=== PATIENT | female | born 1985 | race American Indian/Alaskan Native ===

== ENCOUNTER 2020-05-30 01:51 | Inpatient (IN) | payer OTHER, SELFPAY ==
[2020-05-30] MEDS ORDERED: SODIUM CHLORIDE 0.9% 1000 ML 1,000 ML IV ONE ×2 (02:12→02:14)
[2020-05-30] MEDS ORDERED: FAMOTIDINE 20 MG/2 ML INJ IV ONE ×2 (02:12→05:30)
[2020-05-30] MEDS ORDERED: PROCHLORPERAZINE EDISYLATE 10 MG/2 ML VIAL IV ONE ×2 (02:12→05:45)
[2020-05-30 03:46] LABS: Basophils # (Auto) 0.1 K/mm3 (0.0-0.1); Basophils % (Auto) 0.7 % (0.0-1.8); Lymphocytes % (Auto) 8.5 % (13.4-35.0); Mean Corpuscular HGB Conc 31 % (30-34); Mean Corpuscular Volume 83 fl (79-97); Monocytes # (Auto) 0.9 K/mm3 (0.0-0.8); Monocytes % (Auto) 7.6 % (0.0-7.3); Platelet Count 311 K/mm3 (140-440); Red Blood Count 4.85 M/mm3 (3.65-5.03)
[2020-05-30 04:05] LABS: Hematocrit 40.4 % (30.3-42.9); Hemoglobin 12.4 gm/dl (10.1-14.3)
[2020-05-30 04:09] LABS: Alanine Aminotransferase 19 units/L (7-56); Albumin 4.3 g/dL (3.9-5); BUN/Creatinine Ratio 18; Blood Urea Nitrogen 18 mg/dL (7-17); Calcium 9.6 mg/dL (8.4-10.2); Hemolysis Index 8
--- NOTE | 2020-05-30 04:30 | Event Note ---
Date: 05/30/20 The patient was evaluated in the emergency department for symptoms described in the history of present illness. He/she was evaluated in the context of the global COVID-19 pandemic, which necessitated consideration that the patient might be at risk for infection with the virus that causes COVID-19. Institutional protocols and algorithms that pertain to the evaluation of patients at risk for COVID-19 are in a state of rapid change based on information released by regulatory bodies including the CDC and federal and state organizations. These policies and algorithms were followed during the patient's care in the emergency department. Please note that these policies, procedures and recommendations changed on a rapid basis. Laboratory studies reviewed and appreciated, patient's laboratory studies were brought to my attention by the charge nurse, Mahi Conn This is consistent with diabetic ketoacidosis. I have informed the [facility] charge nurse to bring the patient back to the main emergency room as soon as possible so we may initiate treatment in therapy for presumed diabetic ketoacidosis Vital Signs 05/30/20 02:06 Temperature 97.7 F Pulse Rate 116 H Respiratory 20 Rate Blood Pressure 128/78 [Right] O2 Sat by Pulse 100 Oximetry Lab Results 05/30/20 05/30/20 05/30/20 Range/Units 03:06 03:06 03:06 WBC 11.9 H (4.5-11.0) K/mm3 RBC 4.85 (3.65-5.03) M/mm3 Hgb 12.4 (10.1-14.3) gm/dl Hct 40.4 (30.3-42.9) % MCV 83 (79-97) fl MCH 26 L (28-32) pg MCHC 31 (30-34) % RDW 16.0 H (13.2-15.2) % Plt Count 311 (140-440) K/mm3 Lymph % (Auto) 8.5 L (13.4-35.0) % [place] % (Auto) 7.6 H (0.0-7.3) % Eos % (Auto) 0.0 (0.0-4.3) % Baso % (Auto) 0.7 (0.0-1.8) % Lymph # (Auto) 1.0 L (1.2-5.4) K/mm3 [place] # (Auto) 0.9 H (0.0-0.8) K/mm3 Eos # (Auto) 0.0 (0.0-0.4) K/mm3 Baso # (Auto) 0.1 (0.0-0.1) K/mm3 Seg Neutrophils % 83.2 H (40.0-70.0) % Seg Neutrophils # 9.9 H (1.8-7.7) K/mm3 Sodium 134 L (137-145) mmol/L Potassium 5.1 H (3.6-5.0) mmol/L Chloride 94.1 L (98-107) mmol/L Carbon Dioxide 4 L* (22-30) mmol/L Anion Gap 41 mmol/L BUN 18 H (7-17) mg/dL Creatinine 1.0 (0.6-1.2) mg/dL Estimated GFR > 60 ml/min BUN/Creatinine Ratio 18 % Glucose 616 H* (65-100) mg/dL Calcium 9.6 (8.4-10.2) mg/dL Total Bilirubin 0.20 (0.1-1.2) mg/dL AST 28 (5-40) units/L ALT 19 (7-56) units/L Alkaline Phosphatase 186 H (35-129) units/L Troponin T < 0.010 (0.00-0.029) ng/mL Total Protein 8.0 (6.3-8.2) g/dL Albumin 4.3 (3.9-5) g/dL Albumin/Globulin Ratio 1.2 % Lipase 10 L (13-60) units/L HCG, Qual Negative (Negative)
--- NOTE | 2020-05-30 04:49 | Emergency Department Report ---
ED General Adult HPI - General Chief complaint: Weakness Stated complaint: DIABETIC/WEAKNESS/BODY ACHES PUI?: Yes Time Seen by Provider: 05/30/20 04:49 Source: patient, RN notes reviewed Mode of arrival: Ambulatory Limitations: Physical Limitation - History of Present Illness Initial comments: The patient was evaluated in the emergency department for symptoms described in the history of present illness. He/she was evaluated in the context of the global COVID-19 pandemic, which necessitated consideration that the patient micaela ht be at risk for infection with the virus that causes COVID-19. Institutional protocols and algorithms that pertain to the evaluation of patients at risk for COVID-19 are in a state of rapid change based on information released by regulatory bodies including the CDC and federal and state organizations. These policies and algorithms were followed during the patient's care in the emergency department. Please note that these policies, procedures and recommendations changed on a rapid basis. During the entire history and physical examination, I had on complete personal protective equipment. Primary CARE doctor: Carlos Enrique The patient is a 34-year-old female. She is not known to myself previously. She reports she has a history of type 1 diabetes. She has a history of DKA. She presents to the ER today with a complaint of body aches, malaise, fatigue, weakness, shortness of breath, dry mouth, no loss of taste, no loss of smell, questionable Covid exposure, patient thinks that she has diabetic ketoacidosis and possibly Covid. Symptoms constant for the past 12 hours. Positive nausea. No fever. No loss of taste or smell. No chest pain. Positive shortness of breath. Positive abd ominal cramping. Positive nausea. No dysuria. No focal extremity weakness/numbness -: Gradual, hour(s) Consistency: constant Improves with: rest Worsens with: movement - Related Data Home Medications Medication Instructions Recorded Confirmed Last Taken Insulin Detemir [Levemir Flextouch] unit SQ BID 05/30/20 Unknown Insulin Lispro [Humalog] See Protocol SQ ACHS 05/30/20 05/30/20 Unknown Allergies Allergy/AdvReac Type Severity Reaction Status Date / Time No Known Allergies Allergy Verified 05/31/20 11:12 ED Review of Systems ROS: Stated complaint: DIABETIC/WEAKNESS/BODY ACHES Other details as noted in HPI Constitutional: malaise, weakness, other (Denies loss of taste and smell) Eyes: denies: eye discharge ENT: other (Dry mouth). denies: epistaxis Respiratory: cough, shortness of breath Cardiovascular: denies: chest pain Gastrointestinal: nausea. denies: abdominal pain Genitourinary: denies: dysuria Musculoskeletal: arthralgia, myalgia Neurological: weakness Hematological/Lymphatic: denies: easy bleeding ED Past Medical Hx - Past Medical History Previous Medical History?: Yes Hx Diabetes: Yes (TYPE 1) - Surgical History Past Surgical History?: Yes Additional Surgical History: mouth - Medications Home Medications: Home Medications Medication Instructions Recorded Confirmed Last Taken Type Insulin Detemir [Levemir Flextouch] unit SQ BID 05/30/20 Unknown History Insulin Lispro [Humalog] See Protocol SQ ACHS 05/30/20 05/30/20 Unknown History ED Physical Exam - General Limitations: Physical Limitation General appearance: alert, anxious, in distress - Head Head exam: Present: atraumatic, normocephalic - Eye Eye exam: Present: normal appearance, EOMI. Absent: nystagmus - ENT ENT exam: Present: normal orophraynx, mucous membranes dry, normal external ear exam - Neck Neck exam: Present: normal inspection, full ROM. Absent: tenderness, meningi smus - Respiratory Respiratory exam: Present: respiratory distress, accessory muscle use, other (Pulmonary auscultation not performed secondary to lack of disposable stethoscope). Absent: stridor - Cardiovascular Cardiovascular Exam: Present: other (Cardiac auscultation not performed secondary to lack of disposable stethoscope). Absent: JVD - GI/Abdominal GI/Abdominal exam: Present: soft. Absent: distended, tenderness, guarding, rebound, rigid, pulsatile mass - Extremities Exam Extremities exam: Present: normal inspection, full ROM, other (2+ pulses noted in the bilateral upper and lower extremities. There is no palpable cord. neg ative Homans sign. Muscular compartments are soft. The pelvis is stable.). Absent: pedal edema, calf tenderness - Back Exam Back exam: Present: normal inspection. Absent: tenderness, CVA tenderness (R), CVA tenderness (L), paraspinal tenderness, vertebral tenderness - Neurological Exam Neurological exam: Present: alert, other (No facial droop. Tongue midline. Extraocular movements intact bilaterally. Facial sensation intact to light touch in V1, V2, V3 distribution bilaterally. 5 and a 5 strength in 4 extremi ties. Sensation intact to light touch in 4 extremities.) - Psychiatric Psychiatric exam: Present: anxious - Skin Skin exam: Present: warm, dry, intact, normal color. Absent: rash ED Course Vital Signs 05/30/20 05/30/20 05/30/20 02:06 05:22 05:23 Temperature 97.7 F Pulse Rate 116 H 109 H Respiratory 20 15 16 Rate Blood Pressure Blood Pressure 128/78 [Right] O2 Sat by Pulse 100 100 Oximetry 05/30/20 05/30/20 05/30/20 05:24 05:26 05:28 Temperature Pulse Rate 111 H 110 H 108 H Respiratory 15 14 14 Rate Blood Pressure 119/68 119/68 119/68 Blood Pressure [Right] O2 Sat by Pulse 99 99 99 Oximetry 05/30/20 05/30/20 05/30/20 05:30 05:32 05:34 Temperature Pulse Rate 108 H 109 H 111 H Respiratory 15 15 15 Rate Blood Pressure 125/64 125/64 125/64 Blood Pressure [Right] O2 Sat by Pulse 99 99 100 Oximetry 05/30/20 05/30/20 05/30/20 05:36 05:38 05:40 Temperature Pulse Rate 107 H 111 H 110 H Respiratory 13 15 14 Rate Blood Pressure 125/64 125/64 125/64 Blood Pressure [Right] O2 Sat by Pulse 100 99 100 Oximetry 05/30/20 05/30/20 05/30/20 05:42 05:44 05:45 Temperature Pulse Rate 113 H 111 H 110 H Respiratory 14 14 14 Rate Blood Pressure 125/64 125/64 138/60 Blood Pressure [Right] O2 Sat by Pulse 100 99 99 Oximetry 05/30/20 05/30/20 05/30/20 05:46 05:48 05:50 Temperature Pulse Rate 113 H 111 H 111 H Respiratory 14 15 15 Rate Blood Pressure 138/60 138/60 138/60 Blood Pressure [Right] O2 Sat by Pulse 100 99 99 Oximetry 05/30/20 05/30/20 05/30/20 05:52 05:54 05:56 Temperature Pulse Rate 112 H 109 H 111 H Respiratory 15 14 13 Rate Blood Pressure 138/60 138/60 138/60 Blood Pressure [Right] O2 Sat by Pulse 100 100 100 Oximetry 05/30/20 05/30/20 05/30/20 05:58 06:00 06:02 Temperature Pulse Rate 110 H 108 H 109 H Respiratory 15 15 14 Rate Blood Pressure 138/60 138/60 131/67 Blood Pressure [Right] O2 Sat by Pulse 99 99 99 Oximetry 05/30/20 05/30/20 05/30/20 06:04 06:06 06:08 Temperature Pulse Rate 110 H 107 H 108 H Respiratory 15 14 14 Rate Blood Pressure 131/67 131/67 131/67 Blood Pressure [Right] O2 Sat by Pulse 99 100 100 Oximetry 05/30/20 05/30/20 05/30/20 06:10 06:12 06:14 Temperature Pulse Rate 108 H 108 H 108 H Respiratory 16 13 13 Rate Blood Pressure 131/67 131/67 131/67 Blood Pressure [Right] O2 Sat by Pulse 100 100 100 Oximetry 05/30/20 05/30/20 05/30/20 06:15 06:16 06:18 Temperature Pulse Rate 109 H 110 H 109 H Respiratory 14 16 15 Rate Blood Pressure 138/67 138/67 138/67 Blood Pressure [Right] O2 Sat by Pulse 100 100 99 Oximetry 05/30/20 05/30/20 05/30/20 06:20 06:22 06:24 Temperature Pulse Rate 108 H 109 H 106 H Respiratory 14 14 13 Rate Blood Pressure 138/67 138/67 138/67 Blood Pressure [Right] O2 Sat by Pulse 99 99 99 Oximetry 05/30/20 05/30/20 05/30/20 06:26 06:28 06:30 Temperature Pulse Rate 108 H 107 H 107 H Respiratory 15 15 14 Rate Blood Pressure 138/67 138/67 140/68 Blood Pressure [Right] O2 Sat by Pulse 100 99 100 Oximetry 05/30/20 05/30/20 05/30/20 06:32 06:34 07:39 Temperature 99.1 F Pulse Rate 107 H 109 H Respiratory 14 20 Rate Blood Pressure 138/60 Blood Pressure 131/71 [Right] O2 Sat by Pulse 100 99 Oximetry ED Medical Decision Making - Lab Data Result diagrams: 06/02/20 07:45 06/02/20 07:45 Vital Signs 05/30/20 05/30/20 02:06 05:23 Temperature 97.7 F Pulse Rate 116 H 109 H Respiratory 20 16 Rate Blood Pressure 128/78 [Right] O2 Sat by Pulse 100 100 Oximetry Lab Results 05/30/20 05/30/20 05/30/20 Range/Units 03:06 03:06 03:06 WBC 11.9 H (4.5-11.0) K/mm3 RBC 4.85 (3.65-5.03) M/mm3 Hgb 12.4 (10.1-14.3) gm/dl Hct 40.4 (30.3-42.9) % MCV 83 (79-97) fl MCH 26 L (28-32) pg MCHC 31 (30-34) % RDW 16.0 H (13.2-15.2) % Plt Count 311 (140-440) K/mm3 Lymph % (Auto) 8.5 L (13.4-35.0) % [place] % (Auto) 7.6 H (0.0-7.3) % Eos % (Auto) 0.0 (0.0-4.3) % Baso % (Auto) 0.7 (0.0-1.8) % Lymph # (Auto) 1.0 L (1.2-5.4) K/mm3 [place] # (Auto) 0.9 H (0.0-0.8) K/mm3 Eos # (Auto) 0.0 (0.0-0.4) K/mm3 Baso # (Auto) 0.1 (0.0-0.1) K/mm3 Seg Neutrophils % 83.2 H (40.0-70.0) % Seg Neutrophils # 9.9 H (1.8-7.7) K/mm3 Sodium 134 L (137-145) mmol/L Potassium 5.1 H (3.6-5.0) mmol/L Chloride 94.1 L (98-107) mmol/L Carbon Dioxide 4 L* (22-30) mmol/L Anion Gap 41 mmol/L BUN 18 H (7-17) mg/dL Creatinine 1.0 (0.6-1.2) mg/dL Estimated GFR > 60 ml/min BUN/Creatinine Ratio 18 % Glucose 616 H* (65-100) mg/dL Calcium 9.6 (8.4-10.2) mg/dL Total Bilirubin 0.20 (0.1-1.2) mg/dL AST 28 (5-40) units/L ALT 19 (7-56) units/L Alkaline Phosphatase 186 H (35-129) units/L Troponin T < 0.010 (0.00-0.029) ng/mL Total Protein 8.0 (6.3-8.2) g/dL Albumin 4.3 (3.9-5) g/dL Albumin/Globulin Ratio 1.2 % Lipase 10 L (13-60) units/L HCG, Qual Negative (Negative) - EKG Data -: EKG Interpreted by Me EKG shows normal: sinus rhythm Rate: tachycardia - EKG Data When compared to previous EKG there are: previous EKG unavailable 05/30/20 05:42 EKG interpreted at 2: 20 a.m. Sinus rhythm, tachycardia, 109 bpm. QTC prolonged, 444 ms. High left ve ntricular voltage. Motion artifact. This is an abnormal EKG. This is not a STEMI. - Radiology Data Radiology results: pending, image reviewed interpreted by me: 1 view x-ray of the chest, interpreted by myself, negative for acute findings. - Medical Decision Making Differential diagnosis, including but not limited to: Dehydration, metabolic acidosis, hyperglycemia, diabetic ketoacidosis, viral syndrome, COVID-19 Assessment and plan: 34-year-old female presenting during the COVID-19 pandemic, with nonspecific constitutional symptoms, hypoglycemia, dehydration, anion gap acidosis, pseudohyponatremia, suspicious for diabetic ketoacidosis. X-ray the chest, interpreted by myself, negative for acute findings. Place patient on isolation. Start IV fluids, insulin, DKA protocol. Not hypoxic, do not see indication for steroids at this time. Order appropriate Covid laboratory studies. Patient amenable to admission and hospitalization. Treat the patient supportively. Hospital physician, Dr. Ramos, To admit patient to the intensive care unit. Have contacted critical care physician on-call, Dr. Caldwell, have discussed the patient's history, physical, pertinent laboratory studies and imaging findings, he is in agreement with placement to the intensive care unit for diabetic ketoacidosis. Critical Care Time: Yes Critical care time in (mins) excluding proc time.: 35 Critical care attestation.: If time is entered above; I have spent that time in minutes in the direct care of this critically ill patient, excluding procedure time. ED Disposition Clinical Impression: DKA (diabetic ketoacidoses), Suspected 2019-nCoV infection, Dehydration Disposition: DC-09 OP ADMIT IP TO THIS HOSP Is pt being admited?: Yes Does the pt Need Aspirin: No Condition: Critical
[2020-05-30] MEDS ORDERED: INSULIN REGULAR, HUMAN 100 UNITS/1 ML IV ONE (04:57)
[2020-05-30] MEDS ORDERED: DEXTROSE 50% IN WATER (25GM) 50 ML SYRINGE IV PRN (04:57)
[2020-05-30] MEDS ORDERED: LACTATED RINGERS 2,000 ML IV ONE (04:58)
[2020-05-30] MEDS ORDERED: METOCLOPRAMIDE 10 MG/2 ML INJ IV ONE (04:58)
[2020-05-30] MEDS ORDERED: D5W/0.45% NACL/KCL 20 MEQ 20 MEQ/1,000 ML BAG IV SCH ×2 (05:00→16:00)
--- NOTE | 2020-05-30 05:50 | XRay Report ---
CHEST 1 VIEW INDICATION: dyspnea. COMPARISON: None FINDINGS: SUPPORT DEVICES: None. HEART: Within normal limits. LUNGS/PLEURA: No acute air space or interstitial disease. ADDITIONAL FINDINGS: None. IMPRESSION: 1. No acute findings. Signer Name: Vance Reilly MD Signed: 05/30/2020 5:46 AM Workstation Name: [id number]
[2020-05-30] MEDS ORDERED: hydrALAZINE 20 MG/1 ML INJ IV PRN (05:52)
--- NOTE | 2020-05-30 05:58 | History and Physical Report ---
History of Present Illness Date of examination: 05/30/20 Date of admission: 05/30/20 Chief complaint: Hyperglycemia, weakness, body ache History of present illness: 34-year-old female with past medical history of type 1 diabetes and DKA was brought to the emergency room with a complaint of body aches, malaise, fatigue, weakness, shortness of breath, dry mouth, no loss of taste, no loss of smell, questionable Covid exposure, patient thinks that she has diabetic ketoacidosis and possibly Covid. Symptoms constant for the past 12 hours. Positive nausea. No fever. No loss of taste or smell. No chest pain. Positive shortness of breath. Positive abdominal cramping. Positive nausea. No dysuria. No focal extremity weakness/numbness In the emergency room patient is found to have DKA. Patient blood glucose is 616, bicarb is 4 anion gap 41 Past History Past Medical History: diabetes, other (DKA) Medications and Allergies Allergies Allergy/AdvReac Type Severity Reaction Status Date / Time No Known Allergies Allergy Unverified 05/30/20 02:06 Active Meds: Active Medications Dextrose (Dextrose 50% In Water (25gm) 50 Ml Syringe) 0 ml IV Q30MIN PRN; Protocol PRN Reason: Hypoglycemia Heparin Sodium (Porcine) (Heparin 5,000 Unit/1 Ml Vial) 5,000 unit SUB-Q Q8HR NELLY Hydralazine HCl (Hydralazine 20 Mg/1 Ml Inj) 10 mg IV Q6H PRN PRN Reason: htn Insulin Human Regular 100 (units/ Sodium Chloride) 100 mls @ 1 mls/hr IV TITR NELLY; Protocol Potassium Chloride/Dextrose/Sod Cl (D5w/0.45% Nacl/Kcl 20 Meq) 20 meq in 1,000 mls @ 125 mls/hr IV DIRECT NELLY Lactated Ringer's (Lactated Ringers) 2,000 mls @ 999 mls/hr IV BOLUS ONE Stop: 05/30/20 06:58 Insulin Human Regular 100 (units/ Sodium Chloride) 100 mls @ 1 mls/hr IV TITR NELLY; Protocol Ceftriaxone Sodium (Rocephin/Ns 2 Gm/100 Ml) 2 gm in 100 mls @ 200 mls/hr IV Q24H NELLY; Protocol Sodium Chloride (Sodium Chloride 0.9% 10 Ml Flush Syringe) 10 ml IV PRN NR Stop: 05/31/20 04:59 Review of Systems Constitutional: weakness, malaise Gastrointestinal: nausea Endocrine: excessive thirst, polydipsia, polyuria Exam - Constitutional Vitals: Temp Pulse Resp BP Pulse Ox 97.7 F 109 H 16 128/78 100 05/30/20 02:06 05/30/20 05:23 05/30/20 05:23 05/30/20 02:06 05/30/20 05:23 General appearance: Present: mild distress, well-nourished - EENT Eyes: Present: PERRL ENT: hearing intact, clear oral mucosa - Neck Neck: Present: supple, normal ROM - Respiratory Respiratory effort: normal Respiratory: bilateral: diminished - Cardiovascular Heart Sounds: Present: S1 & S2. Absent: rub, click - Extremities Extremities: pulses symmetrical, No edema Peripheral Pulses: within normal limits - Abdominal General gastrointestinal: Present: soft, non-tender, non-distended, normal bowel sounds Female genitourinary: Present: normal - Integumentary Integumentary: Present: clear, warm, dry - Musculoskeletal Musculoskeletal: gait normal, strength equal bilaterally - Psychiatric Psychiatric: appropriate mood/affect, intact judgment & insight - Neurologic Neurologic: CNII-XII intact, moves all extremities HEART Score - HEART Score Troponin: Troponin T < 0.010 ng/mL (0.00-0.029) 05/30/20 03:06 Results - Labs CBC & Chem 7: 05/30/20 03:06 05/30/20 03:06 Labs: Laboratory Last Values WBC 11.9 K/mm3 (4.5-11.0) H 05/30/20 03:06 RBC 4.85 M/mm3 (3.65-5.03) 05/30/20 03:06 Hgb 12.4 gm/dl (10.1-14.3) 05/30/20 03:06 Hct 40.4 % (30.3-42.9) 05/30/20 03:06 MCV 83 fl (79-97) 05/30/20 03:06 MCH 26 pg (28-32) L 05/30/20 03:06 MCHC 31 % (30-34) 05/30/20 03:06 RDW 16.0 % (13.2-15.2) H 05/30/20 03:06 Plt Count 311 K/mm3 (140-440) 05/30/20 03:06 Lymph % (Auto) 8.5 % (13.4-35.0) L 05/30/20 03:06 [place] % (Auto) 7.6 % (0.0-7.3) H 05/30/20 03:06 Eos % (Auto) 0.0 % (0.0-4.3) 05/30/20 03:06 Baso % (Auto) 0.7 % (0.0-1.8) 05/30/20 03:06 Lymph # (Auto) 1.0 K/mm3 (1.2-5.4) L 05/30/20 03:06 [place] # (Auto) 0.9 K/mm3 (0.0-0.8) H 05/30/20 03:06 Eos # (Auto) 0.0 K/mm3 (0.0-0.4) 05/30/20 03:06 Baso # (Auto) 0.1 K/mm3 (0.0-0.1) 05/30/20 03:06 Seg Neutrophils % 83.2 % (40.0-70.0) H 05/30/20 03:06 Seg Neutrophils # 9.9 K/mm3 (1.8-7.7) H 05/30/20 03:06 D-Dimer 171.45 ng/mlDDU (0-234) 05/30/20 05:18 Sodium 134 mmol/L (137-145) L 05/30/20 03:06 Potassium 5.1 mmol/L (3.6-5.0) H 05/30/20 03:06 Chloride 94.1 mmol/L (98-107) L 05/30/20 03:06 Carbon Dioxide 4 mmol/L (22-30) L* 05/30/20 03:06 Anion Gap 41 mmol/L 05/30/20 03:06 BUN 18 mg/dL (7-17) H 05/30/20 03:06 Creatinine 1.0 mg/dL (0.6-1.2) 05/30/20 03:06 Estimated GFR > 60 ml/min 05/30/20 03:06 BUN/Creatinine Ratio 18 % 05/30/20 03:06 Glucose 616 mg/dL (65-100) H* 04/21/21 03:06 Calcium 9.6 mg/dL (8.4-10.2) 05/30/20 03:06 Phosphorus 5.60 mg/dL (2.5-4.5) H 05/30/20 05:18 Magnesium 2.40 mg/dL (1.7-2.3) H 05/30/20 05:18 Total Bilirubin 0.20 mg/dL (0.1-1.2) 05/30/20 03:06 AST 28 units/L (5-40) 05/30/20 03:06 ALT 19 units/L (7-56) 05/30/20 03:06 Alkaline Phosphatase 186 units/L (35-129) H 05/30/20 03:06 Troponin T < 0.010 ng/mL (0.00-0.029) 05/30/20 03:06 Total Protein 8.0 g/dL (6.3-8.2) 05/30/20 03:06 Albumin 4.3 g/dL (3.9-5) 05/30/20 03:06 Albumin/Globulin Ratio 1.2 % 05/30/20 03:06 Lipase 10 units/L (13-60) L 05/30/20 03:06 HCG, Qual Negative (Negative) 05/30/20 03:06 - Imaging and Cardiology Chest x-ray: image reviewed Assessment and Plan VTE prophylaxis?: Chemical Plan of care discussed with patient/family: Yes - Patient Problems (1) DKA (diabetic ketoacidoses) Current Visit: Yes Status: Acute Plan to address problem: Admit the patient to the ICU. We will put the patient on DKA pathway. IV fluid as per DKA protocol. Insulin drip as per DKA protocol. We will do the serial BMP. We also consult critical care for evaluation. Recheck CBC BMP in the morning (2) Suspected 2019-nCoV infection Current Visit: Yes Status: Acute Plan to address problem: Put the patient on Rocephin 2 g IV daily and Zithromax 500 mg IV daily. DuoNeb nebulizer every 4 hours as needed. Follow the Covid PCR. We already consulted pulmonary for evaluation (3) Dehydration Current Visit: Yes Status: Acute Plan to address problem: Normal saline at the rate of 125 cc/h. Recheck BMP in the morning (4) DVT prophylaxis Current Visit: Yes Status: Acute Plan to address problem: Heparin 5000 units subcu every 8 hours for DVT prophylaxis. Protonix 40 mg p.o. daily for GI prophylaxis. Patient is a full code
[2020-05-30] MEDS ORDERED: INSULIN REGULAR, HUMAN 100 UNITS in SODIUM CHLORIDE 0.9% 99 ML IV SCH (06:00)
[2020-05-30 06:12] LABS: C-Reactive Protein 1.3 mg/dL (0.00-1.30)
[2020-05-30] MEDS: INSULIN REGULAR, HUMAN 100 UNITS in SODIUM CHLORIDE 0.9% 99 ML IV SCH ×2 (06:31→20:15)
[2020-05-30 06:42] LABS: BUN/Creatinine Ratio 22; Blood Urea Nitrogen 22 mg/dL (7-17); Calcium 9.4 mg/dL (8.4-10.2); Hemolysis Index 10
[2020-05-30] MEDS ORDERED: PANTOPRAZOLE 40 MG TAB PO SCH (07:30)
[2020-05-30 08:23] LABS: Mucus,Urine FEW /HPF
[2020-05-30] MEDS: HEPARIN 5,000 UNIT/1 ML VIAL SUB-Q SCH ×3 (08:25→21:15)
[2020-05-30] MEDS ORDERED: ACETAMINOPHEN 325 MG TAB PO PRN (08:27)
[2020-05-30] MEDS ORDERED: SODIUM CHLORIDE 0.9% 1000 ML 1,000 ML IV SCH (08:30)
[2020-05-30] MEDS: cefTRIAXone/NS 2 GM/100 ML 2 GM/100 ML BAG IV SCH (08:34)
[2020-05-30 08:36] LABS: Bilirubin,Urine NEG (Negative); Blood,Urine NEG (Negative); Color,Urine Straw (Yellow); Urobilinogen,Urine < 2.0 mg/dL (<2.0)
[2020-05-30] MEDS: ONDANSETRON 4 MG/2 ML INJ IV PRN (08:45)
[2020-05-30] MEDS: AZITHROMYCIN 250 MG TAB PO SCH (09:11)
[2020-05-30] MEDS ORDERED: FAMOTIDINE 20 MG/2 ML INJ IV SCH (10:00)
[2020-05-30] MEDS ORDERED: PANTOPRAZOLE 40 MG INJ IV SCH (10:00)
[2020-05-30] MEDS ORDERED: SODIUM BICARBONATE 150 MEQ in /WATER, STERILE 1,000 SYR IV SCH (10:00)
[2020-05-30 10:40] LABS: BUN/Creatinine Ratio 23; Blood Urea Nitrogen 23 mg/dL (7-17); Calcium 8.8 mg/dL (8.4-10.2); Hemolysis Index 239
--- NOTE | 2020-05-30 11:24 | Event Note ---
<FIDELINA ANTOINE - Last Filed: 05/30/20 15:34> This is a 34-year-old female with type 1 diabetes with previous hospitalizations for DKA who presents the emergency department on 05/30 with complaints of body aches, malaise, fatigue, weakness, shortness of breath, nausea, abdominal cramping dry mouth, without loss of taste or smell and questionable COVID-19 exposure (per ED documentation). Patient presented with leukocytosis and tachycardia meeting SIRS criteria. Work-up in emergency department revealed pseudohyponatremia, hyperphosphatemia, hypermagnesemia, hyperkalemia, hypochloremia, high anion gap metabolic acidosis, hyperglycemia and ketones in UA. She was admitted to the hospitalist service for DKA and was initiated DKA protocol. CCM was consulted. 05/30: Remains on the insulin gtt, received 2L NS bolus which was ordered in the ED but not administered. VBG ordered. BMP intervals per protocol. COVID 19 pending. Covid 19 infection SIRs DKA Pseudohyponatremia Hyperphosphatemia Hypermagnesemia Hyperkalemia Hypochloremia Hyperglycemia Dehydration Type 1 diabetes -CCM, ID and nutrition consulted, appreciate recommendations -DKA protocol -Insulin gtt, MIVF -COVID 19 PCR positive -Droplet/contact isolation -Zinc, Vitamin C, Vitamin D -No indication of dexamethasone as patient is on room air -Pulmonary hygiene -Trend BMP, Mag, Phos -VBG pending -Hemoglobin A1c 14.5 -Bicarb gtt -s/p 2 LR, 2 NS bolus in the ED, will give 2 additional bolus of LR today DVT/GI prophylaxis: SCDs to bilateral LE while in bed, Heparin sub q, PPI Disposition: ICU for now The high probability of a clinically significant, sudden or life threatening deterioration of the [endo] system(s) required my full and direct attention, intervention and personal management. The aggregate critical care time was [25] minutes. This time is in addition to time spent performing reported procedures but includes the following: [x] Data Review and interpretation [x] Patient assessment and monitoring of vital signs [x] Documentation [x] Medication orders and management <JACKI MCFARLAND - Last Filed: 05/30/20 22:18> Date: 05/30/20 I saw and evaluated the patient. I agree with the findings and the plan of care as documented in the Nurse Practitioner's~note.
[2020-05-30] MEDS ORDERED: D5W/0.45% NACL 1,000 ML IV SCH (13:00)
[2020-05-30] MEDS ORDERED: SODIUM BICARBONATE 150 MEQ in DEXTROSE 5% IN WATER 1,000 ML IV SCH (15:00)
[2020-05-30 15:30] LABS: BUN/Creatinine Ratio 18; Blood Urea Nitrogen 14 mg/dL (7-17); Calcium 8.4 mg/dL (8.4-10.2); Hemolysis Index 0
[2020-05-30] MEDS ORDERED: D5W/0.45% NACL 1,000 ML with POTASSIUM CHLORIDE 20 MEQ IV SCH (15:47)
--- NOTE | 2020-05-30 15:50 | Consultation ---
History of Present Illness - Reason for Consult Consult date: 05/30/20 DKA Requesting physician: EDGAR JONES - History of Present Illness 34 y/o type 1 diabeteic admitted with DKA. Denies any noncompliance with therapy. No sick contacts although she states she may have been exposed to COVID. Remainder is negative. Past History Past Medical History: diabetes, other (DKA) Medications and Allergies Allergies Allergy/AdvReac Type Severity Reaction Status Date / Time No Known Allergies Allergy Verified 05/31/20 11:12 Home Medications Medication Instructions Recorded Confirmed Last Taken Type Insulin Detemir [Levemir Flextouch] unit SQ BID 05/30/20 Unknown History Insulin Lispro [Humalog] See Protocol SQ ACHS 05/30/20 05/30/20 Unknown History Active Meds: Active Medications Acetaminophen (Acetaminophen 325 Mg Tab) 650 mg PO Q6H PRN PRN Reason: Pain MILD(1-3)/Fever >100.5/JUAREZ Ascorbic Acid (Ascorbic Acid 500 Mg Tab) 500 mg PO QDAY NELLY Azithromycin (Azithromycin 250 Mg Tab) 250 mg PO QDAY NELLY; Protocol Last Admin: 05/30/20 09:11 Dose: 250 mg Documented by: Cholecalciferol (Cholecalciferol (Vit D3) 5,000 Unit Tab) 5,000 unit PO DAILY NELLY Dextrose (Dextrose 50% In Water (25gm) 50 Ml Syringe) 0 ml IV Q30MIN PRN; Protocol PRN Reason: Hypoglycemia Famotidine (Famotidine 20 Mg/2 Ml Inj) 20 mg IV DAILY [facility] Last Admin: 05/30/20 09:11 Dose: 20 mg Documented by: Heparin Sodium (Porcine) (Heparin 5,000 Unit/1 Ml Vial) 5,000 unit SUB-Q Q8HR NELLY Last Admin: 05/30/20 13:01 Dose: 5,000 unit Documented by: Hydralazine HCl (Hydralazine 20 Mg/1 Ml Inj) 10 mg IV Q6H PRN PRN Reason: htn Insulin Human Regular 100 (units/ Sodium Chloride) 100 mls @ 1 mls/hr IV TITR [facility]; Protocol Last Titration: 05/30/20 15:32 Dose: 7 units/hr, 7 mls/hr Documented by: Ceftriaxone Sodium (Rocephin/Ns 2 Gm/100 Ml) 2 gm in 100 mls @ 200 mls/hr IV Q24HR NELLY; Protocol Last Admin: 05/30/20 08:34 Dose: 200 mls/hr Documented by: Sodium Chloride (Nacl 0.9% 1000 Ml) 1,000 mls @ 125 mls/hr IV DIRECT NELLY Dextrose/Sodium Chloride (D5/0.45ns) 1,000 mls @ 125 mls/hr IV DIRECT NELLY Sodium Bicarbonate 150 meq/ (Dextrose) 1,150 mls @ 100 mls/hr IV DIRECT NELLY Lactated Ringer's (Lactated Ringers) 1,000 mls @ 999 mls/hr IV BOLUS NELLY Stop: 05/31/20 16:46 Ondansetron HCl (Ondansetron 4 Mg/2 Ml Inj) 4 mg IV Q6HR PRN PRN Reason: Nausea And Vomiting Last Admin: 05/30/20 08:45 Dose: 4 mg Documented by: Sodium Chloride (Sodium Chloride 0.9% 10 Ml Flush Syringe) 10 ml IV PRN NR Stop: 05/31/20 04:59 Zinc Sulfate (Zinc Sulfate 220 Mg Cap) 220 mg PO BID [facility] Exam - Constitutional Vitals: Temp Pulse Resp BP Pulse Ox 98.1 F 108 H 14 131/71 100 05/30/20 12:27 05/30/20 12:00 05/30/20 12:00 05/30/20 07:39 05/30/20 12:00 Results - Labs CBC & Chem 7: 05/30/20 03:06 05/31/20 05:42 Labs: Abnormal lab results 05/30/20 05/30/20 05/30/20 Range/Units 03:06 03:06 05:18 WBC 11.9 H (4.5-11.0) K/mm3 MCH 26 L (28-32) pg RDW 16.0 H (13.2-15.2) % Lymph % (Auto) 8.5 L (13.4-35.0) % [place] % (Auto) 7.6 H (0.0-7.3) % Lymph # (Auto) 1.0 L (1.2-5.4) K/mm3 [place] # (Auto) 0.9 H (0.0-0.8) K/mm3 Seg Neutrophils % 83.2 H (40.0-70.0) % Seg Neutrophils # 9.9 H (1.8-7.7) K/mm3 Sodium 134 L (137-145) mmol/L Potassium 5.1 H (3.6-5.0) mmol/L Chloride 94.1 L (98-107) mmol/L Carbon Dioxide 4 L* (22-30) mmol/L BUN 18 H (7-17) mg/dL Glucose 616 H* (65-100) mg/dL POC Glucose (70-105) mg/dL Hemoglobin A1c (4-6) % Phosphorus 5.60 H (2.5-4.5) mg/dL Magnesium 2.40 H (1.7-2.3) mg/dL Alkaline Phosphatase 186 H (35-129) units/L Lactate Dehydrogenase (91-180) units/L Lipase 10 L (13-60) units/L Coronavirus (PCR) (Negative) 05/30/20 05/30/20 05/30/20 Range/Units 05:18 06:06 07:27 WBC (4.5-11.0) K/mm3 MCH (28-32) pg RDW (13.2-15.2) % Lymph % (Auto) (13.4-35.0) % [place] % (Auto) (0.0-7.3) % Lymph # (Auto) (1.2-5.4) K/mm3 [place] # (Auto) (0.0-0.8) K/mm3 Seg Neutrophils % (40.0-70.0) % Seg Neutrophils # (1.8-7.7) K/mm3 Sodium 135 L (137-145) mmol/L Potassium 5.6 H (3.6-5.0) mmol/L Chloride 95.2 L (98-107) mmol/L Carbon Dioxide 3 L* (22-30) mmol/L BUN 22 H (7-17) mg/dL Glucose 597 H* 684 H* (65-100) mg/dL POC Glucose 507 H (70-105) mg/dL Hemoglobin A1c (4-6) % Phosphorus 6.70 H (2.5-4.5) mg/dL Magnesium 2.40 H 2.60 H (1.7-2.3) mg/dL Alkaline Phosphatase (35-129) units/L Lactate Dehydrogenase 317 H (91-180) units/L Lipase (13-60) units/L Coronavirus (PCR) (Negative) 05/30/20 05/30/20 05/30/20 Range/Units 08:27 08:56 09:20 WBC (4.5-11.0) K/mm3 MCH (28-32) pg RDW (13.2-15.2) % Lymph % (Auto) (13.4-35.0) % [place] % (Auto) (0.0-7.3) % Lymph # (Auto) (1.2-5.4) K/mm3 [place] # (Auto) (0.0-0.8) K/mm3 Seg Neutrophils % (40.0-70.0) % Seg Neutrophils # (1.8-7.7) K/mm3 Sodium (137-145) mmol/L Potassium 5.3 H (3.6-5.0) mmol/L Chloride (98-107) mmol/L Carbon Dioxide 5 L* (22-30) mmol/L BUN 23 H (7-17) mg/dL Glucose 417 H (65-100) mg/dL POC Glucose 447 H 405 H (70-105) mg/dL Hemoglobin A1c (4-6) % Phosphorus (2.5-4.5) mg/dL Magnesium (1.7-2.3) mg/dL Alkaline Phosphatase (35-129) units/L Lactate Dehydrogenase (91-180) units/L Lipase (13-60) units/L Coronavirus (PCR) (Negative) 05/30/20 05/30/20 05/30/20 Range/Units 09:20 09:51 10:00 WBC (4.5-11.0) K/mm3 MCH (28-32) pg RDW (13.2-15.2) % Lymph % (Auto) (13.4-35.0) % [place] % (Auto) (0.0-7.3) % Lymph # (Auto) (1.2-5.4) K/mm3 [place] # (Auto) (0.0-0.8) K/mm3 Seg Neutrophils % (40.0-70.0) % Seg Neutrophils # (1.8-7.7) K/mm3 Sodium (137-145) mmol/L Potassium (3.6-5.0) mmol/L Chloride (98-107) mmol/L Carbon Dioxide (22-30) mmol/L BUN (7-17) mg/dL Glucose (65-100) mg/dL POC Glucose 345 H (70-105) mg/dL Hemoglobin A1c 14.5 H (4-6) % Phosphorus (2.5-4.5) mg/dL Magnesium (1.7-2.3) mg/dL Alkaline Phosphatase (35-129) units/L Lactate Dehydrogenase (91-180) units/L Lipase (13-60) units/L Coronavirus (PCR) Positive A (Negative) 05/30/20 05/30/20 05/30/20 Range/Units 11:07 12:04 13:02 WBC (4.5-11.0) K/mm3 MCH (28-32) pg RDW (13.2-15.2) % Lymph % (Auto) (13.4-35.0) % [place] % (Auto) (0.0-7.3) % Lymph # (Auto) (1.2-5.4) K/mm3 [place] # (Auto) (0.0-0.8) K/mm3 Seg Neutrophils % (40.0-70.0) % Seg Neutrophils # (1.8-7.7) K/mm3 Sodium (137-145) mmol/L Potassium (3.6-5.0) mmol/L Chloride (98-107) mmol/L Carbon Dioxide (22-30) mmol/L BUN (7-17) mg/dL Glucose (65-100) mg/dL POC Glucose 288 H 231 H 210 H (70-105) mg/dL Hemoglobin A1c (4-6) % Phosphorus (2.5-4.5) mg/dL Magnesium (1.7-2.3) mg/dL Alkaline Phosphatase (35-129) units/L Lactate Dehydrogenase (91-180) units/L Lipase (13-60) units/L Coronavirus (PCR) (Negative) 05/30/20 Range/Units 14:51 WBC (4.5-11.0) K/mm3 MCH (28-32) pg RDW (13.2-15.2) % Lymph % (Auto) (13.4-35.0) % [place] % (Auto) (0.0-7.3) % Lymph # (Auto) (1.2-5.4) K/mm3 [place] # (Auto) (0.0-0.8) K/mm3 Seg Neutrophils % (40.0-70.0) % Seg Neutrophils # (1.8-7.7) K/mm3 Sodium (137-145) mmol/L Potassium (3.6-5.0) mmol/L Chloride 115.9 H (98-107) mmol/L Carbon Dioxide 12 L D (22-30) mmol/L BUN (7-17) mg/dL Glucose 242 H (65-100) mg/dL POC Glucose (70-105) mg/dL Hemoglobin A1c (4-6) % Phosphorus (2.5-4.5) mg/dL Magnesium (1.7-2.3) mg/dL Alkaline Phosphatase (35-129) units/L Lactate Dehydrogenase (91-180) units/L Lipase (13-60) units/L Coronavirus (PCR) (Negative) Assessment and Plan COntinue Insulin drip until gap closes Would not suggest bicarb therapy for metabolic acidosis as this could worsen the metabolic acidosis. Patient is awake and alert, not hypotensive. Would like to obtain VBG. if pH is less than 7.2 would be ok with bicarb push to help with acid base balance, otherwise need to correct acidosis with fluids and insulin drip to control ketosis. NPO Guarded prognosis
[2020-05-30] MEDS: ZINC SULFATE 220 MG CAP PO SCH ×2 (16:44→21:15)
[2020-05-30] MEDS: ASCORBIC ACID 500 MG TAB PO SCH (16:44)
[2020-05-30] MEDS: CHOLECALCIFEROL (VIT D3) 5,000 UNIT TAB PO SCH (16:44)
[2020-05-30] MEDS: LACTATED RINGERS 1,000 ML IV SCH ×2 (17:03→18:06)
--- NOTE | 2020-05-30 17:33 | Event Note ---
I updated her brother at bedside during family visitation, Mr. Hatfield, and later called him to inform of Sondra Hatfield COVID 19 PCR positive results. I left a voicemail encouraging for those in contact with patient to be tested and call back number to the hospitalist office for any further questions.
[2020-05-30 22:45] LABS: Blood Urea Nitrogen 8 mg/dL (7-17); Calcium 7.9 mg/dL (8.4-10.2); Hemolysis Index 5
[2020-05-30 22:46] LABS: BUN/Creatinine Ratio 13
[2020-05-31] MEDS: ONDANSETRON 4 MG/2 ML INJ IV PRN ×3 (04:10→14:03)
[2020-05-31] MEDS: HEPARIN 5,000 UNIT/1 ML VIAL SUB-Q SCH ×3 (06:09→22:30)
[2020-05-31 06:10] LABS: Blood Urea Nitrogen 7 mg/dL (7-17); Calcium 8.2 mg/dL (8.4-10.2); Hemolysis Index 8
[2020-05-31 06:11] LABS: BUN/Creatinine Ratio 12
[2020-05-31] MEDS ORDERED: SODIUM CHLORIDE 0.45% 1000 ML 1,000 ML IV SCH (08:00)
[2020-05-31] MEDS ORDERED: SODIUM CHLORIDE 0.9% 1000 ML 1,000 ML IV SCH (08:00)
[2020-05-31] MEDS ORDERED: MAGNESIUM SULFATE 2 GM/50 ML BAG IV ONE (08:00)
[2020-05-31] MEDS ORDERED: SODIUM PHOSPHATE 30 MMOL in SODIUM CHLORIDE 0.9% 500 ML 500 ML IV ONE (08:30)
--- NOTE | 2020-05-31 09:34 | Electrocardiograph Report ---
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
[2020-05-31] MEDS: cefTRIAXone/NS 2 GM/100 ML 2 GM/100 ML BAG IV SCH (09:37)
[2020-05-31] MEDS: PANTOPRAZOLE 40 MG INJ IV SCH (09:37)
[2020-05-31] MEDS: ASCORBIC ACID 500 MG TAB PO SCH (09:38)
[2020-05-31] MEDS: ZINC SULFATE 220 MG CAP PO SCH ×2 (09:38→22:30)
[2020-05-31] MEDS: AZITHROMYCIN 250 MG TAB PO SCH (09:38)
[2020-05-31] MEDS: INSULIN NPH, HUMAN 100 UNIT/1 ML SUB-Q SCH (09:38)
--- NOTE | 2020-05-31 09:40 | Electrocardiograph Report ---
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
[2020-05-31] MEDS: CHOLECALCIFEROL (VIT D3) 5,000 UNIT TAB PO SCH (10:58)
[2020-05-31] MEDS: METOCLOPRAMIDE 10 MG/2 ML INJ IV SCH ×3 (10:58→18:40)
[2020-05-31] MEDS: D5W/0.45% NACL 1,000 ML IV SCH (10:59)
[2020-05-31] MEDS: INSULIN REGULAR, HUMAN 100 UNITS/1 ML SUB-Q SCH ×2 (12:05→18:40)
--- NOTE | 2020-05-31 15:24 | Progress Note ---
<[email or web address] - Last Filed: 05/31/20 15:20> Assessment and Plan Assessment and plan: SIRs Covid 19 infection s/p DKA Hyperchloremia Metabolic acidosis Hypophosphatemia Hypomagnesemia Hyperglycemia Dehydration Intractable nausea/vomiting Type 1 diabetes -CCM, ID and nutrition consulted, appreciate recommendations -s/p DKA protocol, Insulin gtt -COVID 19 PCR positive -Droplet/contact isolation -Zinc, Vitamin C, Vitamin D -No indication of dexamethasone as patient is on room air -Pulmonary hygiene -Trend BMP, Mag, Phos -Repeat phosphate and magnesium -Hemoglobin A1c 14.5 -S/p bicarb gtt -s/p 4 LR, 2 NS -Reglan every 6 hours -CC diet DVT/GI prophylaxis: SCDs to bilateral LE while in bed, Heparin sub q, PPI Disposition: ICU for now, transfer to floor when tolerating PO The high probability of a clinically significant, sudden or life threatening deterioration of the [endo] system(s) required my full and direct attention, intervention and personal management. The aggregate critical care time was [25] minutes. This time is in addition to time spent performing reported procedures but includes the following: [x] Data Review and interpretation [x] Patient assessment and monitoring of vital signs [x] Documentation [x] Medication orders and management History Interval history: This is a 34-year-old female with type 1 diabetes with previous hospitalizations for DKA who presents the emergency department on 05/30 with complaints of body aches, malaise, fatigue, weakness, shortness of breath, nausea, abdominal cramping dry mouth, without loss of taste or smell and questionable COVID-19 exposure (per ED documentation). Patient presented with leukocytosis and tachycardia meeting SIRS criteria. Work-up in emergency department revealed pseudohyponatremia, hyperphosphatemia, hypermagnesemia, hyperkalemia, hypochloremia, high anion gap metabolic acidosis, hyperglycemia and ketones in UA. She was admitted to the hospitalist service for DKA and was initiated DKA protocol. CCM was consulted. 05/30: Remains on the insulin gtt, received 2L NS bolus which was ordered in the ED but not administered. VBG ordered. BMP intervals per protocol. COVID 19 pen ding. 05/31: Patient has hypophosphatemia and hypomagnesemia which were repleted today patient was transitioned off insulin drip onto SSI. Patient was started on Reglan every 6. Patient is still having nausea and vomiting. We will watch in the ICU and transfer her later today or tomorrow. Hospitalist Physical - Constitutional Vitals: Temp Pulse Resp BP Pulse Ox 98.0 F 95 H 12 131/71 98 05/31/20 12:17 05/31/20 12:28 05/31/20 12:28 05/30/20 07:39 05/31/20 12:28 General appearance: Present: no acute distress, well-nourished - EENT Eyes: Present: PERRL, EOM intact ENT: hearing intact, clear oral mucosa - Neck Neck: Present: supple, normal ROM - Respiratory Respiratory effort: normal Respiratory: bilateral: CTA - Cardiovascular Rhythm: regular Heart Sounds: Present: S1 & S2. Absent: systolic murmur, diastolic murmur - Extremities Extremities: no ischemia, pulses intact, pulses symmetrical, No edema, normal temperature, normal color, Full ROM Peripheral Pulses: within normal limits - Abdominal General gastrointestinal: soft, non-tender, non-distended, normal bowel sounds - Integumentary Integumentary: Present: clear, warm, dry - Psychiatric Psychiatric: cooperative - Neurologic Neurologic: CNII-XII intact, no focal deficits, moves all extremities - Allied Health Allied health notes reviewed: nursing, social work HEART Score - HEART Score Troponin: Troponin T < 0.010 ng/mL (0.00-0.029) 05/30/20 03:06 Results - Labs CBC & Chem 7: 05/30/20 03:06 05/31/20 05:42 Labs: Laboratory Last Values WBC 11.9 K/mm3 (4.5-11.0) H 05/30/20 03:06 RBC 4.85 M/mm3 (3.65-5.03) 05/30/20 03:06 Hgb 12.4 gm/dl (10.1-14.3) 05/30/20 03:06 Hct 40.4 % (30.3-42.9) 05/30/20 03:06 MCV 83 fl (79-97) 05/30/20 03:06 MCH 26 pg (28-32) L 05/30/20 03:06 MCHC 31 % (30-34) 05/30/20 03:06 RDW 16.0 % (13.2-15.2) H 05/30/20 03:06 Plt Count 311 K/mm3 (140-440) 05/30/20 03:06 Lymph % (Auto) 8.5 % (13.4-35.0) L 05/30/20 03:06 [place] % (Auto) 7.6 % (0.0-7.3) H 05/30/20 03:06 Eos % (Auto) 0.0 % (0.0-4.3) 05/30/20 03:06 Baso % (Auto) 0.7 % (0.0-1.8) 05/30/20 03:06 Lymph # (Auto) 1.0 K/mm3 (1.2-5.4) L 05/30/20 03:06 [place] # (Auto) 0.9 K/mm3 (0.0-0.8) H 05/30/20 03:06 Eos # (Auto) 0.0 K/mm3 (0.0-0.4) 05/30/20 03:06 Baso # (Auto) 0.1 K/mm3 (0.0-0.1) 05/30/20 03:06 Seg Neutrophils % 83.2 % (40.0-70.0) H 05/30/20 03:06 Seg Neutrophils # 9.9 K/mm3 (1.8-7.7) H 05/30/20 03:06 D-Dimer 171.45 ng/mlDDU (0-234) 05/30/20 05:18 Sodium 137 mmol/L (137-145) 05/31/20 05:42 Potassium 4.0 mmol/L (3.6-5.0) 05/31/20 05:42 Chloride 108.9 mmol/L (98-107) H 05/31/20 05:42 Carbon Dioxide 13 mmol/L (22-30) L 05/31/20 05:42 Anion Gap 19 mmol/L 05/31/20 05:42 BUN 7 mg/dL (7-17) 05/31/20 05:42 Creatinine 0.6 mg/dL (0.6-1.2) 05/31/20 05:42 Estimated GFR > 60 ml/min 05/31/20 05:42 BUN/Creatinine Ratio 12 % 05/31/20 05:42 Glucose 248 mg/dL (65-100) H 05/31/20 05:42 POC Glucose 96 mg/dL (70-105) 05/31/20 07:56 Hemoglobin A1c 14.5 % (4-6) H 05/30/20 09:20 Calcium 8.2 mg/dL (8.4-10.2) L 05/31/20 05:42 Phosphorus 1.70 mg/dL (2.5-4.5) L D 05/31/20 05:42 Magnesium 1.60 mg/dL (1.7-2.3) L 05/31/20 05:42 Ferritin 81.5 ng/mL (10.0-200.0) 05/31/20 09:59 Total Bilirubin 0.20 mg/dL (0.1-1.2) 05/30/20 03:06 AST 28 units/L (5-40) 05/30/20 03:06 ALT 19 units/L (7-56) 05/30/20 03:06 Alkaline Phosphatase 186 units/L (35-129) H 05/30/20 03:06 Lactate Dehydrogenase 355 units/L (91-180) H 05/31/20 09:59 Total Creatine Kinase 59 units/L (30-135) 05/30/20 05:18 Troponin T < 0.010 ng/mL (0.00-0.029) 05/30/20 03:06 C-Reactive Protein 1.30 mg/dL (0.00-1.30) 05/30/20 05:18 Total Protein 8.0 g/dL (6.3-8.2) 05/30/20 03:06 Albumin 4.3 g/dL (3.9-5) 05/30/20 03:06 Albumin/Globulin Ratio 1.2 % 05/30/20 03:06 Lipase 10 units/L (13-60) L 05/30/20 03:06 Procalcitonin 0.05 ng/mL (<0.15) 05/30/20 05:18 HCG, Qual Negative (Negative) 05/30/20 03:06 Urine Color Straw (Yellow) 05/30/20 07:51 Urine Turbidity Clear (Clear) 05/30/20 07:51 Urine pH 5.0 (5.0-7.0) 05/30/20 07:51 Ur Specific [place] 1.022 (1.003-1.030) 05/30/20 07:51 Urine Protein 100 mg/dl mg/dL (Negative) 05/30/20 07:51 Urine Glucose (UA) >=500 mg/dL (Negative) 05/30/20 07:51 Urine Ketones 80 mg/dL (Negative) 05/30/20 07:51 Urine Blood Neg (Negative) 05/30/20 07:51 Urine Nitrite Neg (Negative) 05/30/20 07:51 Ur Reducing Substances Not Reportable 05/30/20 07:51 Urine Bilirubin Neg (Negative) 05/30/20 07:51 Urine Ictotest Not Reportable 05/30/20 07:51 Urine Urobilinogen < 2.0 mg/dL (<2.0) 05/30/20 07:51 Ur Leukocyte Esterase Neg (Negative) 05/30/20 07:51 Urine WBC (Auto) 5.0 /HPF (0.0-6.0) 05/30/20 07:51 Urine RBC (Auto) 2.0 /HPF (0.0-6.0) 05/30/20 07:51 U Epithel Cells (Auto) 2.0 /HPF (0-13.0) 05/30/20 07:51 Urine Mucus Few /HPF 05/30/20 07:51 Coronavirus (PCR) Positive (Negative) A 05/30/20 10:00 Koenig/IV: Voiding Method Bedpan Active Medications - Current Medications Current Medications: Generic Name Dose Route Start Last Admin Trade Name Freq PRN Reason Stop Dose Admin Acetaminophen 650 mg 05/30/20 08:27 Acetaminophen 325 Mg Tab PO Q6H PRN Pain MILD(1-3)/Fever >100.5/JUAREZ Ascorbic Acid 500 mg 05/30/20 16:00 05/31/20 09:38 Ascorbic Acid 500 Mg Tab PO 500 mg QDAY NELLY Administration Azithromycin 250 mg 05/30/20 10:00 05/31/20 09:38 Azithromycin 250 Mg Tab PO 250 mg QDAY NELLY Administration Protocol Cholecalciferol 5,000 unit 05/30/20 16:00 05/31/20 10:58 Cholecalciferol (Vit D3) 5,000 Unit Tab PO 5,000 unit DAILY NELLY Administration Dextrose 0 ml 05/30/20 04:57 Dextrose 50% In Water (25gm) 50 Ml Syringe IV Q30MIN PRN Hypoglycemia Protocol Heparin Sodium (Porcine) 5,000 unit 05/30/20 06:00 05/31/20 14:03 Heparin 5,000 Unit/1 Ml Vial SUB-Q 5,000 unit Q8HR NELLY Administration Hydralazine HCl 10 mg 05/30/20 05:52 Hydralazine 20 Mg/1 Ml Inj IV Q6H PRN htn Ceftriaxone Sodium 2 gm in 100 mls @ 200 mls/hr 05/30/20 06:00 05/31/20 09:37 Rocephin/Ns 2 Gm/100 Ml IV 200 mls/hr Q24HR NELLY Administration Protocol Lactated Ringer's 1,000 mls @ 999 mls/hr 05/30/20 15:45 05/30/20 18:06 Lactated Ringers IV 05/31/20 16:46 999 mls/hr BOLUS NELLY Administration Dextrose/Sodium Chloride 1,000 mls @ 75 mls/hr 05/31/20 11:00 05/31/20 10:59 D5/0.45ns IV 75 mls/hr DIRECT NELLY Administration Insulin Human NPH 25 unit 05/31/20 08:30 05/31/20 09:38 Insulin Nph, Human 100 Unit/1 Ml SUB-Q 25 unit BIDDIAB NELLY Administration Insulin Human Regular 0 units 05/31/20 12:00 05/31/20 12:05 Insulin Regular, Human 100 Units/1 Ml SUB-Q 3 units Q6HR NELLY Administration Protocol Metoclopramide HCl 10 mg 05/31/20 11:30 05/31/20 14:06 Metoclopramide 10 Mg/2 Ml Inj IV Not Given Q6HR NELLY Ondansetron HCl 4 mg 05/30/20 08:27 05/31/20 14:03 Ondansetron 4 Mg/2 Ml Inj IV 4 mg Q6HR PRN Administration Nausea And Vomiting Pantoprazole Sodium 40 mg 05/31/20 10:00 05/31/20 09:37 Pantoprazole 40 Mg Inj IV 40 mg QDAY NELLY Administration Zinc Sulfate 220 mg 05/30/20 15:30 05/31/20 09:38 Zinc Sulfate 220 Mg Cap PO 220 mg BID NELLY Administration Nutrition/Malnutrition Assess - Dietary Evaluation Nutrition/Malnutrition Findings: Nutrition Notes Start: 05/30/20 13:16 Freq: Status: Active Protocol: Document 05/31/20 13:06 CW (Rec: 05/31/20 13:23 CW [id number]) Nutrition Notes Need for Assessment generated from: MD Order,Education Initial or Follow up Assessment Other Pertinent Diagnosis Covid +, DKA Current Diet Cl Liq diet Labs/Tests BG 248 Pertinent Medications Reglan D5 1/2NS at 75ml/hr HUmulin Zofran Height 5 ft 3 in Weight 51.81 kg [place] Body Weight (kg) 52.27 BMI 20.2 Subjective/Other Information F/U for intakes and diet educationPt did not answer phone for diet education x2. Counting Carbohydrate handout provided to RN to be provided to pt. PO intakes are poor at this time d/t N/v. Pt treated with rx and awaiting results Percent of energy/protein needs met: 0%/0% Burn Absent Trauma Absent GI Symptoms Nausea,Vomiting Current % PO Negligible Minimum of two criteria No physical signs of malnutrition #1 Nutrition Diagnosis Inadequate oral intake Etiology loss of appetite As Evidenced by Signs and Symptoms nelgible PO intake and nausea and vomiting. Is patient on ventilator? No Is Patient Ambulatory and/or Out of Bed No REE-([facility]-confined to bed) 2579.124 Calculation Used for Recommendations [facility] Additional Notes protein needs: 41 - 52 g (1 - 1.2 g/kgBW) fluid needs: 1 ml/kcal Nutrition Intervention Change Diet Order: Diet advancement as medically feasible Add Supplement/Snack (indicate name/kcal Ensure Clear TID /protein ) Provides kCal: 720 Provides Protein (gm) 24 Teaching Recipient Patient Teaching Methods Handout Response to Teaching Reinforcement needed Education Handouts Provided Counting Carbohydrates for People with Diabetes Barriers to Learning No Barriers RD phone number provided Yes Patient aware of follow up options Yes Goal #1 Meet at least 75% of kcal and protein needs as best as possible Goal #2 Diet advancement Anticipated Discharge Needs: unable to determine at this time Follow-Up By: 06/04/20 Additional Comments F/U for intakes, diet advancement <JACKI MCFARLAND R - Last Filed: 05/31/20 23:54> Assessment and Plan Assessment and plan: I saw and evaluated the patient. I agree with the findings and the plan of care as documented in the Nurse Practitioner's~note, Hospitalist Physical - Constitutional Vitals: Temp Pulse Resp BP Pulse Ox 98.9 F 110 H 21 158/90 99 05/31/20 23:44 05/31/20 20:01 05/31/20 20:01 05/31/20 21:01 05/31/20 21:01 HEART Score - HEART Score Troponin: Troponin T < 0.010 ng/mL (0.00-0.029) 05/30/20 03:06 Results - Labs CBC & Chem 7: 05/30/20 03:06 05/31/20 05:42 Labs: Laboratory Last Values WBC 11.9 K/mm3 (4.5-11.0) H 05/30/20 03:06 RBC 4.85 M/mm3 (3.65-5.03) 05/30/20 03:06 Hgb 12.4 gm/dl (10.1-14.3) 05/30/20 03:06 Hct 40.4 % (30.3-42.9) 05/30/20 03:06 MCV 83 fl (79-97) 05/30/20 03:06 MCH 26 pg (28-32) L 05/30/20 03:06 MCHC 31 % (30-34) 05/30/20 03:06 RDW 16.0 % (13.2-15.2) H 05/30/20 03:06 Plt Count 311 K/mm3 (140-440) 05/30/20 03:06 Lymph % (Auto) 8.5 % (13.4-35.0) L 05/30/20 03:06 [place] % (Auto) 7.6 % (0.0-7.3) H 05/30/20 03:06 Eos % (Auto) 0.0 % (0.0-4.3) 05/30/20 03:06 Baso % (Auto) 0.7 % (0.0-1.8) 05/30/20 03:06 Lymph # (Auto) 1.0 K/mm3 (1.2-5.4) L 05/30/20 03:06 [place] # (Auto) 0.9 K/mm3 (0.0-0.8) H 05/30/20 03:06 Eos # (Auto) 0.0 K/mm3 (0.0-0.4) 05/30/20 03:06 Baso # (Auto) 0.1 K/mm3 (0.0-0.1) 05/30/20 03:06 Seg Neutrophils % 83.2 % (40.0-70.0) H 05/30/20 03:06 Seg Neutrophils # 9.9 K/mm3 (1.8-7.7) H 05/30/20 03:06 D-Dimer 171.45 ng/mlDDU (0-234) 05/30/20 05:18 Sodium 137 mmol/L (137-145) 05/31/20 05:42 Potassium 4.0 mmol/L (3.6-5.0) 05/31/20 05:42 Chloride 108.9 mmol/L (98-107) H 05/31/20 05:42 Carbon Dioxide 13 mmol/L (22-30) L 05/31/20 05:42 Anion Gap 19 mmol/L 05/31/20 05:42 BUN 7 mg/dL (7-17) 05/31/20 05:42 Creatinine 0.6 mg/dL (0.6-1.2) 05/31/20 05:42 Estimated GFR > 60 ml/min 05/31/20 05:42 BUN/Creatinine Ratio 12 % 05/31/20 05:42 Glucose 248 mg/dL (65-100) H 05/31/20 05:42 POC Glucose 260 mg/dL (70-105) H 05/31/20 21:21 Hemoglobin A1c 14.5 % (4-6) H 05/30/20 09:20 Calcium 8.2 mg/dL (8.4-10.2) L 05/31/20 05:42 Phosphorus 1.70 mg/dL (2.5-4.5) L D 05/31/20 05:42 Magnesium 1.60 mg/dL (1.7-2.3) L 05/31/20 05:42 Ferritin 81.5 ng/mL (10.0-200.0) 05/31/20 09:59 Total Bilirubin 0.20 mg/dL (0.1-1.2) 05/30/20 03:06 AST 28 units/L (5-40) 05/30/20 03:06 ALT 19 units/L (7-56) 05/30/20 03:06 Alkaline Phosphatase 186 units/L (35-129) H 05/30/20 03:06 Lactate Dehydrogenase 355 units/L (91-180) H 05/31/20 09:59 Total Creatine Kinase 59 units/L (30-135) 05/30/20 05:18 Troponin T < 0.010 ng/mL (0.00-0.029) 05/30/20 03:06 C-Reactive Protein 1.30 mg/dL (0.00-1.30) 05/30/20 05:18 Total Protein 8.0 g/dL (6.3-8.2) 05/30/20 03:06 Albumin 4.3 g/dL (3.9-5) 05/30/20 03:06 Albumin/Globulin Ratio 1.2 % 05/30/20 03:06 Lipase 10 units/L (13-60) L 05/30/20 03:06 Procalcitonin 0.05 ng/mL (<0.15) 05/30/20 05:18 HCG, Qual Negative (Negative) 05/30/20 03:06 Urine Color Straw (Yellow) 05/30/20 07:51 Urine Turbidity Clear (Clear) 05/30/20 07:51 Urine pH 5.0 (5.0-7.0) 05/30/20 07:51 Ur Specific [place] 1.022 (1.003-1.030) 05/30/20 07:51 Urine Protein 100 mg/dl mg/dL (Negative) 05/30/20 07:51 Urine Glucose (UA) >=500 mg/dL (Negative) 05/30/20 07:51 Urine Ketones 80 mg/dL (Negative) 05/30/20 07:51 Urine Blood Neg (Negative) 05/30/20 07:51 Urine Nitrite Neg (Negative) 05/30/20 07:51 Ur Reducing Substances Not Reportable 05/30/20 07:51 Urine Bilirubin Neg (Negative) 05/30/20 07:51 Urine Ictotest Not Reportable 05/30/20 07:51 Urine Urobilinogen < 2.0 mg/dL (<2.0) 05/30/20 07:51 Ur Leukocyte Esterase Neg (Negative) 05/30/20 07:51 Urine WBC (Auto) 5.0 /HPF (0.0-6.0) 05/30/20 07:51 Urine RBC (Auto) 2.0 /HPF (0.0-6.0) 05/30/20 07:51 U Epithel Cells (Auto) 2.0 /HPF (0-13.0) 05/30/20 07:51 Urine Mucus Few /HPF 05/30/20 07:51 Coronavirus (PCR) Positive (Negative) A 05/30/20 10:00 Koenig/IV: Voiding Method Bedpan Active Medications - Current Medications Current Medications: Generic Name Dose Route Start Last Admin Trade Name Freq PRN Reason Stop Dose Admin Acetaminophen 650 mg 05/30/20 08:27 Acetaminophen 325 Mg Tab PO Q6H PRN Pain MILD(1-3)/Fever >100.5/JUAREZ Ascorbic Acid 500 mg 05/30/20 16:00 05/31/20 09:38 Ascorbic Acid 500 Mg Tab PO 500 mg QDAY NELLY Administration Cholecalciferol 5,000 unit 05/30/20 16:00 05/31/20 10:58 Cholecalciferol (Vit D3) 5,000 Unit Tab PO 5,000 unit DAILY NELLY Administration Dextrose 0 ml 05/30/20 04:57 Dextrose 50% In Water (25gm) 50 Ml Syringe IV Q30MIN PRN Hypoglycemia Protocol Heparin Sodium (Porcine) 5,000 unit 05/30/20 06:00 05/31/20 14:03 Heparin 5,000 Unit/1 Ml Vial SUB-Q 5,000 unit Q8HR NELLY Administration Hydralazine HCl 10 mg 05/30/20 05:52 Hydralazine 20 Mg/1 Ml Inj IV Q6H PRN htn Dextrose/Sodium Chloride 1,000 mls @ 75 mls/hr 05/31/20 11:00 05/31/20 10:59 D5/0.45ns IV 75 mls/hr DIRECT NELLY Administration Insulin Human NPH 25 unit 05/31/20 08:30 05/31/20 09:38 Insulin Nph, Human 100 Unit/1 Ml SUB-Q 25 unit BIDDIAB NELLY Administration Insulin Human Regular 0 units 05/31/20 12:00 05/31/20 18:40 Insulin Regular, Human 100 Units/1 Ml SUB-Q 3 units Q6HR NELLY Administration Protocol Metoclopramide HCl 10 mg 05/31/20 11:30 05/31/20 18:40 Metoclopramide 10 Mg/2 Ml Inj IV 10 mg Q6HR NELLY Administration Ondansetron HCl 4 mg 05/30/20 08:27 05/31/20 14:03 Ondansetron 4 Mg/2 Ml Inj IV 4 mg Q6HR PRN Administration Nausea And Vomiting Pantoprazole Sodium 40 mg 05/31/20 10:00 05/31/20 09:37 Pantoprazole 40 Mg Inj IV 40 mg QDAY NELLY Administration Zinc Sulfate 220 mg 05/30/20 15:30 05/31/20 09:38 Zinc Sulfate 220 Mg Cap PO 220 mg BID NELLY Administration Nutrition/Malnutrition Assess - Dietary Evaluation Nutrition/Malnutrition Findings: Nutrition Notes Start: 05/30/20 13:16 Freq: Status: Active Protocol: Document 05/31/20 13:06 CW (Rec: 05/31/20 13:23 CW [id number]) Nutrition Notes Need for Assessment generated from: MD Order,Education Initial or Follow up Assessment Other Pertinent Diagnosis Covid +, DKA Current Diet Cl Liq diet Labs/Tests BG 248 Pertinent Medications Reglan D5 1/2NS at 75ml/hr HUmulin Zofran Height 5 ft 3 in Weight 51.81 kg [place] Body Weight (kg) 52.27 BMI 20.2 Subjective/Other Information F/U for intakes and diet educationPt did not answer phone for diet education x2. Counting Carbohydrate handout provided to RN to be provided to pt. PO intakes are poor at this time d/t N/v. Pt treated with rx and awaiting results Percent of energy/protein needs met: 0%/0% Burn Absent Trauma Absent GI Symptoms Nausea,Vomiting Current % PO Negligible Minimum of two criteria No physical signs of malnutrition #1 Nutrition Diagnosis Inadequate oral intake Etiology loss of appetite As Evidenced by Signs and Symptoms nelgible PO intake and nausea and vomiting. Is patient on ventilator? No Is Patient Ambulatory and/or Out of Bed No REE-([facility]-confined to bed) 1079.124 Calculation Used for Recommendations [facility] Additional Notes protein needs: 41 - 52 g (1 - 1.2 g/kgBW) fluid needs: 1 ml/kcal Nutrition Intervention Change Diet Order: Diet advancement as medically feasible Add Supplement/Snack (indicate name/kcal Ensure Clear TID /protein ) Provides kCal: 720 Provides Protein (gm) 24 Teaching Recipient Patient Teaching Methods Handout Response to Teaching Reinforcement needed Education Handouts Provided Counting Carbohydrates for People with Diabetes Barriers to Learning No Barriers RD phone number provided Yes Patient aware of follow up options Yes Goal #1 Meet at least 75% of kcal and protein needs as best as possible Goal #2 Diet advancement Anticipated Discharge Needs: unable to determine at this time Follow-Up By: 06/04/20 Additional Comments F/U for intakes, diet advancement
--- NOTE | 2020-05-31 16:16 | Consultation ---
History of Present Illness - Reason for Consult Consult date: 05/31/20 - History of Present Illness 34-year-old female past medical history type 1 diabetes, DKA presented to hospital complaining of body aches, malaise, fatigue, shortness of breath. She also complains of anosmia and dysgeusia. She believes she was exposed to Covid. Symptoms began approximately 12 hours prior to admission. She was found to have DKA on admission, and Covid testing was positive. Afebrile since admission with tachycardia. White count 11.9, Covid positive. Normal renal function, normal procalcitonin. Currently on ceftriaxone azithromycin. Not on oxygen, not hypoxic. Imaging personally reviewed: Chest x-ray: No acute findings. Review of systems: Deferred to reduce to the risk of transmission of COVID-19 Past History Past Medical History: diabetes, other (DKA) Medications and Allergies Allergies Allergy/AdvReac Type Severity Reaction Status Date / Time No Known Allergies Allergy Verified 05/31/20 11:12 Home Medications Medication Instructions Recorded Confirmed Last Taken Type Insulin Detemir [Levemir Flextouch] unit SQ BID 05/30/20 Unknown History Insulin Lispro [Humalog] See Protocol SQ ACHS 05/30/20 05/30/20 Unknown History Active Meds: Active Medications Acetaminophen (Acetaminophen 325 Mg Tab) 650 mg PO Q6H PRN PRN Reason: Pain MILD(1-3)/Fever >100.5/JUAREZ Ascorbic Acid (Ascorbic Acid 500 Mg Tab) 500 mg PO QDAY [facility] Last Admin: 05/31/20 09:38 Dose: 500 mg Documented by: Azithromycin (Azithromycin 250 Mg Tab) 250 mg PO QDAY NELLY; Protocol Last Admin: 05/31/20 09:38 Dose: 250 mg Documented by: Cholecalciferol (Cholecalciferol (Vit D3) 5,000 Unit Tab) 5,000 unit PO DAILY NELLY Last Admin: 05/31/20 10:58 Dose: 5,000 unit Documented by: Dextrose (Dextrose 50% In Water (25gm) 50 Ml Syringe) 0 ml IV Q30MIN PRN; Protocol PRN Reason: Hypoglycemia Heparin Sodium (Porcine) (Heparin 5,000 Unit/1 Ml Vial) 5,000 unit SUB-Q Q8HR [facility] Last Admin: 05/31/20 14:03 Dose: 5,000 unit Documented by: Hydralazine HCl (Hydralazine 20 Mg/1 Ml Inj) 10 mg IV Q6H PRN PRN Reason: htn Ceftriaxone Sodium (Rocephin/Ns 2 Gm/100 Ml) 2 gm in 100 mls @ 200 mls/hr IV Q24HR [facility]; Protocol Last Admin: 05/31/20 09:37 Dose: 200 mls/hr Documented by: Lactated Ringer's (Lactated Ringers) 1,000 mls @ 999 mls/hr IV BOLUS [facility] Stop: 05/31/20 16:46 Last Admin: 05/30/20 18:06 Dose: 999 mls/hr Documented by: Dextrose/Sodium Chloride (D5/0.45ns) 1,000 mls @ 75 mls/hr IV DIRECT [facility] Last Admin: 05/31/20 10:59 Dose: 75 mls/hr Documented by: Insulin Human NPH (Insulin Nph, Human 100 Unit/1 Ml) 25 unit SUB-Q BIDDIAB [facility] Last Admin: 05/31/20 09:38 Dose: 25 unit Documented by: Insulin Human Regular (Insulin Regular, Human 100 Units/1 Ml) 0 units SUB-Q Q6HR [facility]; Protocol Last Admin: 05/31/20 12:05 Dose: 3 units Documented by: Metoclopramide HCl (Metoclopramide 10 Mg/2 Ml Inj) 10 mg IV Q6HR [facility] Last Admin: 05/31/20 14:06 Dose: Not Given Documented by: Ondansetron HCl (Ondansetron 4 Mg/2 Ml Inj) 4 mg IV Q6HR PRN PRN Reason: Nausea And Vomiting Last Admin: 05/31/20 14:03 Dose: 4 mg Documented by: Pantoprazole Sodium (Pantoprazole 40 Mg Inj) 40 mg IV QDAY [facility] Last Admin: 05/31/20 09:37 Dose: 40 mg Documented by: Zinc Sulfate (Zinc Sulfate 220 Mg Cap) 220 mg PO BID [facility] Last Admin: 05/31/20 09:38 Dose: 220 mg Documented by: Physical Examination - Physical Exam Narrative exam: Physical exam deferred to reduce risk of transmission of COVID-19. Please refer to primary team's note. - Constitutional Vitals: Vital Signs Temp Pulse Resp BP Pulse Ox 99.2 F 95 H 12 131/71 98 05/31/20 16:07 05/31/20 12:28 05/31/20 12:28 05/30/20 07:39 05/31/20 12:28 Temperature -Last 24 Hours Temperature 99.2 F Temperature 98.0 F Temperature 98.8 F Temperature 98.7 F Temperature 98.9 F Temperature 99.0 F Temperature 98.2 F Results - Labs CBC & Chem 7: 05/30/20 03:06 05/31/20 05:42 Labs: Abnormal lab results 05/30/20 05/30/20 05/30/20 Range/Units 14:03 14:50 15:02 Chloride (98-107) mmol/L Carbon Dioxide (22-30) mmol/L Glucose (65-100) mg/dL POC Glucose 218 H 228 H 225 H (70-105) mg/dL Calcium (8.4-10.2) mg/dL Phosphorus (2.5-4.5) mg/dL Magnesium (1.7-2.3) mg/dL Lactate Dehydrogenase (91-180) units/L 05/30/20 05/30/20 05/30/20 Range/Units 16:04 16:16 17:00 Chloride (98-107) mmol/L Carbon Dioxide (22-30) mmol/L Glucose (65-100) mg/dL POC Glucose 191 H 218 H 174 H (70-105) mg/dL Calcium (8.4-10.2) mg/dL Phosphorus (2.5-4.5) mg/dL Magnesium (1.7-2.3) mg/dL Lactate Dehydrogenase (91-180) units/L 05/30/20 05/30/20 05/30/20 Range/Units 18:00 18:39 19:59 Chloride (98-107) mmol/L Carbon Dioxide (22-30) mmol/L Glucose (65-100) mg/dL POC Glucose 155 H 152 H 140 H (70-105) mg/dL Calcium (8.4-10.2) mg/dL Phosphorus (2.5-4.5) mg/dL Magnesium (1.7-2.3) mg/dL Lactate Dehydrogenase (91-180) units/L 05/30/20 05/30/20 05/30/20 Range/Units 21:24 21:59 22:02 Chloride 112.7 H (98-107) mmol/L Carbon Dioxide 16 L (22-30) mmol/L Glucose 168 H (65-100) mg/dL POC Glucose 164 H 162 H (70-105) mg/dL Calcium 7.9 L (8.4-10.2) mg/dL Phosphorus (2.5-4.5) mg/dL Magnesium (1.7-2.3) mg/dL Lactate Dehydrogenase (91-180) units/L 05/30/20 05/30/20 05/31/20 Range/Units 23:11 23:54 02:04 Chloride (98-107) mmol/L Carbon Dioxide (22-30) mmol/L Glucose (65-100) mg/dL POC Glucose 123 H 134 H 110 H (70-105) mg/dL Calcium (8.4-10.2) mg/dL Phosphorus (2.5-4.5) mg/dL Magnesium (1.7-2.3) mg/dL Lactate Dehydrogenase (91-180) units/L 05/31/20 05/31/20 05/31/20 Range/Units 04:05 05:17 05:42 Chloride 108.9 H (98-107) mmol/L Carbon Dioxide 13 L (22-30) mmol/L Glucose 248 H (65-100) mg/dL POC Glucose 116 H 215 H (70-105) mg/dL Calcium 8.2 L (8.4-10.2) mg/dL Phosphorus 1.70 L D (2.5-4.5) mg/dL Magnesium 1.60 L (1.7-2.3) mg/dL Lactate Dehydrogenase (91-180) units/L 05/31/20 05/31/20 05/31/20 Range/Units 06:07 06:50 09:59 Chloride (98-107) mmol/L Carbon Dioxide (22-30) mmol/L Glucose (65-100) mg/dL POC Glucose 174 H 189 H (70-105) mg/dL Calcium (8.4-10.2) mg/dL Phosphorus (2.5-4.5) mg/dL Magnesium (1.7-2.3) mg/dL Lactate Dehydrogenase 355 H (91-180) units/L Assessment and Plan Cultures: Covid PCR: Positive A/P: 34-year-old female past medical history of type 1 diabetes, DKA admitted with DKA. Found to be incidentally Covid positive. #COVID-19: No pneumonia noted on x-ray, not hypoxic. No need for specific treatment at this time. Normal procalcitonin #DKA: Management per primary. # # Recs: -Obtain q48-72h inflammatory markers - ferritin, Ddimer, CRP, LDH -Stop antibiotics due to normal procalcitonin. -Anticoagulation per hospital protocol -No need for specific Covid therapies that she is not hypoxic. -If she becomes hypoxic please start dexamethasone 6 mg every 24 hours Thank you for the consult, we will continue to follow. Josefa Lucas MD [facility] ([facility] O: [phone] F: [phone]
[2020-06-01] MEDS: METOCLOPRAMIDE 10 MG/2 ML INJ IV SCH ×5 (00:05→23:49)
[2020-06-01] MEDS: INSULIN REGULAR, HUMAN 100 UNITS/1 ML SUB-Q SCH ×4 (00:05→17:13)
[2020-06-01] MEDS: D5W/0.45% NACL 1,000 ML IV SCH ×2 (02:06→23:49)
[2020-06-01 05:36] LABS: Blood Urea Nitrogen 3 mg/dL (7-17); Calcium 7.9 mg/dL (8.4-10.2); Hemolysis Index 118
[2020-06-01 05:41] LABS: BUN/Creatinine Ratio 6
[2020-06-01] MEDS: HEPARIN 5,000 UNIT/1 ML VIAL SUB-Q SCH ×3 (05:50→21:06)
[2020-06-01] MEDS ORDERED: MAGNESIUM SULFATE 4 GM/100 ML BAG IV ONE (07:36)
[2020-06-01] MEDS: INSULIN NPH, HUMAN 100 UNIT/1 ML SUB-Q SCH ×3 (08:36→17:52)
[2020-06-01] MEDS: ASCORBIC ACID 500 MG TAB PO SCH (09:04)
[2020-06-01] MEDS: ZINC SULFATE 220 MG CAP PO SCH ×2 (09:04→21:06)
[2020-06-01] MEDS: PANTOPRAZOLE 40 MG INJ IV SCH (09:04)
[2020-06-01] MEDS: CHOLECALCIFEROL (VIT D3) 5,000 UNIT TAB PO SCH (09:04)
[2020-06-01] MEDS: ONDANSETRON 4 MG/2 ML INJ IV PRN (09:04)
[2020-06-01] MEDS ORDERED: SODIUM PHOSPHATE 30 MMOL in SODIUM CHLORIDE 0.9% 500 ML 500 ML IV ONE (10:30)
--- NOTE | 2020-06-01 13:55 | Progress Note ---
Assessment and Plan Cultures: Covid PCR: Positive A/P: 34-year-old female past medical history of type 1 diabetes, DKA admitted with DKA. Found to be incidentally Covid positive. #COVID-19: No pneumonia noted on x-ray, not hypoxic. No need for specific tr eatment at this time. Normal procalcitonin #DKA: Management per primary. Recs: -Obtain q48-72h inflammatory markers - ferritin, Ddimer, CRP, LDH -Stop antibiotics due to normal procalcitonin. -Anticoagulation per hospital protocol -No need for specific Covid therapies that she is not hypoxic. -If she becomes hypoxic please start dexamethasone 6 mg every 24 hours Thank you for the consult, we will continue to follow. Josefa Lucas MD [facility], [place] O: [phone] F: [phone] Subjective Date of service: 06/01/20 Interval history: Afebrile, no acute change. Remains on room air. Objective - Exam Narrative Exam: Physical exam deferred to reduce risk of transmission of COVID-19. Please refer to primary team's note. - Constitutional Vitals: Vital Signs Temp Pulse Resp BP Pulse Ox 98.2 F 99 H 14 140/94 98 06/01/20 12:12 06/01/20 13:30 06/01/20 13:30 06/01/20 13:30 06/01/20 13:30 Temperature -Last 24 Hours Temperature 98.2 F Temperature 99.6 F Temperature 98.4 F Temperature 98.9 F Temperature 99.2 F Temperature 99.2 F - Labs CBC & Chem 7: 05/30/20 03:06 06/01/20 04:28 Labs: Abnormal lab results 05/31/20 05/31/20 05/31/20 Range/Units 11:54 17:42 21:21 D-Dimer (0-234) ng/mlDDU Chloride (98-107) mmol/L Carbon Dioxide (22-30) mmol/L BUN (7-17) mg/dL Creatinine (0.6-1.2) mg/dL Glucose (65-100) mg/dL POC Glucose 222 H 243 H 260 H (70-105) mg/dL Calcium (8.4-10.2) mg/dL Phosphorus (2.5-4.5) mg/dL Lactate Dehydrogenase (91-180) units/L C-Reactive Protein (0.00-1.30) mg/dL 06/01/20 06/01/20 06/01/20 Range/Units 01:57 04:28 04:28 D-Dimer 277.95 H (0-234) ng/mlDDU Chloride 107.6 H (98-107) mmol/L Carbon Dioxide 19 L (22-30) mmol/L BUN 3 L (7-17) mg/dL Creatinine 0.5 L (0.6-1.2) mg/dL Glucose 218 H (65-100) mg/dL POC Glucose 206 H (70-105) mg/dL Calcium 7.9 L (8.4-10.2) mg/dL Phosphorus 1.50 L (2.5-4.5) mg/dL Lactate Dehydrogenase 459 H (91-180) units/L C-Reactive Protein 3.00 H (0.00-1.30) mg/dL 06/01/20 06/01/20 Range/Units 05:14 07:54 D-Dimer (0-234) ng/mlDDU Chloride (98-107) mmol/L Carbon Dioxide (22-30) mmol/L BUN (7-17) mg/dL Creatinine (0.6-1.2) mg/dL Glucose (65-100) mg/dL POC Glucose 199 H 227 H (70-105) mg/dL Calcium (8.4-10.2) mg/dL Phosphorus (2.5-4.5) mg/dL Lactate Dehydrogenase (91-180) units/L C-Reactive Protein (0.00-1.30) mg/dL
--- NOTE | 2020-06-01 16:18 | Progress Note ---
Assessment and Plan Assessment and plan: SIRs Covid 19 infection s/p DKA Hyperchloremia Metabolic acidosis Hypophosphatemia Hyperglycemia Intractable nausea/vomiting Type 1 diabetes -CCM, ID and nutrition consulted, appreciate recommendations -s/p DKA protocol, Insulin gtt -COVID 19 PCR positive -Droplet/contact isolation -Zinc, Vitamin C, Vitamin D -No indication of dexamethasone as patient is on room air -Pulmonary hygiene -Trend BMP,Phos -Repeat phosphate -Hemoglobin A1c 14.5 -S/p bicarb gtt -s/p 4 LR, 2 NS -Reglan every 6 hours -CC diet -SSI, long-acting insulin DVT/GI prophylaxis: SCDs to bilateral LE while in bed, Heparin sub q, PPI Disposition: Transfer to floor The high probability of a clinically significant, sudden or life threatening deterioration of the [endo] system(s) required my full and direct attention, intervention and personal management. The aggregate critical care time was [25] minutes. This time is in addition to time spent performing reported procedures but includes the following: [x] Data Review and interpretation [x] Patient assessment and monitoring of vital signs [x] Documentation [x] Medication orders and management History Interval history: This is a 34-year-old female with type 1 diabetes with previous hospitalizations for DKA who presents the emergency department on 05/30 with complaints of body aches, malaise, fatigue, weakness, shortness of breath, nausea, abdominal cramping dry mouth, without loss of taste or smell and questionable COVID-19 exposure (per ED documentation). Patient presented with leukocytosis and tachycardia meeting SIRS criteria. Work-up in emergency department revealed pseudohyponatremia, hyperphosphatemia, hypermagnesemia, hyperkalemia, hypochloremia, high anion gap metabolic acidosis, hyperglycemia and ketones in UA. She was admitted to the hospitalist service for DKA and was initiated DKA protocol. CCM was consulted. 05/30: Remains on the insulin gtt, received 2L NS bolus which was ordered in the ED but not administered. VBG ordered. BMP intervals per protocol. COVID 19 pending. 05/31: Patient has hypophosphatemia and hypomagnesemia which were repleted today patient was transitioned off insulin drip onto SSI. Patient was started on Reglan every 6. Patient is still having nausea and vomiting. We will watch in the ICU and transfer her later today or tomorrow. 06/01: This morning patient has hypophosphatemia which was repleted. Her anion gap closed yesterday she was transitioned to long-acting insulin and SSI. RN reports less vomiting today therefore she is being transferred to the floor. Patient remains on room air. Hospitalist Physical - Constitutional Vitals: Temp Pulse Resp BP Pulse Ox 98.2 F 89 15 167/104 97 06/01/20 12:12 06/01/20 14:00 06/01/20 14:00 06/01/20 14:00 06/01/20 14:00 General appearance: Present: no acute distress, well-nourished - EENT Eyes: Present: PERRL, EOM intact ENT: hearing intact, clear oral mucosa, dentition normal - Neck Neck: Present: supple, normal ROM - Respiratory Respiratory effort: normal Respiratory: bilateral: CTA - Cardiovascular Rhythm: regular Heart Sounds: Present: S1 & S2. Absent: systolic murmur - Extremities Extremities: no ischemia, pulses intact, pulses symmetrical, No edema, normal temperature, normal color, Full ROM Peripheral Pulses: within normal limits - Abdominal General gastrointestinal: soft, non-tender, non-distended, normal bowel sounds - Integumentary Integumentary: Present: warm, dry - Psychiatric Psychiatric: appropriate mood/affect, cooperative - Neurologic Neurologic: CNII-XII intact, no focal deficits, moves all extremities - Allied Health Allied health notes reviewed: nursing, RT, social work HEART Score - HEART Score Troponin: Troponin T < 0.010 ng/mL (0.00-0.029) 05/30/20 03:06 Results - Labs CBC & Chem 7: 05/30/20 03:06 06/01/20 04:28 Labs: Laboratory Last Values WBC 11.9 K/mm3 (4.5-11.0) H 05/30/20 03:06 RBC 4.85 M/mm3 (3.65-5.03) 05/30/20 03:06 Hgb 12.4 gm/dl (10.1-14.3) 05/30/20 03:06 Hct 40.4 % (30.3-42.9) 05/30/20 03:06 MCV 83 fl (79-97) 05/30/20 03:06 MCH 26 pg (28-32) L 05/30/20 03:06 MCHC 31 % (30-34) 05/30/20 03:06 RDW 16.0 % (13.2-15.2) H 05/30/20 03:06 Plt Count 311 K/mm3 (140-440) 05/30/20 03:06 Lymph % (Auto) 8.5 % (13.4-35.0) L 05/30/20 03:06 [place] % (Auto) 7.6 % (0.0-7.3) H 05/30/20 03:06 Eos % (Auto) 0.0 % (0.0-4.3) 05/30/20 03:06 Baso % (Auto) 0.7 % (0.0-1.8) 05/30/20 03:06 Lymph # (Auto) 1.0 K/mm3 (1.2-5.4) L 05/30/20 03:06 [place] # (Auto) 0.9 K/mm3 (0.0-0.8) H 05/30/20 03:06 Eos # (Auto) 0.0 K/mm3 (0.0-0.4) 05/30/20 03:06 Baso # (Auto) 0.1 K/mm3 (0.0-0.1) 05/30/20 03:06 Seg Neutrophils % 83.2 % (40.0-70.0) H 05/30/20 03:06 Seg Neutrophils # 9.9 K/mm3 (1.8-7.7) H 05/30/20 03:06 D-Dimer 277.95 ng/mlDDU (0-234) H 06/01/20 04:28 Sodium 140 mmol/L (137-145) 06/01/20 04:28 Potassium 3.7 mmol/L (3.6-5.0) 06/01/20 04:28 Chloride 107.6 mmol/L (98-107) H 06/01/20 04:28 Carbon Dioxide 19 mmol/L (22-30) L 06/01/20 04:28 Anion Gap 17 mmol/L 06/01/20 04:28 BUN 3 mg/dL (7-17) L 06/01/20 04:28 Creatinine 0.5 mg/dL (0.6-1.2) L 06/01/20 04:28 Estimated GFR > 60 ml/min 06/01/20 04:28 BUN/Creatinine Ratio 6 % 06/01/20 04:28 Glucose 218 mg/dL (65-100) H 06/01/20 04:28 POC Glucose 227 mg/dL (70-105) H 06/01/20 07:54 Hemoglobin A1c 14.5 % (4-6) H 05/30/20 09:20 Calcium 7.9 mg/dL (8.4-10.2) L 06/01/20 04:28 Phosphorus 1.50 mg/dL (2.5-4.5) L 06/01/20 04:28 Magnesium 2.10 mg/dL (1.7-2.3) 06/01/20 04:28 Ferritin 64.3 ng/mL (10.0-200.0) 06/01/20 04:28 Total Bilirubin 0.20 mg/dL (0.1-1.2) 05/30/20 03:06 AST 28 units/L (5-40) 05/30/20 03:06 ALT 19 units/L (7-56) 05/30/20 03:06 Alkaline Phosphatase 186 units/L (35-129) H 05/30/20 03:06 Lactate Dehydrogenase 459 units/L (91-180) H 06/01/20 04:28 Total Creatine Kinase 59 units/L (30-135) 05/30/20 05:18 Troponin T < 0.010 ng/mL (0.00-0.029) 05/30/20 03:06 C-Reactive Protein 3.00 mg/dL (0.00-1.30) H 06/01/20 04:28 Total Protein 8.0 g/dL (6.3-8.2) 05/30/20 03:06 Albumin 4.3 g/dL (3.9-5) 05/30/20 03:06 Albumin/Globulin Ratio 1.2 % 05/30/20 03:06 Lipase 10 units/L (13-60) L 05/30/20 03:06 Procalcitonin 0.05 ng/mL (<0.15) 05/30/20 05:18 HCG, Qual Negative (Negative) 05/30/20 03:06 Urine Color Straw (Yellow) 05/30/20 07:51 Urine Turbidity Clear (Clear) 05/30/20 07:51 Urine pH 5.0 (5.0-7.0) 05/30/20 07:51 Ur Specific [place] 1.022 (1.003-1.030) 05/30/20 07:51 Urine Protein 100 mg/dl mg/dL (Negative) 05/30/20 07:51 Urine Glucose (UA) >=500 mg/dL (Negative) 05/30/20 07:51 Urine Ketones 80 mg/dL (Negative) 05/30/20 07:51 Urine Blood Neg (Negative) 05/30/20 07:51 Urine Nitrite Neg (Negative) 05/30/20 07:51 Ur Reducing Substances Not Reportable 05/30/20 07:51 Urine Bilirubin Neg (Negative) 05/30/20 07:51 Urine Ictotest Not Reportable 05/30/20 07:51 Urine Urobilinogen < 2.0 mg/dL (<2.0) 05/30/20 07:51 Ur Leukocyte Esterase Neg (Negative) 05/30/20 07:51 Urine WBC (Auto) 5.0 /HPF (0.0-6.0) 05/30/20 07:51 Urine RBC (Auto) 2.0 /HPF (0.0-6.0) 05/30/20 07:51 U Epithel Cells (Auto) 2.0 /HPF (0-13.0) 05/30/20 07:51 Urine Mucus Few /HPF 05/30/20 07:51 Coronavirus (PCR) Positive (Negative) A 05/30/20 10:00 Koenig/IV: Voiding Method Bedpan Active Medications - Current Medications Current Medications: Generic Name Dose Route Start Last Admin Trade Name Freq PRN Reason Stop Dose Admin Acetaminophen 650 mg 05/30/20 08:27 06/01/20 13:54 Acetaminophen 325 Mg Tab PO 650 mg Q6H PRN Administration Pain MILD(1-3)/Fever >100.5/JUAREZ Ascorbic Acid 500 mg 05/30/20 16:00 06/01/20 09:04 Ascorbic Acid 500 Mg Tab PO 500 mg QDAY NELLY Administration Cholecalciferol 5,000 unit 05/30/20 16:00 06/01/20 09:04 Cholecalciferol (Vit D3) 5,000 Unit Tab PO 5,000 unit DAILY NELLY Administration Dextrose 0 ml 05/30/20 04:57 Dextrose 50% In Water (25gm) 50 Ml Syringe IV Q30MIN PRN Hypoglycemia Protocol Heparin Sodium (Porcine) 5,000 unit 05/30/20 06:00 06/01/20 13:55 Heparin 5,000 Unit/1 Ml Vial SUB-Q 5,000 unit Q8HR NELLY Administration Hydralazine HCl 10 mg 05/30/20 05:52 Hydralazine 20 Mg/1 Ml Inj IV Q6H PRN htn Dextrose/Sodium Chloride 1,000 mls @ 75 mls/hr 05/31/20 11:00 06/01/20 02:06 D5/0.45ns IV 75 mls/hr DIRECT NELLY Administration Insulin Human NPH 25 unit 05/31/20 08:30 06/01/20 09:04 Insulin Nph, Human 100 Unit/1 Ml SUB-Q 25 unit BIDDIAB NELLY Administration Insulin Human Regular 0 units 05/31/20 12:00 06/01/20 13:54 Insulin Regular, Human 100 Units/1 Ml SUB-Q 3 units Q6HR NELLY Administration Protocol Metoclopramide HCl 10 mg 05/31/20 11:30 06/01/20 13:54 Metoclopramide 10 Mg/2 Ml Inj IV 10 mg Q6HR NELLY Administration Ondansetron HCl 4 mg 05/30/20 08:27 06/01/20 09:04 Ondansetron 4 Mg/2 Ml Inj IV 4 mg Q6HR PRN Administration Nausea And Vomiting Pantoprazole Sodium 40 mg 05/31/20 10:00 06/01/20 09:04 Pantoprazole 40 Mg Inj IV 40 mg QDAY NELLY Administration Zinc Sulfate 220 mg 05/30/20 15:30 06/01/20 09:04 Zinc Sulfate 220 Mg Cap PO 220 mg BID NELLY Administration Nutrition/Malnutrition Assess - Dietary Evaluation Nutrition/Malnutrition Findings: Nutrition Notes Start: 05/30/20 13:16 Freq: Status: Active Protocol: Document 05/31/20 13:06 CW (Rec: 05/31/20 13:23 CW [id number]) Nutrition Notes Need for Assessment generated from: MD Order,Education Initial or Follow up Assessment Other Pertinent Diagnosis Covid +, DKA Current Diet Cl Liq diet Labs/Tests BG 248 Pertinent Medications Reglan D5 1/2NS at 75ml/hr HUmulin Zofran Height 5 ft 3 in Weight 51.81 kg [place] Body Weight (kg) 52.27 BMI 20.2 Subjective/Other Information F/U for intakes and diet educationPt did not answer phone for diet education x2. Counting Carbohydrate handout provided to RN to be provided to pt. PO intakes are poor at this time d/t N/v. Pt treated with rx and awaiting results Percent of energy/protein needs met: 0%/0% Burn Absent Trauma Absent GI Symptoms Nausea,Vomiting Current % PO Negligible Minimum of two criteria No physical signs of malnutrition #1 Nutrition Diagnosis Inadequate oral intake Etiology loss of appetite As Evidenced by Signs and Symptoms nelgible PO intake and nausea and vomiting. Is patient on ventilator? No Is Patient Ambulatory and/or Out of Bed No REE-([facility]-confined to bed) 0932.427 Calculation Used for Recommendations [facility] Additional Notes protein needs: 41 - 52 g (1 - 1.2 g/kgBW) fluid needs: 1 ml/kcal Nutrition Intervention Change Diet Order: Diet advancement as medically feasible Add Supplement/Snack (indicate name/kcal Ensure Clear TID /protein ) Provides kCal: 720 Provides Protein (gm) 24 Teaching Recipient Patient Teaching Methods Handout Response to Teaching Reinforcement needed Education Handouts Provided Counting Carbohydrates for People with Diabetes Barriers to Learning No Barriers RD phone number provided Yes Patient aware of follow up options Yes Goal #1 Meet at least 75% of kcal and protein needs as best as possible Goal #2 Diet advancement Anticipated Discharge Needs: unable to determine at this time Follow-Up By: 06/04/20 Additional Comments F/U for intakes, diet advancement
[2020-06-02] MEDS: INSULIN REGULAR, HUMAN 100 UNITS/1 ML SUB-Q SCH ×4 (00:56→17:26)
[2020-06-02] MEDS: METOCLOPRAMIDE 10 MG/2 ML INJ IV SCH ×4 (07:11→23:02)
[2020-06-02] MEDS: HEPARIN 5,000 UNIT/1 ML VIAL SUB-Q SCH ×3 (07:11→21:49)
[2020-06-02] MEDS: INSULIN NPH, HUMAN 100 UNIT/1 ML SUB-Q SCH ×2 (08:29→17:20)
[2020-06-02 08:52] LABS: Hematocrit 31.2 % (30.3-42.9); Hemoglobin 10.5 gm/dl (10.1-14.3); Mean Corpuscular HGB Conc 34 % (30-34); Mean Corpuscular Volume 76 fl (79-97); Platelet Count 246 K/mm3 (140-440); Red Blood Count 4.12 M/mm3 (3.65-5.03); Red Cell Distribution Width 15.3 % (13.2-15.2)
[2020-06-02 09:12] LABS: Blood Urea Nitrogen 3 mg/dL (7-17); Calcium 7.8 mg/dL (8.4-10.2); Hemolysis Index 4
[2020-06-02 09:21] LABS: BUN/Creatinine Ratio 8
[2020-06-02] MEDS: ZINC SULFATE 220 MG CAP PO SCH ×2 (10:43→21:48)
[2020-06-02] MEDS: ASCORBIC ACID 500 MG TAB PO SCH (10:43)
[2020-06-02] MEDS: CHOLECALCIFEROL (VIT D3) 5,000 UNIT TAB PO SCH (10:44)
[2020-06-02] MEDS: PANTOPRAZOLE 40 MG TAB PO SCH (10:46)
--- NOTE | 2020-06-02 14:51 | Progress Note ---
Assessment and Plan SIRs Covid 19 infection-not requiring oxygen. Patient satting 100% room air he can get and walk around. Will only need quarantine. s/p DKA-has resolved Accu-Cheks are doing well today. Patient most likely had problems with compliance. Current Accu-Chek 112 high as 179. Will let patient eat diabetic meal. Hyperchloremia resolved Metabolic acidosis-resolved Hypophosphatemia-resolved Hyperglycemia Intractable nausea/vomiting-resolved with treatment of DKA. Continue Reglan. Type 1 diabetes-uncontrolled with tolerating current insulin dose. Anticipated discharge in a.m. -CCM, ID and nutrition consulted, appreciate recommendations -s/p DKA protocol, Insulin gtt -COVID 19 PCR positive -Droplet/contact isolation -Zinc, Vitamin C, Vitamin D -No indication of dexamethasone as patient is on room air -Pulmonary hygiene -Trend BMP,Phos -Repeat phosphate -Hemoglobin A1c 14.5 -S/p bicarb gtt -s/p 4 LR, 2 NS -Reglan every 6 hours -CC diet -SSI, long-acting insulin DVT/GI prophylaxis: SCDs to bilateral LE while in bed, Heparin sub q, PPI Disposition: Transfer to floor Subjective Date of service: 06/02/20 Principal diagnosis: DKA Interval history: 34-year-old female admitted for DKA acute kidney injury. Hospital course complicated by nausea vomiting gastroparesis. Has since resolved. Nausea has resolved today no longer vomiting. Patient should be to tolerate p.o. we will start diabetic diet today. Objective - Constitutional Vitals: Vital Signs - 12hr 06/02/20 06/02/20 04:38 12:37 Temperature 98.3 F 98.0 F Pulse Rate 80 Respiratory 16 18 Rate Blood Pressure 141/93 152/93 O2 Sat by Pulse 97 Oximetry General appearance: Present: no acute distress, well-nourished - EENT Eyes: PERRL, EOM intact ENT: hearing intact, clear oral mucosa Ears: bilateral: normal - Neck Neck: supple, normal ROM - Respiratory Respiratory effort: normal Respiratory: bilateral: CTA - Breasts Breasts: normal - Cardiovascular Rhythm: regular Heart Sounds: Present: S1 & S2. Absent: gallop, rub Extremities: pulses intact, No edema, normal color, Full ROM - Gastrointestinal General gastrointestinal: Present: soft, non-tender, non-distended, normal bowel sounds - Genitourinary Female genitourinary: normal - Integumentary Integumentary: clear, warm, dry - Musculoskeletal Musculoskeletal: 1, strength equal bilaterally - Neurologic Neurologic: moves all extremities - Psychiatric Psychiatric: memory intact, appropriate mood/affect, intact judgment & insight - Labs CBC & Chem 7: 06/02/20 07:45 06/02/20 07:45 Labs: Abnormal lab results 06/01/20 06/01/20 06/01/20 Range/Units 11:35 17:12 21:56 MCV (79-97) fl MCH (28-32) pg RDW (13.2-15.2) % Potassium (3.6-5.0) mmol/L BUN (7-17) mg/dL Creatinine (0.6-1.2) mg/dL Glucose (65-100) mg/dL POC Glucose 221 H 142 H 118 H (70-105) mg/dL Calcium (8.4-10.2) mg/dL Phosphorus (2.5-4.5) mg/dL Magnesium (1.7-2.3) mg/dL 06/02/20 06/02/20 06/02/20 Range/Units 07:25 07:45 07:45 MCV 76 L (79-97) fl MCH 26 L (28-32) pg RDW 15.3 H (13.2-15.2) % Potassium 2.5 L* D (3.6-5.0) mmol/L BUN 3 L (7-17) mg/dL Creatinine 0.4 L (0.6-1.2) mg/dL Glucose 109 H (65-100) mg/dL POC Glucose 111 H (70-105) mg/dL Calcium 7.8 L (8.4-10.2) mg/dL Phosphorus 2.30 L D (2.5-4.5) mg/dL Magnesium 2.40 H (1.7-2.3) mg/dL HEART Score - HEART Score Troponin: Troponin T < 0.010 ng/mL (0.00-0.029) 05/30/20 03:06
[2020-06-02] MEDS: POTASSIUM CHLORIDE 10 MEQ 10 MEQ/100 ML BAG IV SCH ×2 (15:50→17:07)
--- NOTE | 2020-06-02 18:48 | Progress Note ---
Assessment and Plan Cultures: Covid PCR: Positive A/P: 34-year-old female past medical history of type 1 diabetes, DKA admitted with DKA. Found to be incidentally Covid positive. #COVID-19: No pneumonia noted on x-ray, not hypoxic. No need for specific tr eatment at this time. Normal procalcitonin #DKA: Management per primary. Recs: -Obtain q48-72h inflammatory markers - ferritin, Ddimer, CRP, LDH -Stop antibiotics due to normal procalcitonin. -Anticoagulation per hospital protocol -No need for specific Covid therapies that she is not hypoxic. -If she becomes hypoxic please start dexamethasone 6 mg every 24 hours Thank you for the consult, we will sign off. Josefa Lucas MD [facility] O: [phone] F: [phone] Subjective Date of service: 06/02/20 Principal diagnosis: DKA Interval history: Afebrile, white count 8. Remains on room air. Objective - Exam Narrative Exam: Physical exam deferred to reduce risk of transmission of COVID-19. Please refer to primary team's note. - Constitutional Vitals: Vital Signs Temp Pulse Resp BP Pulse Ox 98.5 F 83 20 157/106 100 06/02/20 17:20 06/02/20 17:18 06/02/20 17:20 06/02/20 17:20 06/02/20 17:18 Temperature -Last 24 Hours Temperature 98.5 F Temperature 98.0 F Temperature 98.3 F Temperature 98.6 F - Labs CBC & Chem 7: 06/02/20 07:45 06/02/20 07:45 Labs: Abnormal lab results 06/01/20 06/02/20 06/02/20 Range/Units 21:56 07:25 07:45 MCV 76 L (79-97) fl MCH 26 L (28-32) pg RDW 15.3 H (13.2-15.2) % Potassium (3.6-5.0) mmol/L BUN (7-17) mg/dL Creatinine (0.6-1.2) mg/dL Glucose (65-100) mg/dL POC Glucose 118 H 111 H (70-105) mg/dL Calcium (8.4-10.2) mg/dL Phosphorus (2.5-4.5) mg/dL Magnesium (1.7-2.3) mg/dL 06/02/20 Range/Units 07:45 MCV (79-97) fl MCH (28-32) pg RDW (13.2-15.2) % Potassium 2.5 L* D (3.6-5.0) mmol/L BUN 3 L (7-17) mg/dL Creatinine 0.4 L (0.6-1.2) mg/dL Glucose 109 H (65-100) mg/dL POC Glucose (70-105) mg/dL Calcium 7.8 L (8.4-10.2) mg/dL Phosphorus 2.30 L D (2.5-4.5) mg/dL Magnesium 2.40 H (1.7-2.3) mg/dL
[2020-06-02] MEDS: D5W/0.45% NACL 1,000 ML IV SCH (23:03)
[2020-06-03] MEDS: INSULIN REGULAR, HUMAN 100 UNITS/1 ML SUB-Q SCH ×2 (01:26→06:00)
[2020-06-03 03:25] VITALS: BP 142/96
[2020-06-03] MEDS: METOCLOPRAMIDE 10 MG/2 ML INJ IV SCH (05:41)
[2020-06-03] MEDS: HEPARIN 5,000 UNIT/1 ML VIAL SUB-Q SCH (05:41)
[2020-06-03] MEDS: PANTOPRAZOLE 40 MG TAB PO SCH (07:30)
--- NOTE | 2020-06-03 08:42 | Discharge Summary ---
Providers - Providers Date of Admission: 05/30/20 05:44 Date of discharge: 06/03/20 Attending physician: RAKESH CUEVAS 05/30/20 05:51 Consult to Dietitian/Nutrition [CONS] Routine Physician Instructions: diet education Reason For Exam: DKA Reason for Consult: Nutrition Recommendations Reason for Consult: Diet education 05/30/20 15:23 Consult to Physician [CONS] Routine Comment: Consulting Provider: CARLOS LYNCH Physician Instructions: Reason For Exam: covid 19 Primary care physician: [facility] [employer] Hospitalization Condition: Good Hospital course: 34-year-old female with a history of type 1 diabetes presented to ED with altered mental status found to be in DKA. Patient was admitted to the ICU placed on insulin drip. Gap was closed, electrolytes corrected. Patient regained baseline mental status alert and oriented x3. Hospital course complicated by gastroparesis that was secondary to DKA has since resolved with Reglan and proton pump inhibitor. Patient's blood sugars will stabilize transferred to the floor placed on NPH insulin 25 twice daily. Patient Accu- Cheks are running between 111 and 130. Patient stable for discharge incidentally patient was found to have be positive for COVID-19. Patient did not have any pneumonia was not hypoxic did not require treatment. Just continue quarantine for an additional 10 days. Disposition: DC-01 TO HOME OR SELFCARE Final Discharge Diagnosis (Prints w/discharge instructions): dka - Discharge Diagnoses (1) COVID-19 Status: Acute (2) DKA (diabetic ketoacidoses) Status: Acute (3) Dehydration Status: Acute (4) Hypertension Status: Acute Comment: Will place patient on losartan for renal protection. Core Measure Documentation - Palliative Care Palliative Care/ Comfort Measures: Not Applicable - Core Measures Any of the following diagnoses?: none Exam - Constitutional Vitals: Temp Pulse Resp BP Pulse Ox 98.7 F 95 H 16 142/96 100 06/03/20 03:24 06/03/20 03:24 06/03/20 03:24 06/03/20 03:24 06/03/20 03:24 General appearance: Present: no acute distress, well-nourished - EENT Eyes: Present: PERRL ENT: hearing intact, clear oral mucosa - Neck Neck: Present: supple, normal ROM - Respiratory Respiratory effort: normal Respiratory: bilateral: CTA - Cardiovascular Heart Sounds: Present: S1 & S2. Absent: rub, click - Extremities Extremities: pulses symmetrical, No edema Peripheral Pulses: within normal limits - Abdominal General gastrointestinal: Present: soft, non-tender, non-distended, normal bowel sounds Female genitourinary: Present: normal - Integumentary Integumentary: Present: clear, warm, dry - Musculoskeletal Musculoskeletal: gait normal, strength equal bilaterally - Psychiatric Psychiatric: appropriate mood/affect, intact judgment & insight - Neurologic Neurologic: CNII-XII intact, moves all extremities Plan Activity: no restrictions Weight Bearing Status: Full Weight Bearing Diet: diabetic Follow up with: PRIMARY CARE, [Primary Care Provider] - 3-5 Days Prescriptions: Losartan [Cozaar] 25 mg PO QDAY #30 tablet Insulin NPH, Human [NovoLIN N] 25 unit SUB-Q BIDDIAB #60 units Pantoprazole [Protonix TAB] 40 mg PO QDAC #14 tablet Ascorbic Acid [Vitamin C] 500 mg PO QDAY #20 tablet Cholecalciferol (Vitamin D3) [Vitamin D3] 5,000 unit PO DAILY #20 tablet Zinc Sulfate 220 mg PO BID #14 capsule
[2020-06-03 09:12] LABS: C-Reactive Protein 1.2 mg/dL (0.00-1.30)
[2020-06-03] MEDS: ASCORBIC ACID 500 MG TAB PO SCH (09:44)
[2020-06-03] MEDS: CHOLECALCIFEROL (VIT D3) 5,000 UNIT TAB PO SCH (09:44)
[2020-06-03] MEDS: ZINC SULFATE 220 MG CAP PO SCH (09:45)
[2020-06-03] MEDS: INSULIN NPH, HUMAN 100 UNIT/1 ML SUB-Q SCH (09:48)
[2020-06-03] MEDS ORDERED: LOSARTAN 25 MG TAB PO SCH (10:00)
== END 2020-06-03 13:24 | disposition home or self-care (01) | DRG 637 ==
LOC: ED 01:51 → CC1 05:44 → 3A 06-01 15:40
PROVIDERS: ADMIT Hospitalist; ATTEND Internal Medicine
DX: E10.10 Type 1 diabetes mellitus with ketoacidosis without coma (principal); U07.1 COVID-19; R65.10 Systemic inflammatory response syndrome (SIRS) of non-infectious origin without acute organ dysfunction; E10.43 Type 1 diabetes mellitus with diabetic autonomic (poly)neuropathy; E86.0 Dehydration; E87.5 Hyperkalemia; Z79.4 Long term (current) use of insulin; E83.39 Other disorders of phosphorus metabolism; E83.41 Hypermagnesemia; E87.8 Other disorders of electrolyte and fluid balance, not elsewhere classified; K31.84 Gastroparesis
CPT/HCPCS: 36415; 71045; 80048; 80053; 81001; 82550; 82728; 82947; 82962; 83036; 83615; 83690; 83735; 84100; 84145; 84484; 84703; 85025; 85027; 85379; 86140; 93005; 96365; G0378; C9113; J0360; J0696; J0780; J1644; J1815; J2405; J2765; J3475; J3480; J7030; J7040; J7120; U0003

== ENCOUNTER 2020-11-11 13:19 | Emergency (ER) | payer SELFPAY ==
[2020-11-11 13:42] VITALS: BP 127/81
[2020-11-11] MEDS ORDERED: ONDANSETRON 4 MG/2 ML INJ IV ONE (13:45)
[2020-11-11] MEDS ORDERED: SODIUM CHLORIDE 0.9% 1000 ML 1,000 ML IV ONE ×2 (13:45→14:43)
[2020-11-11] MEDS ORDERED: INSULIN REGULAR, HUMAN 100 UNITS/1 ML IV ONE (13:58)
[2020-11-11 14:08] LABS: Basophils % (Auto) 0.4 % (0.0-1.8); Eosinophils % (Auto) 0.1 % (0.0-4.3); Hemoglobin 12.4 gm/dl (10.1-14.3); Lymphocytes # (Auto) 1.4 K/mm3 (1.2-5.4); Lymphocytes % (Auto) 12.8 % (13.4-35.0); Mean Corpuscular HGB Conc 34 % (30-34); Mean Corpuscular Volume 78 fl (79-97); Monocytes # (Auto) 0.6 K/mm3 (0.0-0.8); Monocytes % (Auto) 5.5 % (0.0-7.3); Platelet Count 291 K/mm3 (140-440); Red Blood Count 4.72 M/mm3 (3.65-5.03)
[2020-11-11 14:28] LABS: Alanine Aminotransferase 19 units/L (7-56); Albumin 4.3 g/dL (3.9-5); BUN/Creatinine Ratio 30; Blood Urea Nitrogen 15 mg/dL (7-17); Calcium 9.5 mg/dL (8.4-10.2); Hemolysis Index 9
--- NOTE | 2020-11-11 14:50 | Emergency Department Report ---
ED N/V/D HPI - General Chief complaint: Nausea/Vomiting/Diarrhea Stated complaint: WEAKNESS,VOMITING Time Seen by Provider: 11/11/20 13:44 Source: patient Mode of arrival: Ambulatory Limitations: No Limitations - History of Present Illness Initial comments: This is a 35-year-old female nontoxic, well nourished in appearance, no acute signs of distress presents to the ED with c/o of nausea and vomiting several days. Stated had some headaches but has resolved prior to arrival. Patient denies thunderclap headache. Patient denies any head trauma. Patient denies any visual changes. Patient denies worse headache. Patient denies facial drooping or one sided weakness. Patient stated she is compliant with her insulin medications and last taken this morning. Patient describes vomiting as food content. Patient denies any abdominal pain, chest pain, short of breath, fever, chills, headache, stiff neck, numbness or tingling. Patient denies any diarrhea or constipation. Denies any blood in stool. Patient denies any recent travels. Patient denies any drug allergies. Patient stated she is currently a type I diabetic MD complaint: nausea, vomiting -: days(s) Description of Vomiting: food contents Associated Abdominal Pain: No Radiation: none Severity: mild Pain Scale: 0 Improves with: none Worsens with: none Associated Symptoms: nausea/vomiting. denies: myalgias, chest pain, cough, diaphoresis, fever/chills, headaches, loss of appetite, malaise, rash, dysuria, shortness of breath, syncope, weakness - Related Data Previous Rx's Medication Instructions Recorded Last Taken Type Ascorbic Acid [Vitamin C] 500 mg PO QDAY #20 tablet 06/03/20 Unknown Rx Cholecalciferol (Vitamin D3) 5,000 unit PO DAILY #20 tablet 06/03/20 Unknown Rx [Vitamin D3] Insulin NPH, Human [NovoLIN N] 25 unit SUB-Q BIDDIAB #60 units 06/03/20 Unknown Rx Losartan [Cozaar] 25 mg PO QDAY #30 tablet 06/03/20 Unknown Rx Pantoprazole [Protonix TAB] 40 mg PO QDAC #14 tablet 06/03/20 Unknown Rx Zinc Sulfate 220 mg PO BID #14 capsule 06/03/20 Unknown Rx Ondansetron [Zofran Odt] 4 mg PO Q8HR PRN #12 tab.rapdis 10/03/21 Unknown Rx cephALEXin [Keflex] 500 mg PO Q8HR #21 cap 11/11/20 Unknown Rx Allergies Allergy/AdvReac Type Severity Reaction Status Date / Time No Known Allergies Allergy Verified 05/31/20 11:12 ED Review of Systems ROS: Stated complaint: WEAKNESS,VOMITING Other details as noted in HPI Constitutional: denies: chills, fever Eyes: denies: eye pain, eye discharge, vision change ENT: denies: ear pain, throat pain Respiratory: denies: cough, shortness of breath, wheezing Cardiovascular: denies: chest pain, palpitations Endocrine: no symptoms reported Gastrointestinal: nausea, vomiting. denies: abdominal pain, diarrhea, constipation, hematemesis, melena, hematochezia Genitourinary: denies: urgency, dysuria, discharge Musculoskeletal: denies: back pain, joint swelling, arthralgia Skin: denies: rash, lesions Neurological: denies: headache, weakness, paresthesias Psychiatric: denies: anxiety, depression Hematological/Lymphatic: denies: easy bleeding, easy bruising ED Past Medical Hx - Past Medical History Previous Medical History?: Yes Hx Diabetes: Yes (TYPE 1) - Surgical History Past Surgical History?: Yes Additional Surgical History: mouth - Social History Smoking Status: Never Smoker - Medications Home Medications: Home Medications Medication Instructions Recorded Confirmed Last Taken Type Ascorbic Acid [Vitamin C] 500 mg PO QDAY #20 tablet 06/03/20 Unknown Rx Cholecalciferol (Vitamin D3) 5,000 unit PO DAILY #20 tablet 06/03/20 Unknown Rx [Vitamin D3] Insulin NPH, Human [NovoLIN N] 25 unit SUB-Q BIDDIAB #60 units 06/03/20 Unknown Rx Losartan [Cozaar] 25 mg PO QDAY #30 tablet 06/03/20 Unknown Rx Pantoprazole [Protonix TAB] 40 mg PO QDAC #14 tablet 06/03/20 Unknown Rx Zinc Sulfate 220 mg PO BID #14 capsule 06/03/20 Unknown Rx Ondansetron [Zofran Odt] 4 mg PO Q8HR PRN #12 tab.rapdis 11/11/20 Unknown Rx cephALEXin [Keflex] 500 mg PO Q8HR #21 cap 11/11/20 Unknown Rx ED Physical Exam - General Limitations: No Limitations General appearance: alert, in no apparent distress - Head Head exam: Present: atraumatic, normocephalic - Eye Eye exam: Present: normal appearance, PERRL, EOMI - Neck Neck exam: Present: normal inspection, full ROM. Absent: tenderness, meningismus, lymphadenopathy - Respiratory Respiratory exam: Present: normal lung sounds bilaterally. Absent: respiratory distress, wheezes, rales, rhonchi, stridor, chest wall tenderness, accessory muscle use, decreased breath sounds, prolonged expiratory - Cardiovascular Cardiovascular Exam: Present: regular rate, normal rhythm, normal heart sounds. Absent: bradycardia, tachycardia, irregular rhythm, systolic murmur, diastolic murmur, rubs, gallop - GI/Abdominal GI/Abdominal exam: Present: soft, normal bowel sounds. Absent: distended, tenderness, guarding, rebound, rigid, diminished bowel sounds - Extremities Exam Extremities exam: Present: normal inspection, full ROM - Back Exam Back exam: Present: normal inspection, full ROM. Absent: tenderness, CVA tenderness (R), CVA tenderness (L), muscle spasm, paraspinal tenderness, vertebral tenderness, rash noted - Neurological Exam Neurological exam: Present: alert, oriented X3, normal gait - Expanded Neurological Exam Expanded Patient oriented to: Present: person, place, time Cranial nerves: EOM's Intact: Normal Cerebellar function: Finger to Nose: Normal Motor strength exam: RUE: 5, LUE: 5, RLE: 5, LLE: 5 Best Eye Response ([place]): (4) open spontaneously Best Motor Response ([place]): (6) obeys commands Best Verbal Response ([place]): (5) oriented Ginny Total: 15 - Psychiatric Psychiatric exam: Present: normal affect, normal mood - Skin Skin exam: Present: warm, dry, intact, normal color. Absent: rash ED Course Vital Signs 11/11/20 13:33 Temperature 98.1 F Pulse Rate 94 H Respiratory 18 Rate Blood Pressure 127/81 [Right] O2 Sat by Pulse 100 Oximetry - Reevaluation(s) Reevaluation #1: 11/11/20 14:48 Patient is speaking in full sentences with no signs of distress noted. - Consultations Consultation #1: 11/11/20 14:47 Patient has been consulted with Shubham Fernandes about patient history, physical exam, and labs and agrees to the ED plan of care with repeat labs and if not worsen patient can be discharged with appropriate follow-up. ED Medical Decision Making - Lab Data Result diagrams: 11/11/20 13:53 11/11/20 17:42 Lab Results 11/11/20 11/11/20 11/11/20 Range/Units 13:41 13:53 13:53 WBC 11.0 (4.5-11.0) K/mm3 RBC 4.72 (3.65-5.03) M/mm3 Hgb 12.4 (10.1-14.3) gm/dl Hct 37.0 (30.3-42.9) % MCV 78 L (79-97) fl MCH 26 L (28-32) pg MCHC 34 (30-34) % RDW 16.0 H (13.2-15.2) % Plt Count 291 (140-440) K/mm3 Lymph % (Auto) 12.8 L (13.4-35.0) % [place] % (Auto) 5.5 (0.0-7.3) % Eos % (Auto) 0.1 (0.0-4.3) % Baso % (Auto) 0.4 (0.0-1.8) % Lymph # (Auto) 1.4 (1.2-5.4) K/mm3 [place] # (Auto) 0.6 (0.0-0.8) K/mm3 Eos # (Auto) 0.0 (0.0-0.4) K/mm3 Baso # (Auto) 0.0 (0.0-0.1) K/mm3 Seg Neutrophils % 81.2 H (40.0-70.0) % Seg Neutrophils # 8.9 H (1.8-7.7) K/mm3 VBG pH (7.320-7.420) Sodium 135 L (137-145) mmol/L Potassium 3.7 (3.6-5.0) mmol/L Chloride 98.0 (98-107) mmol/L Carbon Dioxide 16 L (22-30) mmol/L Anion Gap 25 mmol/L BUN 15 (7-17) mg/dL Creatinine 0.5 L (0.6-1.2) mg/dL Estimated GFR > 60 ml/min BUN/Creatinine Ratio 30 % Glucose 332 H (65-100) mg/dL POC Glucose 330 H (70-105) mg/dL Calcium 9.5 (8.4-10.2) mg/dL Total Bilirubin 0.60 (0.1-1.2) mg/dL AST 22 (5-40) units/L ALT 19 (7-56) units/L Alkaline Phosphatase 123 (35-129) units/L Total Protein 7.9 (6.3-8.2) g/dL Albumin 4.3 (3.9-5) g/dL Albumin/Globulin Ratio 1.2 % HCG, Qual (Negative) Urine Color (Yellow) Urine Turbidity (Clear) Urine pH (5.0-7.0) Ur Specific [place] (1.003-1.030) Urine Protein (Negative) mg/dL Urine Glucose (UA) (Negative) mg/dL Urine Ketones (Negative) mg/dL Urine Blood (Negative) Urine Nitrite (Negative) Urine Bilirubin (Negative) Urine Urobilinogen (<2.0) mg/dL Ur Leukocyte Esterase (Negative) Urine WBC (Auto) (0.0-6.0) /HPF Urine RBC (Auto) (0.0-6.0) /HPF U Epithel Cells (Auto) (0-13.0) /HPF Urine Bacteria (Auto) (Negative) /HPF Urine WBC Clumps /HPF 11/11/20 11/11/20 11/11/20 Range/Units 13:53 13:53 17:30 WBC (4.5-11.0) K/mm3 RBC (3.65-5.03) M/mm3 Hgb (10.1-14.3) gm/dl Hct (30.3-42.9) % MCV (79-97) fl MCH (28-32) pg MCHC (30-34) % RDW (13.2-15.2) % Plt Count (140-440) K/mm3 Lymph % (Auto) (13.4-35.0) % [place] % (Auto) (0.0-7.3) % Eos % (Auto) (0.0-4.3) % Baso % (Auto) (0.0-1.8) % Lymph # (Auto) (1.2-5.4) K/mm3 [place] # (Auto) (0.0-0.8) K/mm3 Eos # (Auto) (0.0-0.4) K/mm3 Baso # (Auto) (0.0-0.1) K/mm3 Seg Neutrophils % (40.0-70.0) % Seg Neutrophils # (1.8-7.7) K/mm3 VBG pH 7.484 H (7.320-7.420) Sodium (137-145) mmol/L Potassium (3.6-5.0) mmol/L Chloride (98-107) mmol/L Carbon Dioxide (22-30) mmol/L Anion Gap mmol/L BUN (7-17) mg/dL Creatinine (0.6-1.2) mg/dL Estimated GFR ml/min BUN/Creatinine Ratio % Glucose (65-100) mg/dL POC Glucose (70-105) mg/dL Calcium (8.4-10.2) mg/dL Total Bilirubin (0.1-1.2) mg/dL AST (5-40) units/L ALT (7-56) units/L Alkaline Phosphatase (35-129) units/L Total Protein (6.3-8.2) g/dL Albumin (3.9-5) g/dL Albumin/Globulin Ratio % HCG, Qual Negative (Negative) Urine Color Yellow (Yellow) Urine Turbidity Cloudy (Clear) Urine pH 5.0 (5.0-7.0) Ur Specific [place] 1.028 (1.003-1.030) Urine Protein 100 mg/dl (Negative) mg/dL Urine Glucose (UA) >=500 (Negative) mg/dL Urine Ketones 80 (Negative) mg/dL Urine Blood Neg (Negative) Urine Nitrite Pos (Negative) Urine Bilirubin Neg (Negative) Urine Urobilinogen < 2.0 (<2.0) mg/dL Ur Leukocyte Esterase Lg (Negative) Urine WBC (Auto) > 182.0 H (0.0-6.0) /HPF Urine RBC (Auto) 3.0 (0.0-6.0) /HPF U Epithel Cells (Auto) 3.0 (0-13.0) /HPF Urine Bacteria (Auto) 4+ (Negative) /HPF Urine WBC Clumps 2+ /HPF 11/11/20 11/11/20 Range/Units 17:42 18:01 WBC (4.5-11.0) K/mm3 RBC (3.65-5.03) M/mm3 Hgb (10.1-14.3) gm/dl Hct (30.3-42.9) % MCV (79-97) fl MCH (28-32) pg MCHC (30-34) % RDW (13.2-15.2) % Plt Count (140-440) K/mm3 Lymph % (Auto) (13.4-35.0) % [place] % (Auto) (0.0-7.3) % Eos % (Auto) (0.0-4.3) % Baso % (Auto) (0.0-1.8) % Lymph # (Auto) (1.2-5.4) K/mm3 [place] # (Auto) (0.0-0.8) K/mm3 Eos # (Auto) (0.0-0.4) K/mm3 Baso # (Auto) (0.0-0.1) K/mm3 Seg Neutrophils % (40.0-70.0) % Seg Neutrophils # (1.8-7.7) K/mm3 VBG pH (7.320-7.420) Sodium 138 (137-145) mmol/L Potassium 3.7 (3.6-5.0) mmol/L Chloride 105.7 (98-107) mmol/L Carbon Dioxide 17 L (22-30) mmol/L Anion Gap 19 mmol/L BUN 14 (7-17) mg/dL Creatinine 0.5 L (0.6-1.2) mg/dL Estimated GFR > 60 ml/min BUN/Creatinine Ratio 28 % Glucose 269 H (65-100) mg/dL POC Glucose 233 H (70-105) mg/dL Calcium 8.3 L (8.4-10.2) mg/dL Total Bilirubin (0.1-1.2) mg/dL AST (5-40) units/L ALT (7-56) units/L Alkaline Phosphatase (35-129) units/L Total Protein (6.3-8.2) g/dL Albumin (3.9-5) g/dL Albumin/Globulin Ratio % HCG, Qual (Negative) Urine Color (Yellow) Urine Turbidity (Clear) Urine pH (5.0-7.0) Ur Specific [place] (1.003-1.030) Urine Protein (Negative) mg/dL Urine Glucose (UA) (Negative) mg/dL Urine Ketones (Negative) mg/dL Urine Blood (Negative) Urine Nitrite (Negative) Urine Bilirubin (Negative) Urine Urobilinogen (<2.0) mg/dL Ur Leukocyte Esterase (Negative) Urine WBC (Auto) (0.0-6.0) /HPF Urine RBC (Auto) (0.0-6.0) /HPF U Epithel Cells (Auto) (0-13.0) /HPF Urine Bacteria (Auto) (Negative) /HPF Urine WBC Clumps /HPF - Medical Decision Making This is a 35-year-old female that presents with UTI with nausea vomiting. Patient is stable and was examined by me. Patient was consulted with Dr. Galo which agrees to the ED plan of care and repeat blood work does not show that patient is in DKA or symptoms worsening. There is no abdominal tenderness. Labs obtained. UA obtained. Vital signs are stable prior to discharge. Patient received medical treatment in the ED which patient stated symptoms has resovled and subsided. Patient also received Rocephin IV and will be discharged with Keflex. Was instructed note to operate any machinery due to possible drowsiness and stated someone will drive the patient home. A by mouth challenge has been obtained and patient tolerated well with no nausea vomiting. Repeat fingerstick of glucose has decreased prior to discharge. Patient was also instructed to Follow-up with a primary care doctor in 3-5 days or if symptoms worsen and continue return to emergency room as soon as possible. At time of discharge, the patient does not seem toxic or ill in appearance. No acute signs of distress noted. Patient agrees to discharge treatment plan of care. No further questions noted by the patient. Critical care attestation.: If time is entered above; I have spent that time in minutes in the direct care of this critically ill patient, excluding procedure time. ED Disposition Clinical Impression: UTI (urinary tract infection) Qualifiers: Urinary tract infection type: acute cystitis Hematuria presence: without hematuria Qualified Code(s): N30.00 - Acute cystitis without hematuria Nausea & vomiting Qualifiers: Vomiting type: unspecified Vomiting Intractability: non-intractable Qualified Code(s): R11.2 - Nausea with vomiting, unspecified Disposition: HOME / SELF CARE / HOMELESS Is pt being admited?: No Does the pt Need Aspirin: No Condition: Stable Instructions: Urinary Tract Infection, Adult Additional Instructions: Follow-up with a primary care doctor in 3-5 days or if symptoms worsen and continue return to emergency room as soon as possible. Prescriptions: cephALEXin [Keflex] 500 mg PO Q8HR #21 cap Ondansetron [Zofran Odt] 4 mg PO Q8HR PRN #12 tab.rapdis PRN Reason: Nausea Referrals: PRIMARY MD CHANDU [Referring] - 3-5 Days ZE MILTON MD [Staff Physician] - 3-5 Days Forms: Work/School Release Form(ED) Time of Disposition: 18:09
[2020-11-11] MEDS ORDERED: METOCLOPRAMIDE 10 MG/2 ML INJ IV ONE (16:29)
[2020-11-11 17:47] LABS: Bacteria,Urine 4+ /HPF (Negative); Bilirubin,Urine NEG (Negative); Blood,Urine NEG (Negative); Color,Urine Yellow (Yellow); Urobilinogen,Urine < 2.0 mg/dL (<2.0)
[2020-11-11 17:48] LABS: WBC,Urine > 182.0 /HPF (0.0-6.0)
[2020-11-11] MEDS ORDERED: cefTRIAXone/NS 2 GM/100 ML 2 GM/100 ML BAG IV ONE (17:49)
[2020-11-11 18:03] LABS: Blood Urea Nitrogen 14 mg/dL (7-17); Calcium 8.3 mg/dL (8.4-10.2); Hemolysis Index 13
[2020-11-11 18:05] LABS: BUN/Creatinine Ratio 28
== END 2020-11-11 21:52 | disposition home or self-care (01) ==
LOC: ED 13:19
DX: N39.0 Urinary tract infection, site not specified (principal); R11.2 Nausea with vomiting, unspecified; E10.8 Type 1 diabetes mellitus with unspecified complications
CPT/HCPCS: 36415; 80048; 80053; 81001; 82805; 82962; 84703; 85025; 96361; 96365; 96375; 99283; J0696; J2405; J2765; J7030; J1815

== ENCOUNTER 2020-11-20 11:00 | Emergency (ER) | payer SELFPAY ==
[2020-11-20] MEDS ORDERED: diphenhydrAMINE 50 MG/ML VIAL IV ONE (11:15)
[2020-11-20] MEDS ORDERED: SODIUM CHLORIDE 0.9% 1000 ML 1,000 ML IV ONE ×2 (11:15→12:33)
[2020-11-20] MEDS ORDERED: METOCLOPRAMIDE 10 MG/2 ML INJ IV ONE (11:15)
--- NOTE | 2020-11-20 11:46 | Emergency Department Report ---
ED Headache HPI - General Chief Complaint: Nausea/Vomiting/Diarrhea Stated Complaint: DIABETIC/VOMITING/HEADACHE Time Seen by Provider: 11/20/20 11:12 Source: patient, RN notes reviewed Exam Limitations: no limitations - History of Present Illness Initial Comments: This is a 35-year-old female nontoxic, well nourished in appearance, no acute signs of distress presents to the ED with c/o of acute on chronic headache that started yesterday. Patient describes headache as diffuse with level of 3 out of 10. Patient stated this is a typical migraine headache which she develops and becomes nauseated and has vomiting. Denies any abdominal pain otherwise. Denies any other complaints or symptoms. Patient denies thunderclap headache. Patient denies any radiation of pain. Patient denies any head trauma. Patient denies any visual changes. Patient denies worse headache. Patient stated that darkness makes headache better and bright lights make the headache worse. Patient denies any numbness, tingling, fever, chills, nausea, vomiting, chest pain, shortness of breath, stiff neck. Patient denies facial drooping or one sided weakness. Patient denies any radiation of pain. Patient denies any allergies. Past medical history includes migraine headaches and DM type I. Timing/Duration: episodic Quality: mild, achy Head Injury Location: other (diffuse) Recent Head Trauma: occasional headaches Associated Symptoms: nausea/vomiting. denies: confusion, fatigue, facial pain, fever/chills, flushing, loss of consciousness, nasal congestion, nasal drainage, numbness in legs/feet, rash, seizures, sinus infection, stiff neck, vision changes, weakness Allergies/Adverse Reactions: Allergies No Known Allergies Allergy (Verified 05/31/20 11:12) Home Medications: Ambulatory Orders Ascorbic Acid [Vitamin C] 500 mg PO QDAY #20 tablet 06/03/20 Cholecalciferol (Vitamin D3) [Vitamin D3] 5,000 unit PO DAILY #20 tablet 06/03/20 Insulin NPH, Human [NovoLIN N] 25 unit SUB-Q BIDDIAB #60 units 06/03/20 Losartan [Cozaar] 25 mg PO QDAY #30 tablet 06/03/20 Pantoprazole [Protonix TAB] 40 mg PO QDAC #14 tablet 06/03/20 Zinc Sulfate 220 mg PO BID #14 capsule 06/03/20 Ondansetron [Zofran Odt] 4 mg PO Q8HR PRN #12 tab.rapdis 11/11/20 cephALEXin [Keflex] 500 mg PO Q8HR #21 cap 11/11/20 Butalb/Acetaminophen/Caffeine [Fioricet 50-300-40 mg CAP] 1 cap PO Q8HR PRN #12 cap 11/20/20 Ondansetron [Zofran Odt] 4 mg PO Q12H PRN #12 tab.rapdis 11/20/20 ED Review of Systems ROS: Stated complaint: DIABETIC/VOMITING/HEADACHE Other details as noted in HPI Comment: All other systems reviewed and negative Constitutional: denies: chills, fever Eyes: denies: eye pain, eye discharge, vision change ENT: denies: ear pain, throat pain Respiratory: denies: cough, shortness of breath, wheezing Cardiovascular: denies: chest pain, palpitations Endocrine: no symptoms reported Gastrointestinal: nausea, vomiting. denies: abdominal pain, diarrhea, constipation, hematemesis, melena, hematochezia Genitourinary: denies: urgency, dysuria, discharge Musculoskeletal: denies: back pain, joint swelling, arthralgia Skin: denies: rash, lesions Neurological: headache. denies: weakness, numbness, paresthesias, confusion, abnormal gait, vertigo Psychiatric: denies: anxiety, depression Hematological/Lymphatic: denies: easy bleeding, easy bruising ED Past Medical Hx - Past Medical History Previous Medical History?: Yes Hx Diabetes: Yes (TYPE 1) - Surgical History Additional Surgical History: mouth - Social History Smoking Status: Never Smoker - Medications Home Medications: Home Medications Medication Instructions Recorded Confirmed Last Taken Type Ascorbic Acid [Vitamin C] 500 mg PO QDAY #20 tablet 06/03/20 Unknown Rx Cholecalciferol (Vitamin D3) 5,000 unit PO DAILY #20 tablet 06/03/20 Unknown Rx [Vitamin D3] Insulin NPH, Human [NovoLIN N] 25 unit SUB-Q BIDDIAB #60 units 06/03/20 Unknown Rx Losartan [Cozaar] 25 mg PO QDAY #30 tablet 06/03/20 Unknown Rx Pantoprazole [Protonix TAB] 40 mg PO QDAC #14 tablet 06/03/20 Unknown Rx Zinc Sulfate 220 mg PO BID #14 capsule 06/03/20 Unknown Rx Ondansetron [Zofran Odt] 4 mg PO Q8HR PRN #12 tab.rapdis 11/11/20 Unknown Rx cephALEXin [Keflex] 500 mg PO Q8HR #21 cap 11/11/20 Unknown Rx Butalb/Acetaminophen/Caffeine 1 cap PO Q8HR PRN #12 cap 11/20/20 Unknown Rx [Fioricet 50-300-40 mg CAP] Ondansetron [Zofran Odt] 4 mg PO Q12H PRN #12 tab.rapdis 11/20/20 Unknown Rx ED Physical Exam - General Limitations: No Limitations General appearance: alert, in no apparent distress - Head Head exam: Present: atraumatic, normocephalic - Eye Eye exam: Present: normal appearance, PERRL, EOMI - ENT ENT exam: Present: normal exam, normal orophraynx - Neck Neck exam: Present: normal inspection, full ROM. Absent: tenderness, meningismus, lymphadenopathy - Respiratory Respiratory exam: Present: normal lung sounds bilaterally. Absent: respiratory distress, wheezes, rales, rhonchi, stridor, chest wall tenderness, accessory muscle use, decreased breath sounds, prolonged expiratory - Cardiovascular Cardiovascular Exam: Present: regular rate, normal rhythm, normal heart sounds. Absent: bradycardia, tachycardia, irregular rhythm, systolic murmur, diastolic murmur, rubs, gallop - GI/Abdominal GI/Abdominal exam: Present: soft, normal bowel sounds. Absent: distended, tenderness, guarding, rebound, rigid, diminished bowel sounds - Extremities Exam Extremities exam: Present: normal inspection, full ROM, normal capillary refill. Absent: tenderness - Back Exam Back exam: Present: normal inspection, full ROM. Absent: tenderness, CVA tenderness (R), CVA tenderness (L), muscle spasm, paraspinal tenderness, vertebral tenderness, rash noted - Neurological Exam Neurological exam: Present: alert, oriented X3, normal gait - Expanded Neurological Exam Expanded Patient oriented to: Present: person, place, time Cranial nerves: EOM's Intact: Normal, Facial Sensation: Normal Cerebellar function: Finger to Nose: Normal Upper motor neuron: Pronator Drift: Normal, Sensory Extinction: Normal Motor strength exam: RUE: 5, LUE: 5, RLE: 5, LLE: 5 Best Eye Response ([place]): (4) open spontaneously Best Motor Response ([place]): (6) obeys commands Best Verbal Response ([place]): (5) oriented [place] Total: 15 - Psychiatric Psychiatric exam: Present: normal affect, normal mood - Skin Skin exam: Present: warm, dry, intact, normal color. Absent: rash ED Course Vital Signs 11/20/20 11/20/20 11:10 14:57 Temperature 98.2 F 97.7 F Pulse Rate 99 H 91 H Respiratory 16 20 Rate Blood Pressure 168/94 Blood Pressure 134/86 [Left] O2 Sat by Pulse 99 100 Oximetry - Reevaluation(s) Reevaluation #1: 11/20/20 11:48 Patient is speaking in full sentences with no signs of distress noted. Reevaluation #2: 11/20/20 14:18 Patient is resting comfortably with no acute signs of distress. Vital signs are stable. Patient stated symptoms of headache and nausea vomiting have subsided. Will repeat BMP and if normal patient can be discharged with appropriate follow-up. ED Medical Decision Making - Lab Data Result diagrams: 11/20/20 11:20 11/20/20 15:00 Lab Results 11/20/20 11/20/20 11/20/20 Range/Units 11:20 11:20 11:20 WBC 11.3 H (4.5-11.0) K/mm3 RBC 4.24 (3.65-5.03) M/mm3 Hgb 11.0 (10.1-14.3) gm/dl Hct 33.6 (30.3-42.9) % MCV 79 (79-97) fl MCH 26 L (28-32) pg MCHC 33 (30-34) % RDW 15.2 (13.2-15.2) % Plt Count 270 (140-440) K/mm3 Lymph % (Auto) 12.3 L (13.4-35.0) % [place] % (Auto) 5.5 (0.0-7.3) % Eos % (Auto) 0.1 (0.0-4.3) % Baso % (Auto) 0.4 (0.0-1.8) % Lymph # (Auto) 1.4 (1.2-5.4) K/mm3 [place] # (Auto) 0.6 (0.0-0.8) K/mm3 Eos # (Auto) 0.0 (0.0-0.4) K/mm3 Baso # (Auto) 0.0 (0.0-0.1) K/mm3 Seg Neutrophils % 81.7 H (40.0-70.0) % Seg Neutrophils # 9.2 H (1.8-7.7) K/mm3 VBG pH (7.320-7.420) Sodium 138 (137-145) mmol/L Potassium 3.2 L (3.6-5.0) mmol/L Chloride 99.4 (98-107) mmol/L Carbon Dioxide 20 L (22-30) mmol/L Anion Gap 22 mmol/L BUN 11 (7-17) mg/dL Creatinine 0.5 L (0.6-1.2) mg/dL Estimated GFR > 60 ml/min BUN/Creatinine Ratio 22 % Glucose 286 H (65-100) mg/dL POC Glucose (70-105) mg/dL Calcium 9.1 (8.4-10.2) mg/dL Total Bilirubin 0.60 (0.1-1.2) mg/dL AST 27 (5-40) units/L ALT 26 (7-56) units/L Alkaline Phosphatase 108 (35-129) units/L Total Protein 7.3 (6.3-8.2) g/dL Albumin 4.1 (3.9-5) g/dL Albumin/Globulin Ratio 1.3 % Lipase 10 L (13-60) units/L HCG, Qual Negative (Negative) Urine Color (Yellow) Urine Turbidity (Clear) Urine pH (5.0-7.0) Ur Specific [place] (1.003-1.030) Urine Protein (Negative) mg/dL Urine Glucose (UA) (Negative) mg/dL Urine Ketones (Negative) mg/dL Urine Blood (Negative) Urine Nitrite (Negative) Urine Bilirubin (Negative) Urine Urobilinogen (<2.0) mg/dL Ur Leukocyte Esterase (Negative) Urine WBC (Auto) (0.0-6.0) /HPF Urine RBC (Auto) (0.0-6.0) /HPF U Epithel Cells (Auto) (0-13.0) /HPF Urine Mucus /HPF 11/20/20 11/20/20 11/20/20 Range/Units 11:20 15:00 15:44 WBC (4.5-11.0) K/mm3 RBC (3.65-5.03) M/mm3 Hgb (10.1-14.3) gm/dl Hct (30.3-42.9) % MCV (79-97) fl MCH (28-32) pg MCHC (30-34) % RDW (13.2-15.2) % Plt Count (140-440) K/mm3 Lymph % (Auto) (13.4-35.0) % [place] % (Auto) (0.0-7.3) % Eos % (Auto) (0.0-4.3) % Baso % (Auto) (0.0-1.8) % Lymph # (Auto) (1.2-5.4) K/mm3 [place] # (Auto) (0.0-0.8) K/mm3 Eos # (Auto) (0.0-0.4) K/mm3 Baso # (Auto) (0.0-0.1) K/mm3 Seg Neutrophils % (40.0-70.0) % Seg Neutrophils # (1.8-7.7) K/mm3 VBG pH 7.478 H (7.320-7.420) Sodium 137 (137-145) mmol/L Potassium 3.8 (3.6-5.0) mmol/L Chloride 103.6 (98-107) mmol/L Carbon Dioxide 19 L (22-30) mmol/L Anion Gap 18 mmol/L BUN 11 (7-17) mg/dL Creatinine 0.4 L (0.6-1.2) mg/dL Estimated GFR > 60 ml/min BUN/Creatinine Ratio 28 % Glucose 260 H (65-100) mg/dL POC Glucose 230 H (70-105) mg/dL Calcium 8.6 (8.4-10.2) mg/dL Total Bilirubin (0.1-1.2) mg/dL AST (5-40) units/L ALT (7-56) units/L Alkaline Phosphatase (35-129) units/L Total Protein (6.3-8.2) g/dL Albumin (3.9-5) g/dL Albumin/Globulin Ratio % Lipase (13-60) units/L HCG, Qual (Negative) Urine Color (Yellow) Urine Turbidity (Clear) Urine pH (5.0-7.0) Ur Specific [place] (1.003-1.030) Urine Protein (Negative) mg/dL Urine Glucose (UA) (Negative) mg/dL Urine Ketones (Negative) mg/dL Urine Blood (Negative) Urine Nitrite (Negative) Urine Bilirubin (Negative) Urine Urobilinogen (<2.0) mg/dL Ur Leukocyte Esterase (Negative) Urine WBC (Auto) (0.0-6.0) /HPF Urine RBC (Auto) (0.0-6.0) /HPF U Epithel Cells (Auto) (0-13.0) /HPF Urine Mucus /HPF 11/20/20 Range/Units Unknown WBC (4.5-11.0) K/mm3 RBC (3.65-5.03) M/mm3 Hgb (10.1-14.3) gm/dl Hct (30.3-42.9) % MCV (79-97) fl MCH (28-32) pg MCHC (30-34) % RDW (13.2-15.2) % Plt Count (140-440) K/mm3 Lymph % (Auto) (13.4-35.0) % [place] % (Auto) (0.0-7.3) % Eos % (Auto) (0.0-4.3) % Baso % (Auto) (0.0-1.8) % Lymph # (Auto) (1.2-5.4) K/mm3 [place] # (Auto) (0.0-0.8) K/mm3 Eos # (Auto) (0.0-0.4) K/mm3 Baso # (Auto) (0.0-0.1) K/mm3 Seg Neutrophils % (40.0-70.0) % Seg Neutrophils # (1.8-7.7) K/mm3 VBG pH (7.320-7.420) Sodium (137-145) mmol/L Potassium (3.6-5.0) mmol/L Chloride (98-107) mmol/L Carbon Dioxide (22-30) mmol/L Anion Gap mmol/L BUN (7-17) mg/dL Creatinine (0.6-1.2) mg/dL Estimated GFR ml/min BUN/Creatinine Ratio % Glucose (65-100) mg/dL POC Glucose (70-105) mg/dL Calcium (8.4-10.2) mg/dL Total Bilirubin (0.1-1.2) mg/dL AST (5-40) units/L ALT (7-56) units/L Alkaline Phosphatase (35-129) units/L Total Protein (6.3-8.2) g/dL Albumin (3.9-5) g/dL Albumin/Globulin Ratio % Lipase (13-60) units/L HCG, Qual (Negative) Urine Color Yellow (Yellow) Urine Turbidity Slightly-cloudy (Clear) Urine pH 6.0 (5.0-7.0) Ur Specific [place] 1.020 (1.003-1.030) Urine Protein 30 mg/dl (Negative) mg/dL Urine Glucose (UA) >=500 (Negative) mg/dL Urine Ketones 80 (Negative) mg/dL Urine Blood Neg (Negative) Urine Nitrite Neg (Negative) Urine Bilirubin Neg (Negative) Urine Urobilinogen < 2.0 (<2.0) mg/dL Ur Leukocyte Esterase Neg (Negative) Urine WBC (Auto) 9.0 H (0.0-6.0) /HPF Urine RBC (Auto) 2.0 (0.0-6.0) /HPF U Epithel Cells (Auto) 4.0 (0-13.0) /HPF Urine Mucus 1+ /HPF - Medical Decision Making This is a 35-year-old female that presents with nausea and vomiting and headache. Patient is stable and was examined by me. There is no abdominal tenderness. Negative signs of symptoms of appendicitis, cholecystitis or acute abdomen. Labs obtained. UA obtained. There is no stiff neck or neck pain. Vital signs are stable. Patient is afebrile. Vital signs are stable prior to discharge. Patient received medical treatment which patient stated symptoms has resolved and subsided. A by mouth challenge has been obtained and patient tolerated well with no nausea vomiting. Patient was also instructed to Follow- up with a primary care doctor in 3-5 days or if symptoms worsen and continue return to emergency room as soon as possible. At time of discharge, the patient does not seem toxic or ill in appearance. No acute signs of distress noted. Patient agrees to discharge treatment plan of care. No further questions noted by the patient. - Differential Diagnosis DKA, migrane headache, gastroenteritis Critical care attestation.: If time is entered above; I have spent that time in minutes in the direct care of this critically ill patient, excluding procedure time. ED Disposition Clinical Impression: Nausea & vomiting Qualifiers: Vomiting type: unspecified Vomiting Intractability: non-intractable Qualified Code(s): R11.2 - Nausea with vomiting, unspecified Headache Qualifiers: Headache type: unspecified Headache chronicity pattern: episodic headache Intractability: not intractable Qualified Code(s): R51.9 - Headache, unspecified Disposition: 01 HOME / SELF CARE / HOMELESS Is pt being admited?: No Does the pt Need Aspirin: No Condition: Stable Instructions: Nausea and Vomiting, Adult Additional Instructions: Follow-up with a primary care doctor in 3-5 days or if symptoms worsen and continue return to emergency room as soon as possible. Prescriptions: Butalb/Acetaminophen/Caffeine [Fioricet 50-300-40 mg CAP] 1 cap PO Q8HR PRN #12 cap PRN Reason: headache Ondansetron [Zofran Odt] 4 mg PO Q12H PRN #12 tab.rapdis PRN Reason: Nausea Referrals: PRIMARY CARE, [Primary Care Provider] - 3-5 Days ZE MILTON MD [Staff Physician] - 3-5 Days Forms: Work/School Release Form(ED) Time of Disposition: 15:54
[2020-11-20 12:01] LABS: Basophils % (Auto) 0.4 % (0.0-1.8); Eosinophils % (Auto) 0.1 % (0.0-4.3); Hematocrit 33.6 % (30.3-42.9); Lymphocytes # (Auto) 1.4 K/mm3 (1.2-5.4); Lymphocytes % (Auto) 12.3 % (13.4-35.0); Mean Corpuscular HGB Conc 33 % (30-34); Mean Corpuscular Volume 79 fl (79-97); Monocytes # (Auto) 0.6 K/mm3 (0.0-0.8); Monocytes % (Auto) 5.5 % (0.0-7.3); Platelet Count 270 K/mm3 (140-440); Red Blood Count 4.24 M/mm3 (3.65-5.03); Red Cell Distribution Width 15.2 % (13.2-15.2)
[2020-11-20 12:12] LABS: Bilirubin,Urine NEG (Negative); Blood,Urine NEG (Negative); Color,Urine Yellow (Yellow); Mucus,Urine 1+ /HPF; Urobilinogen,Urine < 2.0 mg/dL (<2.0)
[2020-11-20 12:18] LABS: Alanine Aminotransferase 26 units/L (7-56); Albumin 4.1 g/dL (3.9-5); Blood Urea Nitrogen 11 mg/dL (7-17); Calcium 9.1 mg/dL (8.4-10.2)
[2020-11-20 12:19] LABS: BUN/Creatinine Ratio 22
[2020-11-20] MEDS ORDERED: POTASSIUM CHLORIDE ER 20 MEQ TAB PO ONE (12:34)
[2020-11-20 15:41] LABS: Blood Urea Nitrogen 11 mg/dL (7-17); Calcium 8.6 mg/dL (8.4-10.2); Hemolysis Index 3
[2020-11-20 15:43] LABS: BUN/Creatinine Ratio 28
[2020-11-20 16:12] VITALS: BP 152/95
== END 2020-11-20 16:10 | disposition home or self-care (01) ==
LOC: ED 11:00
DX: R11.2 Nausea with vomiting, unspecified (principal); R51.9 Headache, unspecified; E10.8 Type 1 diabetes mellitus with unspecified complications
CPT/HCPCS: 36415; 80048; 80053; 81001; 82805; 82962; 83690; 84703; 85025; 87086; 96361; 96374; 96375; 99283; J1200; J2765; J7030

== ENCOUNTER 2020-12-18 07:05 | Inpatient (IN) | payer SELFPAY ==
[2020-12-18] MEDS ORDERED: SODIUM CHLORIDE 0.9% 1000 ML 1,000 ML IV ONE ×2 (07:33→13:32)
[2020-12-18] MEDS ORDERED: ONDANSETRON 4 MG/2 ML INJ IV ONE (07:33)
--- NOTE | 2020-12-18 07:48 | Emergency Department Report ---
ED General Adult HPI - General Chief complaint: Nausea/Vomiting/Diarrhea Stated complaint: VOMITING WEAKNESS PUI?: No Time Seen by Provider: 12/18/20 07:33 Source: patient Mode of arrival: Ambulatory Limitations: No Limitations - History of Present Illness Initial comments: 35 YO AA COMES TO ER WITH N/V FOR 1 DAY. NO DIARRHEA. NO FEVER OR CHILLS. SHE HAS DM1 AND HAS NOT BEEN CHECKING HER BG BUT STATES SHE HAS BEEN TAKING HER I NSULIN. NO CP. NO SOB. PT DENIES FEVER/COUGH/DYSURIA/VAG DISCHARGE -: Gradual, days(s) Consistency: constant Improves with: none Worsens with: none Associated Symptoms: denies other symptoms Treatments Prior to Arrival: none - Related Data Previous Rx's Medication Instructions Recorded Last Taken Type Ascorbic Acid [Vitamin C] 500 mg PO QDAY #20 tablet 06/03/20 Unknown Rx Cholecalciferol (Vitamin D3) 5,000 unit PO DAILY #20 tablet 06/03/20 Unknown Rx [Vitamin D3] Insulin NPH, Human [NovoLIN N] 25 unit SUB-Q BIDDIAB #60 units 06/03/20 Unknown Rx Losartan [Cozaar] 25 mg PO QDAY #30 tablet 06/03/20 Unknown Rx Pantoprazole [Protonix TAB] 40 mg PO QDAC #14 tablet 06/03/20 Unknown Rx Zinc Sulfate 220 mg PO BID #14 capsule 06/03/20 Unknown Rx Allergies Allergy/AdvReac Type Severity Reaction Status Date / Time No Known Allergies Allergy Verified 05/31/20 11:12 ED Review of Systems ROS: Stated complaint: VOMITING WEAKNESS Other details as noted in HPI Comment: All other systems reviewed and negative ED Past Medical Hx - Past Medical History Previous Medical History?: Yes Hx Diabetes: Yes (TYPE 1) Additional medical history: gastroparesis - Surgical History Past Surgical History?: Yes Additional Surgical History: mouth - Family History Family history: no significant - Social History Smoking Status: Never Smoker Substance Use Type: None - Medications Home Medications: Home Medications Medication Instructions Recorded Confirmed Last Taken Type Ascorbic Acid [Vitamin C] 500 mg PO QDAY #20 tablet 06/03/20 Unknown Rx Cholecalciferol (Vitamin D3) 5,000 unit PO DAILY #20 tablet 06/03/20 Unknown Rx [Vitamin D3] Insulin NPH, Human [NovoLIN N] 25 unit SUB-Q BIDDIAB #60 units 06/03/20 Unknown Rx Losartan [Cozaar] 25 mg PO QDAY #30 tablet 06/03/20 Unknown Rx Pantoprazole [Protonix TAB] 40 mg PO QDAC #14 tablet 06/03/20 Unknown Rx Zinc Sulfate 220 mg PO BID #14 capsule 06/03/20 Unknown Rx ED Physical Exam - General Limitations: No Limitations General appearance: alert, in no apparent distress - Head Head exam: Present: atraumatic, normocephalic - Eye Eye exam: Present: normal appearance - ENT ENT exam: Present: mucous membranes moist - Neck Neck exam: Present: normal inspection - Respiratory Respiratory exam: Present: normal lung sounds bilaterally. Absent: respiratory distress - Cardiovascular Cardiovascular Exam: Present: regular rate, normal rhythm. Absent: systolic mu rmur, diastolic murmur, rubs, gallop - GI/Abdominal GI/Abdominal exam: Present: soft, normal bowel sounds - Extremities Exam Extremities exam: Present: normal inspection - Back Exam Back exam: Present: normal inspection - Neurological Exam Neurological exam: Present: alert, oriented X3 - Psychiatric Psychiatric exam: Present: normal affect, normal mood - Skin Skin exam: Present: warm, dry, intact, normal color. Absent: rash ED Course Vital Signs 12/18/20 12/18/20 12/18/20 07:30 12:35 12:46 Temperature 97.2 F L Pulse Rate 98 H Respiratory 16 Rate Blood Pressure 123/61 123/61 Blood Pressure 117/67 [Right] O2 Sat by Pulse 100 100 Oximetry 12/18/20 12/18/20 13:09 13:14 Temperature Pulse Rate 106 H Respiratory Rate Blood Pressure Blood Pressure [Right] O2 Sat by Pulse 100 Oximetry ED Medical Decision Making - Lab Data Result diagrams: 12/18/20 08:00 12/18/20 12:36 - Radiology Data Radiology results: report reviewed, image reviewed - Medical Decision Making Labs 12/18/20 12/18/20 12/18/20 08:00 08:00 08:46 WBC 12.0 H RBC 4.94 Hgb 12.7 Hct 40.4 MCV 82 MCH 26 L MCHC 32 RDW 15.4 H Plt Count 332 Lymph % (Auto) 7.8 L [place] % (Auto) 4.0 Eos % (Auto) 0.0 Baso % (Auto) 0.2 Lymph # (Auto) 0.9 L [place] # (Auto) 0.5 Eos # (Auto) 0.0 Baso # (Auto) 0.0 Seg Neutrophils % 88.0 H Seg Neutrophils # 10.5 H Sodium 138 Potassium 4.3 Chloride 97.0 L Carbon Dioxide 13 L Anion Gap 32 BUN 20 H Creatinine 0.7 Estimated GFR > 60 BUN/Creatinine Ratio 29 Glucose 460 H POC Glucose 387 H Calcium 9.5 Total Bilirubin 0.60 AST 22 ALT 16 Alkaline Phosphatase 130 H Total Protein 7.9 Albumin 4.7 Albumin/Globulin Ratio 1.5 Lipase 8 L Vital Signs 12/18/20 07:30 Temperature 97.2 F L Pulse Rate 98 H Respiratory 16 Rate Blood Pressure 117/67 [Right] O2 Sat by Pulse 100 Oximetry BG NOTED- INSULIN IV ORDERED X 2 OCCASIONS RN ASKED TO CONDUCT Q1H ACCUCHECKS WHICH THEY WERE UNABLE TO DO. PH NOTED TO BE ACIDOTIC INSULIN DRIP ORDERED NS X 2L ORDERED DR CORBIN AWARE OF INSULIN GTT IN REASSESSMENT AREA. PT ULTIMATELY MOVED TO ROOM 11 IN MAIN ED. [address] LOPEZ- WILL ADMIT FOR DKA 1400 [facility] [place]ONED- DR LACY WILL RETURN CALL 1455 [facility] [place] PHONED- NO ANSWER; WILL PAGE FOR ADMIT FOR DKA - Differential Diagnosis HHNK/DKA Critical care attestation.: If time is entered above; I have spent that time in minutes in the direct care of this critically ill patient, excluding procedure time. ED Disposition Clinical Impression: DKA (diabetic ketoacidoses) Disposition: 02 SHORT [facility] Is pt being admited?: Yes Does the pt Need Aspirin: No Condition: Stable Instructions: Diabetic Ketoacidosis (ED) Referrals: PRIMARY CARE, [Primary Care Provider] - 3-5 Days Time of Disposition: 13:58
[2020-12-18 08:12] LABS: Basophils % (Auto) 0.2 % (0.0-1.8); Hematocrit 40.4 % (30.3-42.9); Hemoglobin 12.7 gm/dl (10.1-14.3); Lymphocytes # (Auto) 0.9 K/mm3 (1.2-5.4); Lymphocytes % (Auto) 7.8 % (13.4-35.0); Mean Corpuscular HGB Conc 32 % (30-34); Mean Corpuscular Volume 82 fl (79-97); Monocytes # (Auto) 0.5 K/mm3 (0.0-0.8); Platelet Count 332 K/mm3 (140-440); Red Blood Count 4.94 M/mm3 (3.65-5.03); Red Cell Distribution Width 15.4 % (13.2-15.2)
[2020-12-18 08:34] LABS: Alanine Aminotransferase 16 units/L (7-56); Albumin 4.7 g/dL (3.9-5); Blood Urea Nitrogen 20 mg/dL (7-17); Calcium 9.5 mg/dL (8.4-10.2); Hemolysis Index 3
[2020-12-18 08:36] LABS: BUN/Creatinine Ratio 29
[2020-12-18] MEDS ORDERED: INSULIN REGULAR, HUMAN 100 UNITS/1 ML IV ONE ×2 (08:36→18:19)
--- NOTE | 2020-12-18 09:57 | XRay Report ---
CHEST 2 VIEWS INDICATION / CLINICAL INFORMATION: weakness. COMPARISON: 05/30/2020 FINDINGS: SUPPORT DEVICES: None. HEART / MEDIASTINUM: No significant abnormality. LUNGS / PLEURA: No significant pulmonary or pleural abnormality. No pneumothorax. ADDITIONAL FINDINGS: No significant additional findings. IMPRESSION: 1. No acute findings. Signer Name: Curry Mcgregor DO Signed: 12/18/2020 9:52 AM Workstation Name: [id number]
[2020-12-18] MEDS ORDERED: DEXTROSE 50% IN WATER (25GM) 50 ML SYRINGE IV PRN (10:17)
[2020-12-18] MEDS ORDERED: INSULIN REGULAR, HUMAN 100 UNITS in SODIUM CHLORIDE 0.9% 99 ML IV SCH (11:00)
[2020-12-18 11:36] LABS: Blood Urea Nitrogen 21 mg/dL (7-17); Calcium 8.9 mg/dL (8.4-10.2); Hemolysis Index 53
[2020-12-18 11:37] LABS: BUN/Creatinine Ratio 35
[2020-12-18 13:09] LABS: Blood Urea Nitrogen 22 mg/dL (7-17); Hemolysis Index 18
[2020-12-18 13:10] LABS: BUN/Creatinine Ratio 37
--- NOTE | 2020-12-18 13:13 | Event Note ---
Date of service: 12/18/20 Face to Face: For this encounter I have reviewed the PA/PATHOLOGY SECRETARY/TRANSCRIPTIONIST documentation, treatment plan, medical decision making, and I had face to face time with this patient. Patient presented with nausea and vomiting. She had had GI upset and reported dehydration. She was a known diabetic. She did not have chest pain. There is no hematemesis. On exam, she was clinically dehydrated with dry mucous membranes. Patient was not hypotensive. She had some generalized abdominal tenderness without rebound or guarding. There is no peritoneal finding. Labs have been noted. Patient was started on insulin drip for DKA. Patient had presented with GI symptoms in the setting of diabetes. She was found to have DKA. She was admitted for this.
[2020-12-18] MEDS ORDERED: SODIUM CHLORIDE 0.9% 1000 ML 3,000 ML IV ONE (15:14)
[2020-12-18] MEDS ORDERED: SODIUM BICARB 8.4% 50 MEQ/50 ML SYRINGE IV ONE (15:19)
[2020-12-18] MEDS ORDERED: INSULIN REGULAR, HUMAN 100 UNITS/1 ML IV SCH (15:30)
--- NOTE | 2020-12-18 15:53 | Event Note ---
Date: 12/18/20 35-year-old female presents ED for evaluation. Patient found to have migraine headache, uncontrolled diabetes mellitus at time of evaluation. Patient treated with IV fluid resuscitation therapy and insulin therapy with resolution of symptoms and normalization of of serum glucose. Patient medically optimized and back to usual state of health without evidence of diabetic ketoacidosis. Patient seen and evaluated prior to discharge no significant physical exam findings. Patient medically optimized back to usual state of health. Patient discharged home instructed follow-up primary care physician within 3 to 5 days with blood glucose log. - General Limitations: No Limitations General appearance: alert, in no apparent distress - Head Head exam: Present: atraumatic, normocephalic - Eye Eye exam: Present: normal appearance - ENT ENT exam: Present: mucous membranes moist - Neck Neck exam: Present: normal inspection - Respiratory Respiratory exam: Present: normal lung sounds bilaterally. Absent: respiratory distress - Cardiovascular Cardiovascular Exam: Present: regular rate, normal rhythm. Absent: systolic murmur, diastolic murmur, rubs, gallop - GI/Abdominal GI/Abdominal exam: Present: soft, normal bowel sounds - Extremities Exam Extremities exam: Present: normal inspection - Back Exam Back exam: Present: normal inspection - Neurological Exam Neurological exam: Present: alert, oriented X3 - Psychiatric Psychiatric exam: Present: normal affect, normal mood - Skin Skin exam: Present: warm, dry, intact, normal color. Absent: rash
[2020-12-18 16:02] LABS: Blood Urea Nitrogen 23 mg/dL (7-17); Calcium 8.8 mg/dL (8.4-10.2); Hemolysis Index 5
[2020-12-18 16:03] LABS: BUN/Creatinine Ratio 33
[2020-12-18] MEDS ORDERED: SODIUM CHLORIDE 0.9% 1000 ML 2,000 ML IV ONE (18:18)
[2020-12-18 19:22] LABS: Blood Urea Nitrogen 19 mg/dL (7-17); Calcium 8.1 mg/dL (8.4-10.2); Hemolysis Index 5
[2020-12-18 19:32] LABS: BUN/Creatinine Ratio 32
[2020-12-18 20:42] LABS: Blood Urea Nitrogen 16 mg/dL (7-17); Calcium 7.8 mg/dL (8.4-10.2); Hemolysis Index 11
[2020-12-18 20:54] LABS: BUN/Creatinine Ratio 27
[2020-12-18] MEDS ORDERED: D5W/0.45% NACL 1,000 ML IV SCH (22:00)
[2020-12-18] MEDS ORDERED: MAGNESIUM HYDROXIDE (MOM) ORAL LIQD UDC PO PRN (23:13)
[2020-12-18] MEDS ORDERED: ONDANSETRON 4 MG/2 ML INJ IV PRN (23:13)
[2020-12-18] MEDS ORDERED: MORPHINE 4 MG/1 ML INJ IV PRN (23:13)
[2020-12-18] MEDS ORDERED: ACETAMINOPHEN 325 MG TAB PO PRN (23:13)
[2020-12-18] MEDS ORDERED: MORPHINE 2 MG/1 ML INJ IV PRN (23:13)
--- NOTE | 2020-12-18 23:21 | History and Physical Report ---
History of Present Illness Date of examination: 12/18/20 Date of admission: 12/18/20 Chief complaint: Nausea and vomiting History of present illness: 35-year-old -[place] female with known history of diabetes mellitus seen in the emergency room today complaining of nausea and vomiting for 1 day. She also has known history of gastroparesis. She denies any diarrhea, no fever or chills, no abdominal pain, no chest pain or shortness of breath, no hematuria or dysuria. She denies any excessive thirst or excessive urination. She indicates she has been compliant with medications for diabetes. She was evaluated in the emergency room earlier today and found to be in DKA. However she was said to be discharged home later in the evening. Attention was called to labs and patient's general condition as patient still has an elevated anion gap and appears generally weak.She has been having persistent nausea and vomiting. Decision was made to discontinue discharge as planned. Patient is still on insulin drip and IV fluid. Past History Past Medical History: diabetes, other (Gastroparesis) Past Surgical History: Other (Mouth surgery in the past) Social history: no significant social history Family history: no significant family history Medications and Allergies Allergies Allergy/AdvReac Type Severity Reaction Status Date / Time No Known Allergies Allergy Verified 05/31/20 11:12 Home Medications Medication Instructions Recorded Confirmed Last Taken Type Ascorbic Acid [Vitamin C] 500 mg PO QDAY #20 tablet 06/03/20 Unknown Rx Cholecalciferol (Vitamin D3) 5,000 unit PO DAILY #20 tablet 06/03/20 Unknown Rx [Vitamin D3] Insulin NPH, Human [NovoLIN N] 25 unit SUB-Q BIDDIAB #60 units 06/03/20 Unknown Rx Losartan [Cozaar] 25 mg PO QDAY #30 tablet 06/03/20 Unknown Rx Pantoprazole [Protonix TAB] 40 mg PO QDAC #14 tablet 06/03/20 Unknown Rx Zinc Sulfate 220 mg PO BID #14 capsule 06/03/20 Unknown Rx Ondansetron [Zofran Odt] 4 mg PO Q8HR #14 tab.rapdis 12/18/20 Unknown Rx SUMAtriptan succinate [SUMAtriptan 100 mg PO DAILY #9 tablet 12/18/20 Unknown Rx Succinate] Active Meds: Active Medications Acetaminophen (Acetaminophen 325 Mg Tab) 650 mg PO Q6H PRN PRN Reason: Pain MILD(1-3)/Fever >100.5/JUAREZ Dextrose (Dextrose 50% In Water (25gm) 50 Ml Syringe) 0 ml IV Q30MIN PRN; Protocol PRN Reason: Hypoglycemia Stop: 12/24/20 18:00 Insulin Human Regular 100 (units/ Sodium Chloride) 100 mls @ 1 mls/hr IV TITR NELLY; Protocol Last Titration: 12/18/20 23:13 Dose: 1.5 units/hr, 1.5 mls/hr Documented by: Dextrose/Sodium Chloride (D5/0.45ns) 1,000 mls @ 125 mls/hr IV DIRECT NELLY Last Admin: 12/18/20 21:30 Dose: 125 mls/hr Documented by: Potassium Chloride/Dextrose/Sod Cl (D5w/0.45% Nacl/Kcl 20 Meq) 20 meq in 1,000 mls @ 125 mls/hr IV DIRECT NELLY Magnesium Hydroxide (Magnesium Hydroxide (Mom) Oral Liqd Udc) 30 ml PO Q4H PRN PRN Reason: Constipation Morphine Sulfate (Morphine 2 Mg/1 Ml Inj) 2 mg IV Q4H PRN PRN Reason: Pain, Moderate (4-6) Morphine Sulfate (Morphine 4 Mg/1 Ml Inj) 4 mg IV Q4H PRN PRN Reason: Pain , Severe (7-10) Ondansetron HCl (Ondansetron 4 Mg/2 Ml Inj) 4 mg IV Q8H PRN PRN Reason: Nausea And Vomiting Sodium Chloride (Sodium Chloride 0.9% 10 Ml Flush Syringe) 10 ml IV BID NELLY Sodium Chloride (Sodium Chloride 0.9% 10 Ml Flush Syringe) 10 ml IV PRN PRN PRN Reason: LINE FLUSH Review of Systems Constitutional: fatigue, no fever, no chills Cardiovascular: no chest pain, no palpitations Respiratory: no cough, no shortness of breath Gastrointestinal: nausea, vomiting, no abdominal pain, no diarrhea Genitourinary Female: no pelvic pain, no flank pain, no dysuria, no hematuria Musculoskeletal: no neck pain, no low back pain Integumentary: no rash, no pruritis Neurological: no headaches, no confusion Psychiatric: no anxiety, no depression Endocrine: no polyphagia, no polydipsia, no polyuria, no nocturia Exam - Constitutional Vitals: Temp Pulse Resp BP Pulse Ox 98.0 F 106 H 26 H 111/64 99 12/18/20 21:56 12/18/20 21:56 12/18/20 21:56 12/18/20 22:46 12/18/20 22:46 General appearance: Present: no acute distress, well-nourished, other (Ill looking) - EENT Eyes: Present: PERRL, EOM intact. Absent: scleral icterus ENT: hearing intact, clear oral mucosa, dentition normal - Neck Neck: Present: supple, normal ROM - Respiratory Respiratory effort: normal Respiratory: bilateral: CTA - Cardiovascular Rhythm: regular Heart Sounds: Present: S1 & S2. Absent: gallop, systolic murmur, diastolic murmur, rub, click - Extremities Extremities: no ischemia, pulses intact, pulses symmetrical, No edema, normal temperature, normal color, Full ROM Peripheral Pulses: within normal limits - Abdominal General gastrointestinal: Present: soft, non-tender, non-distended, normal bowel sounds. Absent: mass - Integumentary Integumentary: Present: clear, warm, dry. Absent: rash - Musculoskeletal Musculoskeletal: strength equal bilaterally, right sided weakness, left sided weakness - Psychiatric Psychiatric: appropriate mood/affect, intact judgment & insight, memory intact, cooperative - Neurologic Neurologic: CNII-XII intact, no focal deficits, moves all extremities Results - Labs CBC & Chem 7: 12/18/20 08:00 12/19/20 03:06 Labs: Abnormal lab results 12/18/20 12/18/20 12/18/20 Range/Units 08:00 08:00 08:46 WBC 12.0 H (4.5-11.0) K/mm3 MCH 26 L (28-32) pg RDW 15.4 H (13.2-15.2) % Lymph % (Auto) 7.8 L (13.4-35.0) % Lymph # (Auto) 0.9 L (1.2-5.4) K/mm3 Seg Neutrophils % 88.0 H (40.0-70.0) % Seg Neutrophils # 10.5 H (1.8-7.7) K/mm3 VBG pH (7.320-7.420) Sodium (137-145) mmol/L Chloride 97.0 L (98-107) mmol/L Carbon Dioxide 13 L (22-30) mmol/L BUN 20 H (7-17) mg/dL Glucose 460 H (65-100) mg/dL POC Glucose 387 H (70-105) mg/dL Calcium (8.4-10.2) mg/dL Alkaline Phosphatase 130 H (35-129) units/L Lipase 8 L (13-60) units/L 12/18/20 12/18/20 12/18/20 Range/Units 08:52 11:02 12:36 WBC (4.5-11.0) K/mm3 MCH (28-32) pg RDW (13.2-15.2) % Lymph % (Auto) (13.4-35.0) % Lymph # (Auto) (1.2-5.4) K/mm3 Seg Neutrophils % (40.0-70.0) % Seg Neutrophils # (1.8-7.7) K/mm3 VBG pH 7.237 L (7.320-7.420) Sodium (137-145) mmol/L Chloride (98-107) mmol/L Carbon Dioxide 11 L 11 L (22-30) mmol/L BUN 21 H 22 H (7-17) mg/dL Glucose 412 H 421 H (65-100) mg/dL POC Glucose (70-105) mg/dL Calcium (8.4-10.2) mg/dL Alkaline Phosphatase (35-129) units/L Lipase (13-60) units/L 12/18/20 12/18/20 12/18/20 Range/Units 13:09 14:05 15:14 WBC (4.5-11.0) K/mm3 MCH (28-32) pg RDW (13.2-15.2) % Lymph % (Auto) (13.4-35.0) % Lymph # (Auto) (1.2-5.4) K/mm3 Seg Neutrophils % (40.0-70.0) % Seg Neutrophils # (1.8-7.7) K/mm3 VBG pH (7.320-7.420) Sodium (137-145) mmol/L Chloride 108.0 H (98-107) mmol/L Carbon Dioxide 11 L (22-30) mmol/L BUN 23 H (7-17) mg/dL Glucose 303 H (65-100) mg/dL POC Glucose 383 H 343 H (70-105) mg/dL Calcium (8.4-10.2) mg/dL Alkaline Phosphatase (35-129) units/L Lipase (13-60) units/L 12/18/20 12/18/20 12/18/20 Range/Units 15:18 16:06 17:06 WBC (4.5-11.0) K/mm3 MCH (28-32) pg RDW (13.2-15.2) % Lymph % (Auto) (13.4-35.0) % Lymph # (Auto) (1.2-5.4) K/mm3 Seg Neutrophils % (40.0-70.0) % Seg Neutrophils # (1.8-7.7) K/mm3 VBG pH (7.320-7.420) Sodium (137-145) mmol/L Chloride (98-107) mmol/L Carbon Dioxide (22-30) mmol/L BUN (7-17) mg/dL Glucose (65-100) mg/dL POC Glucose 249 H 220 H 158 H (70-105) mg/dL Calcium (8.4-10.2) mg/dL Alkaline Phosphatase (35-129) units/L Lipase (13-60) units/L 12/18/20 12/18/20 12/18/20 Range/Units 18:13 18:44 20:16 WBC (4.5-11.0) K/mm3 MCH (28-32) pg RDW (13.2-15.2) % Lymph % (Auto) (13.4-35.0) % Lymph # (Auto) (1.2-5.4) K/mm3 Seg Neutrophils % (40.0-70.0) % Seg Neutrophils # (1.8-7.7) K/mm3 VBG pH (7.320-7.420) Sodium 147 H (137-145) mmol/L Chloride 113.0 H 116.8 H (98-107) mmol/L Carbon Dioxide 11 L 13 L (22-30) mmol/L BUN 19 H (7-17) mg/dL Glucose 239 H 178 H (65-100) mg/dL POC Glucose 208 H (70-105) mg/dL Calcium 8.1 L 7.8 L (8.4-10.2) mg/dL Alkaline Phosphatase (35-129) units/L Lipase (13-60) units/L 12/18/20 12/18/20 12/18/20 Range/Units 21:10 22:06 23:12 WBC (4.5-11.0) K/mm3 MCH (28-32) pg RDW (13.2-15.2) % Lymph % (Auto) (13.4-35.0) % Lymph # (Auto) (1.2-5.4) K/mm3 Seg Neutrophils % (40.0-70.0) % Seg Neutrophils # (1.8-7.7) K/mm3 VBG pH (7.320-7.420) Sodium (137-145) mmol/L Chloride (98-107) mmol/L Carbon Dioxide (22-30) mmol/L BUN (7-17) mg/dL Glucose (65-100) mg/dL POC Glucose 113 H 175 H 121 H (70-105) mg/dL Calcium (8.4-10.2) mg/dL Alkaline Phosphatase (35-129) units/L Lipase (13-60) units/L Assessment and Plan - Patient Problems (1) DKA (diabetic ketoacidoses) Current Visit: Yes Status: Acute Plan to address problem: Patient admitted to the intensive care unit continue on IV fluid and insulin drip. We will monitor Accu-Cheks q. hourly. (2) DVT prophylaxis Current Visit: No Status: Acute Plan to address problem: Patient placed on subcutaneous heparin. (3) Full code status Current Visit: Yes Status: Acute Plan to address problem: Patient is full code.
[2020-12-19] MEDS: D5W/0.45% NACL/KCL 20 MEQ 20 MEQ/1,000 ML BAG IV SCH ×2 (00:20→08:58)
[2020-12-19] MEDS ORDERED: PANTOPRAZOLE 40 MG INJ IV ONE (01:59)
[2020-12-19 03:32] LABS: Blood Urea Nitrogen 12 mg/dL (7-17); Calcium 7.9 mg/dL (8.4-10.2); Hemolysis Index 2
[2020-12-19 03:35] LABS: BUN/Creatinine Ratio 24
[2020-12-19 03:38] LABS: Bilirubin,Urine NEG (Negative); Blood,Urine LG (Negative); Color,Urine Red (Yellow); Mucus,Urine FEW /HPF; Urobilinogen,Urine < 2.0 mg/dL (<2.0)
[2020-12-19] MEDS ORDERED: METOCLOPRAMIDE 10 MG/2 ML INJ IV ONE (05:14)
[2020-12-19] MEDS: HEPARIN 5,000 UNIT/1 ML VIAL SUB-Q SCH ×2 (06:39→14:04)
--- NOTE | 2020-12-19 08:36 | Consultation ---
History of Present Illness Consult date: 12/19/20 History of present illness: 35-year-old -Citizen Of [place] female with known history of diabetes mellitus seen in the emergency room today complaining of nausea and vomiting for 1 day. She also has known history of gastroparesis. She denies any diarrhea, no fever or chills, no abdominal pain, no chest pain or shortness of breath, no hematuria or dysuria. She denies any excessive thirst or excessive urination. She indicates she has been compliant with medications for diabetes. She was evaluated in the emergency room earlier today and found to be in DKA. However she was said to be discharged home later in the evening. Attention was called to labs and patient's general condition as patient still has an elevated anion gap and appears generally weak.She has been having persistent nausea and vomiting. Decision was made to discontinue discharge as planned. Patient is still on insulin drip and IV fluid. Past History Past Medical History: diabetes, other (Gastroparesis) Past Surgical History: Other (Mouth surgery in the past) Social history: no significant social history Family history: no significant family history Past History Past Medical History: diabetes, other (Gastroparesis) Past Surgical History: Other (Mouth surgery in the past) Social history: no significant social history Family history: no significant family history Medications and Allergies Allergies Allergy/AdvReac Type Severity Reaction Status Date / Time No Known Allergies Allergy Verified 05/31/20 11:12 Home Medications Medication Instructions Recorded Confirmed Last Taken Type Ascorbic Acid [Vitamin C] 500 mg PO QDAY #20 tablet 06/03/20 Unknown Rx Cholecalciferol (Vitamin D3) 5,000 unit PO DAILY #20 tablet 06/03/20 Unknown Rx [Vitamin D3] Insulin NPH, Human [NovoLIN N] 25 unit SUB-Q BIDDIAB #60 units 06/03/20 Unknown Rx Losartan [Cozaar] 25 mg PO QDAY #30 tablet 06/03/20 Unknown Rx Pantoprazole [Protonix TAB] 40 mg PO QDAC #14 tablet 06/03/20 Unknown Rx Zinc Sulfate 220 mg PO BID #14 capsule 06/03/20 Unknown Rx Ondansetron [Zofran Odt] 4 mg PO Q8HR #14 tab.rapdis 12/18/20 Unknown Rx SUMAtriptan succinate [SUMAtriptan 100 mg PO DAILY #9 tablet 12/18/20 Unknown Rx Succinate] Active Meds: Active Medications Acetaminophen (Acetaminophen 325 Mg Tab) 650 mg PO Q6H PRN PRN Reason: Pain MILD(1-3)/Fever >100.5/JUAREZ Dextrose (Dextrose 50% In Water (25gm) 50 Ml Syringe) 0 ml IV Q30MIN PRN; Protocol PRN Reason: Hypoglycemia Stop: 12/24/20 18:00 Heparin Sodium (Porcine) (Heparin 5,000 Unit/1 Ml Vial) 5,000 unit SUB-Q Q8HR NELLY Last Admin: 12/19/20 06:39 Dose: 5,000 unit Documented by: Insulin Human Regular 100 (units/ Sodium Chloride) 100 mls @ 1 mls/hr IV TITR NELLY; Protocol Last Titration: 12/19/20 07:47 Dose: 2 units/hr, 2 mls/hr Documented by: Potassium Chloride/Dextrose/Sod Cl (D5w/0.45% Nacl/Kcl 20 Meq) 20 meq in 1,000 mls @ 125 mls/hr IV DIRECT NELLY Last Admin: 12/19/20 00:20 Dose: 125 mls/hr Documented by: Magnesium Hydroxide (Magnesium Hydroxide (Mom) Oral Liqd Udc) 30 ml PO Q4H PRN PRN Reason: Constipation Morphine Sulfate (Morphine 2 Mg/1 Ml Inj) 2 mg IV Q4H PRN PRN Reason: Pain, Moderate (4-6) Morphine Sulfate (Morphine 4 Mg/1 Ml Inj) 4 mg IV Q4H PRN PRN Reason: Pain , Severe (7-10) Ondansetron HCl (Ondansetron 4 Mg/2 Ml Inj) 4 mg IV Q8H PRN PRN Reason: Nausea And Vomiting Last Admin: 12/19/20 03:14 Dose: 4 mg Documented by: Sodium Chloride (Sodium Chloride 0.9% 10 Ml Flush Syringe) 10 ml IV BID NELLY Sodium Chloride (Sodium Chloride 0.9% 10 Ml Flush Syringe) 10 ml IV PRN PRN PRN Reason: LINE FLUSH Physical Examination Vital signs: Vital Signs Temp Pulse Resp BP Pulse Ox 97.2 F L 98 H 16 117/67 100 12/18/20 07:30 12/18/20 07:30 12/18/20 07:30 12/18/20 07:30 12/18/20 07:30 Results - Laboratory Findings CBC and BMP: 12/18/20 08:00 12/19/20 10:53 Abnormal lab findings: Abnormal Labs 12/18/20 12/18/20 12/18/20 08:00 08:00 08:46 WBC 12.0 H MCH 26 L RDW 15.4 H Lymph % (Auto) 7.8 L Lymph # (Auto) 0.9 L Seg Neutrophils % 88.0 H Seg Neutrophils # 10.5 H VBG pH Sodium Chloride 97.0 L Carbon Dioxide 13 L BUN 20 H Creatinine Glucose 460 H POC Glucose 387 H Calcium Phosphorus Alkaline Phosphatase 130 H Lipase 8 L Urine WBC (Auto) U Epithel Cells (Auto) 12/18/20 12/18/20 12/18/20 08:52 11:02 12:36 WBC MCH RDW Lymph % (Auto) Lymph # (Auto) Seg Neutrophils % Seg Neutrophils # VBG pH 7.237 L Sodium Chloride Carbon Dioxide 11 L 11 L BUN 21 H 22 H Creatinine Glucose 412 H 421 H POC Glucose Calcium Phosphorus Alkaline Phosphatase Lipase Urine WBC (Auto) U Epithel Cells (Auto) 12/18/20 12/18/20 12/18/20 13:09 14:05 15:14 WBC MCH RDW Lymph % (Auto) Lymph # (Auto) Seg Neutrophils % Seg Neutrophils # VBG pH Sodium Chloride 108.0 H Carbon Dioxide 11 L BUN 23 H Creatinine Glucose 303 H POC Glucose 383 H 343 H Calcium Phosphorus Alkaline Phosphatase Lipase Urine WBC (Auto) U Epithel Cells (Auto) 12/18/20 12/18/20 12/18/20 15:18 16:06 17:06 WBC MCH RDW Lymph % (Auto) Lymph # (Auto) Seg Neutrophils % Seg Neutrophils # VBG pH Sodium Chloride Carbon Dioxide BUN Creatinine Glucose POC Glucose 249 H 220 H 158 H Calcium Phosphorus Alkaline Phosphatase Lipase Urine WBC (Auto) U Epithel Cells (Auto) 12/18/20 12/18/20 12/18/20 18:13 18:44 20:16 WBC MCH RDW Lymph % (Auto) Lymph # (Auto) Seg Neutrophils % Seg Neutrophils # VBG pH Sodium 147 H Chloride 113.0 H 116.8 H Carbon Dioxide 11 L 13 L BUN 19 H Creatinine Glucose 239 H 178 H POC Glucose 208 H Calcium 8.1 L 7.8 L Phosphorus Alkaline Phosphatase Lipase Urine WBC (Auto) U Epithel Cells (Auto) 12/18/20 12/18/20 12/18/20 20:16 21:10 22:06 WBC MCH RDW Lymph % (Auto) Lymph # (Auto) Seg Neutrophils % Seg Neutrophils # VBG pH Sodium Chloride Carbon Dioxide BUN Creatinine Glucose POC Glucose 113 H 175 H Calcium Phosphorus 2.20 L D Alkaline Phosphatase Lipase Urine WBC (Auto) U Epithel Cells (Auto) 12/18/20 12/19/20 12/19/20 23:12 00:15 01:14 WBC MCH RDW Lymph % (Auto) Lymph # (Auto) Seg Neutrophils % Seg Neutrophils # VBG pH Sodium Chloride Carbon Dioxide BUN Creatinine Glucose POC Glucose 121 H 132 H 148 H Calcium Phosphorus Alkaline Phosphatase Lipase Urine WBC (Auto) U Epithel Cells (Auto) 12/19/20 12/19/20 12/19/20 02:13 03:06 03:08 WBC MCH RDW Lymph % (Auto) Lymph # (Auto) Seg Neutrophils % Seg Neutrophils # VBG pH Sodium Chloride 115.3 H Carbon Dioxide 15 L BUN Creatinine 0.5 L Glucose 207 H POC Glucose 152 H 195 H Calcium 7.9 L Phosphorus Alkaline Phosphatase Lipase Urine WBC (Auto) U Epithel Cells (Auto) 12/19/20 12/19/20 12/19/20 04:31 05:34 06:37 WBC MCH RDW Lymph % (Auto) Lymph # (Auto) Seg Neutrophils % Seg Neutrophils # VBG pH Sodium Chloride Carbon Dioxide BUN Creatinine Glucose POC Glucose 185 H 154 H 171 H Calcium Phosphorus Alkaline Phosphatase Lipase Urine WBC (Auto) U Epithel Cells (Auto) 12/19/20 12/19/20 07:42 Unknown WBC MCH RDW Lymph % (Auto) Lymph # (Auto) Seg Neutrophils % Seg Neutrophils # VBG pH Sodium Chloride Carbon Dioxide BUN Creatinine Glucose POC Glucose 137 H Calcium Phosphorus Alkaline Phosphatase Lipase Urine WBC (Auto) 32.0 H U Epithel Cells (Auto) 14.0 H - Diagnostic Findings Chest x-ray: report reviewed, image reviewed Additional studies: CHEST 2 VIEWS 12/18/20 INDICATION / CLINICAL INFORMATION: weakness. COMPARISON: 05/30/2020 FINDINGS: SUPPORT DEVICES: None. HEART / MEDIASTINUM: No significant abnormality. LUNGS / PLEURA: No significant pulmonary or pleural abnormality. No pneumothorax. ADDITIONAL FINDINGS: No significant additional findings. IMPRESSION: 1. No acute findings. Assessment and Plan - Patient Problems (1) DKA (diabetic ketoacidoses) Current Visit: Yes Status: Acute (2) Uncontrolled diabetes mellitus Current Visit: Yes Status: Acute (3) COVID-19 Current Visit: No Status: Acute (4) Dehydration Current Visit: No Status: Acute (5) Hypertension Current Visit: No Status: Acute (6) Suspected 2019-nCoV infection Current Visit: No Status: Acute
--- NOTE | 2020-12-19 11:04 | Progress Note ---
Assessment and Plan Assessment and plan: DKA. Accelerated hypertension 12/19/2020. DKA has resolved. Anion gap is closed. Patient will be transition to her home insulin regimen of 70/30 insulin 30 units twice daily. Patient requests dietitian consultation. Patient will be transferred to the floor. Patient also noted with accelerated hypertension and will be started on labetalol twice daily History Interval history: No new issues overnight Hospitalist Physical - Constitutional Vitals: Temp Pulse Resp BP Pulse Ox 98.0 F 100 H 28 H 124/74 99 12/19/20 04:39 12/19/20 06:41 12/19/20 09:01 12/19/20 06:41 12/19/20 09:01 General appearance: Present: no acute distress, well-nourished, other (Ill looking) - EENT Eyes: Present: PERRL, EOM intact ENT: hearing intact, clear oral mucosa, dentition normal - Neck Neck: Present: supple, normal ROM - Respiratory Respiratory effort: normal Respiratory: bilateral: CTA - Cardiovascular Rhythm: regular Heart Sounds: Present: S1 & S2. Absent: gallop, rub - Extremities Extremities: no ischemia, No edema, Full ROM - Abdominal General gastrointestinal: soft, non-tender, non-distended, normal bowel sounds - Integumentary Integumentary: Present: clear, warm, dry - Neurologic Neurologic: CNII-XII intact, moves all extremities Results - Labs CBC & Chem 7: 12/18/20 08:00 12/19/20 03:06 Labs: Laboratory Last Values WBC 12.0 K/mm3 (4.5-11.0) H 12/18/20 08:00 RBC 4.94 M/mm3 (3.65-5.03) 12/18/20 08:00 Hgb 12.7 gm/dl (10.1-14.3) 12/18/20 08:00 Hct 40.4 % (30.3-42.9) 12/18/20 08:00 MCV 82 fl (79-97) 12/18/20 08:00 MCH 26 pg (28-32) L 12/18/20 08:00 MCHC 32 % (30-34) 12/18/20 08:00 RDW 15.4 % (13.2-15.2) H 12/18/20 08:00 Plt Count 332 K/mm3 (140-440) 12/18/20 08:00 Lymph % (Auto) 7.8 % (13.4-35.0) L 12/18/20 08:00 [place] % (Auto) 4.0 % (0.0-7.3) 12/18/20 08:00 Eos % (Auto) 0.0 % (0.0-4.3) 12/18/20 08:00 Baso % (Auto) 0.2 % (0.0-1.8) 12/18/20 08:00 Lymph # (Auto) 0.9 K/mm3 (1.2-5.4) L 12/18/20 08:00 [place] # (Auto) 0.5 K/mm3 (0.0-0.8) 12/18/20 08:00 Eos # (Auto) 0.0 K/mm3 (0.0-0.4) 12/18/20 08:00 Baso # (Auto) 0.0 K/mm3 (0.0-0.1) 12/18/20 08:00 Seg Neutrophils % 88.0 % (40.0-70.0) H 12/18/20 08:00 Seg Neutrophils # 10.5 K/mm3 (1.8-7.7) H 12/18/20 08:00 VBG pH 7.237 (7.320-7.420) L 12/18/20 08:52 Sodium 144 mmol/L (137-145) 12/19/20 03:06 Potassium 3.6 mmol/L (3.6-5.0) 12/19/20 03:06 Chloride 115.3 mmol/L (98-107) H 12/19/20 03:06 Carbon Dioxide 15 mmol/L (22-30) L 12/19/20 03:06 Anion Gap 17 mmol/L 12/19/20 03:06 BUN 12 mg/dL (7-17) 12/19/20 03:06 Creatinine 0.5 mg/dL (0.6-1.2) L 12/19/20 03:06 Estimated GFR > 60 ml/min 12/19/20 03:06 BUN/Creatinine Ratio 24 % 12/19/20 03:06 Glucose 207 mg/dL (65-100) H 12/19/20 03:06 POC Glucose 142 mg/dL (70-105) H 12/19/20 10:48 Ketones Quantitative Negative (Negative) 12/18/20 08:52 Calcium 7.9 mg/dL (8.4-10.2) L 12/19/20 03:06 Phosphorus 2.20 mg/dL (2.5-4.5) L D 12/18/20 20:16 Magnesium 1.90 mg/dL (1.7-2.3) 12/18/20 20:16 Total Bilirubin 0.60 mg/dL (0.1-1.2) 12/18/20 08:00 AST 22 units/L (5-40) 12/18/20 08:00 ALT 16 units/L (7-56) 12/18/20 08:00 Alkaline Phosphatase 130 units/L (35-129) H 12/18/20 08:00 Total Protein 7.9 g/dL (6.3-8.2) 12/18/20 08:00 Albumin 4.7 g/dL (3.9-5) 12/18/20 08:00 Albumin/Globulin Ratio 1.5 % 12/18/20 08:00 Lipase 8 units/L (13-60) L 12/18/20 08:00 Urine Color Red (Yellow) 12/19/20 Unknown Urine Turbidity Slightly-cloudy (Clear) 12/19/20 Unknown Urine pH 5.0 (5.0-7.0) 12/19/20 Unknown Ur Specific [place] 1.022 (1.003-1.030) 12/19/20 Unknown Urine Protein 100 mg/dl mg/dL (Negative) 12/19/20 Unknown Urine Glucose (UA) >=500 mg/dL (Negative) 12/19/20 Unknown Urine Ketones 80 mg/dL (Negative) 12/19/20 Unknown Urine Blood Lg (Negative) 12/19/20 Unknown Urine Nitrite Neg (Negative) 12/19/20 Unknown Urine Bilirubin Neg (Negative) 12/19/20 Unknown Urine Urobilinogen < 2.0 mg/dL (<2.0) 12/19/20 Unknown Ur Leukocyte Esterase Sm (Negative) 12/19/20 Unknown Urine WBC (Auto) 32.0 /HPF (0.0-6.0) H 12/19/20 Unknown Urine RBC (Auto) 115.0 /HPF (0.0-6.0) 12/19/20 Unknown U Epithel Cells (Auto) 14.0 /HPF (0-13.0) H 12/19/20 Unknown Urine Mucus Few /HPF 12/19/20 Unknown Active Medications - Current Medications Current Medications: Generic Name Dose Route Start Last Admin Trade Name Freq PRN Reason Stop Dose Admin Acetaminophen 650 mg 12/18/20 23:13 Acetaminophen 325 Mg Tab PO Q6H PRN Pain MILD(1-3)/Fever >100.5/JUAREZ Dextrose 0 ml 12/18/20 10:17 Dextrose 50% In Water (25gm) 50 Ml Syringe IV 12/24/20 18:00 Q30MIN PRN Hypoglycemia Protocol Heparin Sodium (Porcine) 5,000 unit 12/19/20 06:00 12/19/20 06:39 Heparin 5,000 Unit/1 Ml Vial SUB-Q 5,000 unit Q8HR NELLY Administration Insulin Human Regular 100 100 mls @ 1 mls/hr 12/18/20 11:00 12/19/20 07:47 units/ Sodium Chloride IV 2 units/hr TITR NELLY 2 mls/hr Titration Protocol 1 UNITS/HR Potassium Chloride/Dextrose/Sod Cl 20 meq in 1,000 mls @ 125 mls/hr 12/18/20 23:45 12/19/20 08:58 D5w/0.45% Nacl/Kcl 20 Meq IV 125 mls/hr DIRECT NELLY Administration Magnesium Hydroxide 30 ml 12/18/20 23:13 Magnesium Hydroxide (Mom) Oral Liqd Udc PO Q4H PRN Constipation Morphine Sulfate 2 mg 12/18/20 23:13 Morphine 2 Mg/1 Ml Inj IV Q4H PRN Pain, Moderate (4-6) Morphine Sulfate 4 mg 12/18/20 23:13 Morphine 4 Mg/1 Ml Inj IV Q4H PRN Pain , Severe (7-10) Ondansetron HCl 4 mg 12/18/20 23:13 12/19/20 03:14 Ondansetron 4 Mg/2 Ml Inj IV 4 mg Q8H PRN Administration Nausea And Vomiting Sodium Chloride 10 ml 12/19/20 10:00 12/19/20 10:28 Sodium Chloride 0.9% 10 Ml Flush Syringe IV 10 ml BID NELLY Administration Sodium Chloride 10 ml 12/18/20 23:13 Sodium Chloride 0.9% 10 Ml Flush Syringe IV PRN PRN LINE FLUSH Nutrition/Malnutrition Assess - Dietary Evaluation Nutrition/Malnutrition Findings: Nutrition Notes Start: 12/19/20 09:59 Freq: Status: Active Protocol: Document 12/19/20 09:59 GB (Rec: 12/19/20 10:21 GB [email or web address]) Nutrition Notes Need for Assessment generated from: MD Order Initial or Follow up Assessment Current Diagnosis Diabetes Other Pertinent Diagnosis Admitted for: DKA, w/ dehydration, N/V Current Diet NPO Labs/Tests 12/19: creatinine 0.5, glucose 207, Ca 7.9 Pertinent Medications D5(PRN), KCl/D5/NaCl 1000ml ( 170kcal) Height 5 ft 3 in Weight 54.43 kg [place] Body Weight (kg) 52.27 BMI 21.2 Weight change and time frame Admit weight recorded. No reported significant weight changes at admission Weight Status Appropriate Subjective/Other Information MD consult for nutrition recommendation and diet education MD notes: Discharge discontinued r/t pt continues w/ N/V and general weakness Physical assessment: Alert (P, P,T), follows commands GI: nausea, bowel sounds active Percent of energy/protein needs met: 0% - currently NPO Burn Absent Trauma Absent GI Symptoms None Food Allergy No Skin Integrity/Comment no complications reported Current % PO Other Minimum of two criteria No #1 Nutrition Diagnosis Inadequate energy intake Etiology DKA, N/V As Evidenced by Signs and Symptoms NPO, continues N/V, generalized weakness Is patient on ventilator? No Is Patient Ambulatory and/or Out of Bed Yes REE-([facility]-ambulatory/OOB) [ 1583.959 [id number]] Calculation Used for Recommendations [facility] Additional Notes Protein: 1-1.2 g/kg @ 54k -65g Fluids: 1 ml/kcal or per MD Nutrition Intervention Change Diet Order: Advance to GI soft when medically feasible. With goal diet consistent carbohydrate. Encourage snacking on xin crackers/saltines between meals to manage N/V. Nutrition Support: n/a Add Supplement/Snack (indicate name/kcal n/a /protein ) Education Handouts Provided Provide/review general healthy nutrition handout with DM tips when pt n/v resolves. Goal #1 Diet advanced to GI soft with goal diet consistent carbohydrate Goal #2 Provide/review general healthy nutrition handout with DM tips when pt n/v resolves at f /u Follow-Up By: 12/21/20 Additional Comments F/U: Provide/review general healthy nutrition handout with DM tips when pt n/v resolves. Diet advancement/PO intake
[2020-12-19] MEDS ORDERED: DEXTROSE 50% IN WATER (25GM) 50 ML SYRINGE IV PRN (11:05)
[2020-12-19 11:25] LABS: Blood Urea Nitrogen 8 mg/dL (7-17); Hemolysis Index 4
[2020-12-19 12:15] LABS: BUN/Creatinine Ratio 20
[2020-12-19] MEDS: INSULIN REGULAR, HUMAN 100 UNITS/1 ML SUB-Q SCH ×2 (12:22→16:10)
[2020-12-19] MEDS ORDERED: INSULIN NPH/REGULAR 70/30 INJ SUB-Q ONE (13:00)
[2020-12-19 17:24] VITALS: BP 140/88
[2020-12-19] MEDS ORDERED: cefTRIAXone/NS 1 GM/50 ML 1 GM/50 ML BAG IV SCH (22:00)
[2020-12-19] MEDS ORDERED: INSULIN NPH/REGULAR 70/30 INJ SUB-Q SCH (22:00)
--- NOTE | 2020-12-20 10:32 | Discharge Summary ---
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 She also has known history of gastroparesis. She denied any diarrhea, no fever or chills, no abdominal pain, no chest pain or shortness of breath, no hematuria or dysuria. She denied any excessive thirst or excessive urination. She indicated she has been compliant with medications for diabetes. She was evaluated in the emergency room and found to be in DKA. However she was said to be discharged home later in the evening. Attention was called to labs and patient's general condition as patient still has an elevated anion gap and appears generally weak. The patient was admitted with diagnosis of DKA and started on IV insulin drip, IV fluid hydration. On the following hospital day, DKA resolved and anion gap closed. Patient was transitioned to her home insulin regimen. Patient was to be monitored for 24 more hours. However, patient left AMA. Dedicated discharge time 32 minutes Disposition: 07 LEFT AGAINST MEDICAL ADVICE Final Discharge Diagnosis (Prints w/discharge instructions): DKA Core Measure Documentation - Palliative Care Palliative Care/ Comfort Measures: Not Applicable - Core Measures Any of the following diagnoses?: none Exam - Constitutional Vitals: Temp Pulse Resp BP Pulse Ox 98.0 F 90 12 140/88 100 12/19/20 04:39 12/19/20 17:16 12/19/20 17:16 12/19/20 17:16 12/19/20 17:16 General appearance: Present: no acute distress, well-nourished - EENT Eyes: Present: PERRL ENT: hearing intact, clear oral mucosa - Neck Neck: Present: supple, normal ROM - Respiratory Respiratory effort: normal Respiratory: bilateral: CTA - Cardiovascular Heart Sounds: Present: S1 & S2. Absent: rub, click - Extremities Extremities: pulses symmetrical, No edema Peripheral Pulses: within normal limits - Abdominal General gastrointestinal: Present: soft, non-tender, non-distended, normal bowel sounds Female genitourinary: Present: normal - Integumentary Integumentary: Present: clear, warm, dry - Musculoskeletal Musculoskeletal: gait normal, strength equal bilaterally - Psychiatric Psychiatric: appropriate mood/affect, intact judgment & insight - Neurologic Neurologic: CNII-XII intact, moves all extremities Plan Activity: advance as tolerated Weight Bearing Status: Weight Bear as Tolerated Diet: diabetic Follow up with: PRIMARY CARE, [Primary Care Provider] - 3-5 Days Prescriptions: SUMAtriptan succinate [SUMAtriptan Succinate] 100 mg PO DAILY #9 tablet Ondansetron [Zofran Odt] 4 mg PO Q8HR #14 tabcamilo
== END 2020-12-19 18:43 | disposition left against medical advice (07) | DRG 639 ==
LOC: ED 07:05 → CC1 23:13 → 4A 12-19 12:30
PROVIDERS: ADMIT Internal Medicine Geriatric Medicine; ATTEND Hospitalist
DX: E11.10 Type 2 diabetes mellitus with ketoacidosis without coma (principal); E86.0 Dehydration; I10 Essential (primary) hypertension; Z20.822 Contact with and (suspected) exposure to COVID-19
CPT/HCPCS: 36415; 71046; 80048; 80053; 81001; 82010; 82805; 82962; 83690; 83735; 84100; 85025; 87086; G0378; C9113; J1644; J1815; J2405; J2765; J7030

== ENCOUNTER 2021-01-30 07:09 | Inpatient (IN) | payer SELFPAY ==
[2021-01-30] MEDS ORDERED: INSULIN REGULAR, HUMAN 100 UNITS/1 ML IV ONE (07:41)
[2021-01-30] MEDS ORDERED: SODIUM CHLORIDE 0.9% 1000 ML 1,000 ML IV ONE ×2 (07:41)
[2021-01-30] MEDS ORDERED: ONDANSETRON 4 MG/2 ML INJ IV ONE ×2 (07:41→16:55)
[2021-01-30] MEDS ORDERED: MORPHINE 4 MG/1 ML INJ IV ONE (08:29)
--- NOTE | 2021-01-30 08:32 | Emergency Department Report ---
ED N/V/D HPI - General Chief complaint: Hyperglycemia Stated complaint: Neusea Vomiting Diabetes Time Seen by Provider: 01/30/21 07:39 Source: patient Mode of arrival: Ambulatory Limitations: No Limitations - History of Present Illness Initial comments: Chief complaint: Nausea HPI: This is a 35-year-old female with history of insulin-dependent diabetes since age 13 who presents with nausea vomiting, generalized malaise. Last dose of insulin on yesterday. History of GERD diabetic gastroparesis. She has chest discomfort with vomiting. She has generalized abdominal discomfort. No discrete pain. She denies fever, headache, cough, shortness of breath. After moving from [facility] to [facility] she was unable to continue medical care at [facility]. 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 She hopes to obtain health insurance in the new year. MD complaint: nausea, vomiting -: days(s) (2 days) Description of Vomiting: food contents Associated Abdominal Pain: Yes ( generalized abdominal discomfort) Location: diffuse Radiation: none Severity: moderate Quality: dull Consistency: constant Improves with: none Worsens with: none Context: other (History of diabetic gastroparesis history of insulin-dependent diabetes) Associated Symptoms: nausea/vomiting - Related Data Previous Rx's Medication Instructions Recorded Last Taken Type Ascorbic Acid [Vitamin C] 500 mg PO QDAY #20 tablet 06/03/20 Unknown Rx Cholecalciferol (Vitamin D3) 5,000 unit PO DAILY #20 tablet 06/03/20 Unknown Rx [Vitamin D3] Insulin NPH, Human [NovoLIN N] 25 unit SUB-Q BIDDIAB #60 units 06/03/20 Unknown Rx Losartan [Cozaar] 25 mg PO QDAY #30 tablet 06/03/20 Unknown Rx Pantoprazole [Protonix TAB] 40 mg PO QDAC #14 tablet 06/03/20 Unknown Rx Zinc Sulfate 220 mg PO BID #14 capsule 06/03/20 Unknown Rx Ondansetron [Zofran Odt] 4 mg PO Q8HR #14 tab.rapdis 12/18/20 Unknown Rx SUMAtriptan succinate [SUMAtriptan 100 mg PO DAILY #9 tablet 12/18/20 Unknown Rx Succinate] Allergies Allergy/AdvReac Type Severity Reaction Status Date / Time No Known Allergies Allergy Verified 05/31/20 11:12 ED Review of Systems ROS: Stated complaint: Neusea Vomiting Diabetes Other details as noted in HPI Comment: All other systems reviewed and negative Constitutional: denies: chills, fever, malaise Respiratory: denies: cough, shortness of breath Cardiovascular: chest pain Gastrointestinal: abdominal pain, nausea, vomiting ED Past Medical Hx - Past Medical History Previous Medical History?: Yes Hx Diabetes: Yes (TYPE 1) Additional medical history: gastroparesis - Surgical History Past Surgical History?: Yes Additional Surgical History: mouth - Social History Smoking Status: Never Smoker Substance Use Type: None - Medications Home Medications: Home Medications Medication Instructions Recorded Confirmed Last Taken Type Ascorbic Acid [Vitamin C] 500 mg PO QDAY #20 tablet 06/03/20 Unknown Rx Cholecalciferol (Vitamin D3) 5,000 unit PO DAILY #20 tablet 06/03/20 Unknown Rx [Vitamin D3] Insulin NPH, Human [NovoLIN N] 25 unit SUB-Q BIDDIAB #60 units 06/03/20 Unknown Rx Losartan [Cozaar] 25 mg PO QDAY #30 tablet 06/03/20 Unknown Rx Pantoprazole [Protonix TAB] 40 mg PO QDAC #14 tablet 06/03/20 Unknown Rx Zinc Sulfate 220 mg PO BID #14 capsule 06/03/20 Unknown Rx Ondansetron [Zofran Odt] 4 mg PO Q8HR #14 tab.rapdis 12/18/20 Unknown Rx SUMAtriptan succinate [SUMAtriptan 100 mg PO DAILY #9 tablet 12/18/20 Unknown Rx Succinate] ED Physical Exam - General Limitations: No Limitations General appearance: alert, in no apparent distress, other (Appears uncomfortable) - Head Head exam: Present: atraumatic, normocephalic - Eye Eye exam: Present: normal appearance - ENT ENT exam: Present: mucous membranes moist - Neck Neck exam: Present: normal inspection, full ROM - Respiratory Respiratory exam: Present: normal lung sounds bilaterally. Absent: respiratory distress, wheezes, rales, rhonchi - Cardiovascular Cardiovascular Exam: Present: regular rate, normal rhythm, normal heart sounds. Absent: systolic murmur, diastolic murmur, rubs, gallop - GI/Abdominal GI/Abdominal exam: Present: soft, normal bowel sounds. Absent: distended, tenderness, guarding, rebound - Extremities Exam Extremities exam: Present: normal inspection - Neurological Exam Neurological exam: Present: alert, oriented X3 - Psychiatric Psychiatric exam: Present: normal affect, normal mood - Skin Skin exam: Present: warm, dry, intact, normal color. Absent: rash ED Course Vital Signs 01/30/21 01/30/21 07:22 08:10 Temperature 97.6 F Pulse Rate 90 Respiratory 16 Rate Blood Pressure 129/82 O2 Sat by Pulse 99 96 Oximetry ED Medical Decision Making - Lab Data Result diagrams: 01/30/21 08:15 01/30/21 08:15 - Medical Decision Making Clinical impression: Diabetic ketoacidosis with history of diabetic gastroparesis venous pH 7.24, anion gap 40, bicarbonate 7 No clinical evidence of infection. Treatment emergency department includes 2 L normal saline IVF bolus, insulin regular bolus, insulin infusion. Admitted to the CCU in fair condition Critical care attestation.: If time is entered above; I have spent that time in minutes in the direct care of this critically ill patient, excluding procedure time. ED Disposition Clinical Impression: Diabetic ketoacidosis Disposition: ADMITTED INPATIENT Is pt being admited?: Yes Does the pt Need Aspirin: No Condition: Fair Instructions: Diabetic Ketoacidosis (ED)
[2021-01-30 08:33] LABS: Basophils # (Auto) 0.1 K/mm3 (0.0-0.1); Basophils % (Auto) 0.6 % (0.0-1.8); Lymphocytes # (Auto) 0.6 K/mm3 (1.2-5.4); Lymphocytes % (Auto) 4.9 % (13.4-35.0); Mean Corpuscular HGB Conc 30 % (30-34); Mean Corpuscular Volume 81 fl (79-97); Monocytes # (Auto) 0.6 K/mm3 (0.0-0.8); Monocytes % (Auto) 5.2 % (0.0-7.3); Platelet Count 282 K/mm3 (140-440); Red Blood Count 5.55 M/mm3 (3.65-5.03)
[2021-01-30 08:37] LABS: Hematocrit 44.8 % (30.3-42.9); Hemoglobin 13.6 gm/dl (10.1-14.3)
[2021-01-30 09:07] LABS: BUN/Creatinine Ratio 25; Blood Urea Nitrogen 20 mg/dL (7-17); Calcium 10.4 mg/dL (8.4-10.2); Hemolysis Index 69
[2021-01-30] MEDS ORDERED: INSULIN REGULAR, HUMAN 100 UNITS in SODIUM CHLORIDE 0.9% 99 ML IV SCH (11:00)
--- NOTE | 2021-01-30 11:43 | History and Physical Report ---
History of Present Illness Date of examination: 01/30/21 Date of admission: 01/30/21 10:11 Chief complaint: N/V History of present illness: This is a 35-year-old female with history of insulin-dependent diabetes since age 13, GERD, diabetic gastroparesis who presents with nausea vomiting, generalized malaise for couple days. Her Last dose of insulin on yesterday. She also c/o chest discomfort with vomiting and generalized abdominal discomfort. She denies fever, headache, cough, shortness of breath. Patient has history of COVID-19 pneumonia back on May 2020, patient is unvaccinated for Covid. She was evaluated in the ER and found to be in DKA with white count 12.1, sodium 146, CO2 7, blood sugar 553. She was initiated on insulin drip and call for admission for further evaluation and management. Patient currently resting on room air. Past History Past Medical History: diabetes, other (Gastroparesis) Past Surgical History: Other (Mouth surgery in the past) Social history: no significant social history Family history: no significant family history Review of Systems Constitutional: fatigue, no fever, no chills Cardiovascular: no chest pain, no palpitations Respiratory: no cough, no shortness of breath Gastrointestinal: nausea, vomiting, no abdominal pain, no diarrhea Genitourinary Female: no pelvic pain, no flank pain, no dysuria, no hematuria Musculoskeletal: no neck pain, no low back pain Integumentary: no rash, no pruritis Neurological: no headaches, no confusion Psychiatric: no anxiety, no depression Endocrine: no polyphagia, no polydipsia, no polyuria, no nocturia Medications and Allergies Allergies Allergy/AdvReac Type Severity Reaction Status Date / Time No Known Allergies Allergy Verified 02/01/21 00:01 Home Medications Medication Instructions Recorded Confirmed Last Taken Type Insulin NPH, Human [NovoLIN N] 25 unit SUB-Q BIDDIAB #60 units 06/03/20 02/01/21 01/30/21 22:00 Rx Losartan [Cozaar] 25 mg PO QDAY #30 tablet 06/03/20 Unknown Rx Pantoprazole [Protonix TAB] 40 mg PO QDAC #14 tablet 06/03/20 Unknown Rx Ondansetron [Zofran ODT TAB] 4 mg PO Q8HR #14 tab.rapdis 12/18/20 Unknown Rx SUMAtriptan succinate [SUMAtriptan 100 mg PO DAILY #9 tablet 12/18/20 Unknown Rx Succinate] Ascorbic Acid [Vitamin C] 500 mg PO QDAY #20 tablet 02/01/21 Unknown Rx Cholecalciferol (Vitamin D3) 5,000 unit PO DAILY #20 tablet 02/01/21 Unknown Rx [Vitamin D3] Zinc Sulfate 220 mg PO BID #14 capsule 02/01/21 Unknown Rx Active Meds: Active Medications Insulin Human Regular 100 (units/ Sodium Chloride) 100 mls @ 1 mls/hr IV TITR NELLY; Protocol Last Admin: 01/30/21 10:59 Dose: 7 units/hr, 7 mls/hr Documented by: Exam - Physical Exam Narrative exam: GENERAL: well-developed lean and thin -Congolese female lying on bed appeared to be in no discomfort. HEENT: Normocephalic. Atraumatic. No conjunctival congestion or icterus. Patient has moist mucous membranes. NECK: Supple. Trachea midline. CHEST/LUNGS: Clear to auscultated bilaterally, breathing nonlabored. No wheezes crackles or rhonchi. HEART/CARDIOVASCULAR: Regular in rate and rhythm. S1 and S2 positive. ABDOMEN: Abdomen is soft, mild tender. Patient has normal bowel sounds. SKIN: There is no rash. Warm and dry. NEURO: No focal motor deficit. Follows command. MUSCULOSKELETAL: No joint effusion or tenderness. EXTRIMITY: No edema, no cyanosis or clubbing. PSYCH: Cooperative. - Constitutional Vitals: Temp Pulse Resp BP Pulse Ox 97.6 F 90 16 129/82 96 01/30/21 07:22 01/30/21 07:22 01/30/21 07:22 01/30/21 07:22 01/30/21 08:10 Results - Labs CBC & Chem 7: 02/01/21 06:12 02/01/21 06:12 Labs: Abnormal lab results 01/30/21 01/30/21 01/30/21 Range/Units 07:27 08:15 08:15 WBC 12.1 H (4.5-11.0) K/mm3 RBC 5.55 H (3.65-5.03) M/mm3 Hct 44.8 H (30.3-42.9) % MCH 25 L (28-32) pg Lymph % (Auto) 4.9 L (13.4-35.0) % Lymph # (Auto) 0.6 L (1.2-5.4) K/mm3 Seg Neutrophils % 89.3 H (40.0-70.0) % Seg Neutrophils # 10.8 H (1.8-7.7) K/mm3 VBG pH (7.320-7.420) Potassium 5.4 H (3.6-5.0) mmol/L Chloride 96.2 L (98-107) mmol/L Carbon Dioxide 7 L* (22-30) mmol/L BUN 20 H (7-17) mg/dL Glucose 553 H* (65-100) mg/dL POC Glucose 525 H (70-105) mg/dL Calcium 10.4 H (8.4-10.2) mg/dL Phosphorus (2.5-4.5) mg/dL Magnesium (1.7-2.3) mg/dL 01/30/21 01/30/21 01/30/21 Range/Units 08:15 08:15 10:10 WBC (4.5-11.0) K/mm3 RBC (3.65-5.03) M/mm3 Hct (30.3-42.9) % MCH (28-32) pg Lymph % (Auto) (13.4-35.0) % Lymph # (Auto) (1.2-5.4) K/mm3 Seg Neutrophils % (40.0-70.0) % Seg Neutrophils # (1.8-7.7) K/mm3 VBG pH 7.235 L (7.320-7.420) Potassium (3.6-5.0) mmol/L Chloride (98-107) mmol/L Carbon Dioxide (22-30) mmol/L BUN (7-17) mg/dL Glucose (65-100) mg/dL POC Glucose 398 H (70-105) mg/dL Calcium (8.4-10.2) mg/dL Phosphorus 5.50 H (2.5-4.5) mg/dL Magnesium 2.50 H (1.7-2.3) mg/dL Assessment and Plan DKA with uncontrolled diabetes mellitus type 1 -- We will admit the patient to ICU, placed on DKA protocol - We'll continue insulin drip and monitor blood glucose every hour - We will continue IV fluid hydration with normal saline - Will change to D5 normal saline once blood glucose reaches below 250 - We'll repeat BMP every 6 hours till anion gap closes - We will replace potassium and magnesium as needed - We'll keep the patient nothing by mouth for now, will place on ADA diet when anion gap closes - We'll provide GI and DVT prophylaxis Hyperkalemia -Should improve with improvement of blood glucose -Continue insulin drip and follow BMP every 6 hours --Nausea vomiting, due to DKA and diabetic gastroparesis Continue Reglan IV every 6 hours as needed as needed --SIRS, likely reactive -We will also rule out for COVID-19 DVT Px, Lovenox The high probability of a clinically significant, sudden or life threatening deterioration of the system(s) required my full and direct attention, intervention and personal management. The aggregate critical care time was [45] minutes. This time is in addition to time spent performing reported procedures but includes the following: [x] Data Review and interpretation [x] Patient assessment and monitoring of vital signs [x] Documentation [x] Medication orders and management
[2021-01-30] MEDS ORDERED: hydrALAZINE 20 MG/1 ML INJ IV PRN (14:00)
[2021-01-30] MEDS ORDERED: ACETAMINOPHEN 325 MG TAB PO PRN ×2 (14:00→16:00)
[2021-01-30] MEDS ORDERED: D5W/0.45% NACL/KCL 20 MEQ 20 MEQ/1,000 ML BAG IV SCH (17:00)
[2021-01-30 17:55] LABS: Blood Urea Nitrogen 17 mg/dL (7-17); Calcium 9.4 mg/dL (8.4-10.2); Hemolysis Index 46
[2021-01-30 17:58] LABS: BUN/Creatinine Ratio 28
[2021-01-30] MEDS ORDERED: ONDANSETRON 4 MG/2 ML INJ IV PRN (20:50)
[2021-01-30] MEDS: ENOXAPARIN 40 MG/0.4 ML INJ SUB-Q SCH (21:57)
[2021-01-31] MEDS ORDERED: DEXTROSE 50% IN WATER (25GM) 50 ML SYRINGE IV PRN (00:41)
[2021-01-31 01:01] LABS: Blood Urea Nitrogen 13 mg/dL (7-17); Calcium 8.9 mg/dL (8.4-10.2); Hemolysis Index 19
[2021-01-31 01:07] LABS: BUN/Creatinine Ratio 26
[2021-01-31] MEDS ORDERED: ONDANSETRON 4 MG/2 ML INJ IV ONE (02:51)
[2021-01-31] MEDS: SODIUM CHLORIDE 0.9% 1000 ML 1,000 ML IV SCH ×2 (03:00→23:00)
[2021-01-31] MEDS ORDERED: INSULIN LISPRO 100 UNIT/ML SUB-Q SCH (05:00)
[2021-01-31] MEDS: INSULIN LISPRO 100 UNIT/ML SUB-Q SCH ×5 (05:06→22:58)
[2021-01-31 05:54] LABS: Blood Urea Nitrogen 15 mg/dL (7-17); Calcium 8.6 mg/dL (8.4-10.2); Hemolysis Index 1
[2021-01-31 06:05] LABS: BUN/Creatinine Ratio 30
[2021-01-31] MEDS: LOSARTAN 25 MG TAB PO SCH (10:24)
[2021-01-31 16:41] LABS: Hemoglobin 11.4 gm/dl (10.1-14.3); Mean Corpuscular HGB Conc 31 % (30-34); Mean Corpuscular Volume 80 fl (79-97); Platelet Count 288 K/mm3 (140-440); Red Blood Count 4.65 M/mm3 (3.65-5.03); Red Cell Distribution Width 15.4 % (13.2-15.2)
--- NOTE | 2021-01-31 16:44 | Progress Note ---
Assessment and Plan DKA with uncontrolled diabetes mellitus type 1 -Anion gap now resolved, insulin drip discontinued Will initiate on consistent carb diet and sliding scale of insulin We will also start long-acting insulin and monitor blood glucose --Hypernatremia, POA Due to dehydration, continue to monitor BMP and continue IV fluid Hyperkalemia -Improved with improvement of blood glucose Repeat BMP in the morning --Nausea vomiting, due to DKA and diabetic gastroparesis Continue Reglan IV every 6 hours as needed as needed --SIRS, likely reactive -We will also rule out for COVID-19 -test ordered and pending DVT Px, Lovenox Disposition plan --Blood glucose improved, discontinued insulin drip, start on consistent carb d iet, pending COVID-19 test -Initiate SSI and long-acting insulin --Monitor blood glucose and continue to provide supportive care --Need inpatient care --If blood glucose stabilizes and tolerates diet possible DC in the morning Subjective Date of service: 01/31/21 Interval history: Patient seen and examined. Medical records and medication list reviewed. No acute event overnight noted by the RN. Patient denies any chest pain or difficulty breathing. Anion gap resolved, insulin drip discontinued Pending Covid test Discussed plan of care at bedside with patient. Objective - Exam Narrative Exam: GENERAL: well-developed lean and thin -Turkmen female lying on bed appeared to be in no discomfort. HEENT: Normocephalic. Atraumatic. No conjunctival congestion or icterus. Patient has moist mucous membranes. NECK: Supple. Trachea midline. CHEST/LUNGS: Clear to auscultated bilaterally, breathing nonlabored. No wheezes crackles or rhonchi. HEART/CARDIOVASCULAR: Regular in rate and rhythm. S1 and S2 positive. ABDOMEN: Abdomen is soft. Patient has normal bowel sounds. SKIN: There is no rash. Warm and dry. NEURO: No focal motor deficit. Follows command. MUSCULOSKELETAL: No joint effusion or tenderness. EXTRIMITY: No edema, no cyanosis or clubbing. PSYCH: Cooperative. - Constitutional Vitals: Vital Signs - 12hr 01/31/21 01/31/21 01/31/21 05:00 06:00 07:05 Pulse Rate 99 H 97 H Respiratory 12 12 Rate Blood Pressure 152/91 156/99 [Left] O2 Sat by Pulse 99 98 99 Oximetry 01/31/21 11:34 Pulse Rate 88 Respiratory 16 Rate Blood Pressure 138/88 [Left] O2 Sat by Pulse 100 Oximetry - Labs CBC & Chem 7: 02/01/21 06:12 02/01/21 06:12 Labs: Abnormal lab results 01/30/21 01/30/21 01/30/21 Range/Units 17:25 17:34 18:32 Sodium 146 H D (137-145) mmol/L Chloride 113.7 H (98-107) mmol/L Carbon Dioxide 15 L D (22-30) mmol/L Creatinine (0.6-1.2) mg/dL Glucose 256 H (65-100) mg/dL POC Glucose 219 H 238 H (70-105) mg/dL 01/30/21 01/30/21 01/30/21 Range/Units 19:40 21:11 22:21 Sodium (137-145) mmol/L Chloride (98-107) mmol/L Carbon Dioxide (22-30) mmol/L Creatinine (0.6-1.2) mg/dL Glucose (65-100) mg/dL POC Glucose 185 H 143 H 139 H (70-105) mg/dL 01/30/21 01/31/21 01/31/21 Range/Units 23:23 00:33 00:35 Sodium 147 H (137-145) mmol/L Chloride 117.0 H (98-107) mmol/L Carbon Dioxide 20 L (22-30) mmol/L Creatinine 0.5 L (0.6-1.2) mg/dL Glucose 150 H (65-100) mg/dL POC Glucose 130 H 128 H (70-105) mg/dL 01/31/21 01/31/21 01/31/21 Range/Units 04:52 05:01 07:05 Sodium 148 H (137-145) mmol/L Chloride 113.4 H (98-107) mmol/L Carbon Dioxide 19 L (22-30) mmol/L Creatinine 0.5 L (0.6-1.2) mg/dL Glucose 277 H (65-100) mg/dL POC Glucose 254 H 214 H (70-105) mg/dL 01/31/21 Range/Units 09:27 Sodium (137-145) mmol/L Chloride (98-107) mmol/L Carbon Dioxide (22-30) mmol/L Creatinine (0.6-1.2) mg/dL Glucose (65-100) mg/dL POC Glucose 202 H (70-105) mg/dL
[2021-01-31] MEDS: INSULIN NPH, HUMAN 100 UNIT/1 ML SUB-Q SCH (17:32)
[2021-01-31 18:32] LABS: Total Cells Counted 100
[2021-01-31 18:33] LABS: Anisocytosis 1+; Hypochromasia 1+
[2021-01-31] MEDS: ENOXAPARIN 40 MG/0.4 ML INJ SUB-Q SCH (22:59)
[2021-02-01] MEDS: INSULIN LISPRO 100 UNIT/ML SUB-Q SCH ×3 (01:14→11:59)
[2021-02-01 08:06] LABS: Blood Urea Nitrogen 10 mg/dL (7-17); Calcium 8.2 mg/dL (8.4-10.2); Hemolysis Index 0
[2021-02-01 08:14] LABS: BUN/Creatinine Ratio 20
[2021-02-01 08:17] LABS: Basophils % (Auto) 0.2 % (0.0-1.8); Lymphocytes # (Auto) 2.2 K/mm3 (1.2-5.4); Lymphocytes % (Auto) 17.7 % (13.4-35.0); Mean Corpuscular HGB Conc 30 % (30-34); Mean Corpuscular Volume 79 fl (79-97); Monocytes # (Auto) 1.4 K/mm3 (0.0-0.8); Monocytes % (Auto) 11.5 % (0.0-7.3); Platelet Count 278 K/mm3 (140-440); Red Blood Count 4.35 M/mm3 (3.65-5.03); Red Cell Distribution Width 15.7 % (13.2-15.2)
[2021-02-01 08:21] LABS: Hematocrit 34.2 % (30.3-42.9); Hemoglobin 10.4 gm/dl (10.1-14.3)
[2021-02-01] MEDS: LOSARTAN 25 MG TAB PO SCH (09:00)
[2021-02-01] MEDS: SODIUM CHLORIDE 0.9% 1000 ML 1,000 ML IV SCH (09:01)
[2021-02-01] MEDS: INSULIN NPH, HUMAN 100 UNIT/1 ML SUB-Q SCH (09:24)
[2021-02-01 11:14] VITALS: BP 128/77
--- NOTE | 2021-02-01 11:40 | Discharge Summary ---
Providers - Providers Date of Admission: 01/30/21 10:11 Date of discharge: 02/01/21 Attending physician: AJCKI MCFARLAND 02/01/21 09:00 Consult to Physician [CONS] Routine Comment: Consulting Provider: WOODY GARCIA Physician Instructions: Reason For Exam: covid 19 positive Primary care physician: [facility] Hospitalization Condition: Fair Hospital course: This is a 35-year-old female with history of insulin-dependent diabetes since age 13, GERD, diabetic gastroparesis who presents with nausea vomiting, generalized malaise for couple days. Her Last dose of insulin on yesterday. She also c/o chest discomfort with vomiting and generalized abdominal discomfort. She denies fever, headache, cough, shortness of breath. Patient has history of COVID-19 pneumonia back on May 2020, patient is unvaccinated for Covid. She was evaluated in the ER and found to be in DKA with white count 12.1, sodium 146, CO2 7, blood sugar 553. She was initiated on insulin drip and called for admission for further evaluation and management. Patient was weaned off from insulin drip as BG improved and anion gap closed. Patient was continued on iv fluid, consistent carb diet, Placed on Long-acting insulin and SSI. Adjusted long acting insulin dose to better improve BG level, counselled for dietary and insulin regimen compliance. Patient was tested positive for Covid but she remained asymptomatic with stable inflammatory markers. Patient noted to be on room air without any cough and respiratory symptoms. Patient wanted to go home and follow-up as outpatient. Patient advised to stay quarantined and to come back to ER if symptoms worsen. She was also counseled to be compliant with her insulin regimen and antihypertensives, she verbalized understanding, patient was then discharged home in stable condition with outpt f/u. Disposition: HOME / SELF CARE / HOMELESS Final Discharge Diagnosis (Prints w/discharge instructions): --DKA with type 1 diabetes. --COVID 19 positive. --hyperkalemia. --Hypernatremia. --SIRS. --HTN Time spent for discharge: 34 minutes Core Measure Documentation - Palliative Care Palliative Care/ Comfort Measures: Not Applicable - Core Measures Any of the following diagnoses?: none Exam - Physical Exam Narrative exam: Limited physical exam due to COVID-19 pandemic to minimize transmission of the disease and to preserve PPE. Vital reviewed and stable. GENERAL: AAF lying on bed appeared to be in no discomfort. HEENT: Normocephalic. Atraumatic. NECK: Supple. CHEST/LUNGS: breathing nonlabored. HEART/CARDIOVASCULAR: Heart rate stable on telemetry ABDOMEN: Visibly not distended SKIN: There is no rash NEURO: No focal motor deficit. Follows command. MUSCULOSKELETAL: No joint effusion EXTRIMITY: No swelling, no cyanosis or clubbing. PSYCH: Cooperative.. - Constitutional Vitals: Temp Pulse Resp BP Pulse Ox 97.5 F L 94 H 19 128/77 100 02/01/21 11:12 02/01/21 11:12 02/01/21 11:12 02/01/21 11:12 02/01/21 11:12 Plan Activity: advance as tolerated Weight Bearing Status: Weight Bear as Tolerated Diet: diabetic Special Instructions: record blood sugar diary (qACHS) Additional Instructions: Please follow CDC guideline for quarantine and please come back if your symptom worsens Follow up with: PRIMARY CAREMD [Primary Care Provider] - 3-5 Days SPENCER SILVERMAN MD [Staff Physician] - 7 Days Prescriptions: Ascorbic Acid [Vitamin C] 500 mg PO QDAY #20 tablet Cholecalciferol (Vitamin D3) [Vitamin D3] 5,000 unit PO DAILY #20 tablet Zinc Sulfate 220 mg PO BID #14 capsule
--- NOTE | 2021-02-01 13:35 | Consultation ---
History of Present Illness - Reason for Consult Consult date: 02/01/21 COVID Requesting physician: JACKI MCFARLAND - History of Present Illness The patient is a 35-year-old admitted to the hospital with COVID-19. She is not hypoxic and afebrile. She was admitted with nausea, vomiting and was found to be in diabetic ketoacidosis. Review of Systems: reviewed in the chart, unable to obtain, minimize risk of transmission Medications and Allergies Allergies Allergy/AdvReac Type Severity Reaction Status Date / Time No Known Allergies Allergy Verified 02/01/21 00:01 Home Medications Medication Instructions Recorded Confirmed Last Taken Type Insulin NPH, Human [NovoLIN N] 25 unit SUB-Q BIDDIAB #60 units 06/03/20 02/01/21 01/30/21 22:00 Rx Losartan [Cozaar] 25 mg PO QDAY #30 tablet 06/03/20 Unknown Rx Pantoprazole [Protonix TAB] 40 mg PO QDAC #14 tablet 06/03/20 Unknown Rx Ondansetron [Zofran ODT TAB] 4 mg PO Q8HR #14 tab.rapdis 12/18/20 Unknown Rx SUMAtriptan succinate [SUMAtriptan 100 mg PO DAILY #9 tablet 12/18/20 Unknown Rx Succinate] Ascorbic Acid [Vitamin C] 500 mg PO QDAY #20 tablet 02/01/21 Unknown Rx Cholecalciferol (Vitamin D3) 5,000 unit PO DAILY #20 tablet 02/01/21 Unknown Rx [Vitamin D3] Zinc Sulfate 220 mg PO BID #14 capsule 02/01/21 Unknown Rx Active Meds: Active Medications Acetaminophen (Acetaminophen 325 Mg Tab) 650 mg PO Q4H PRN PRN Reason: Pain MILD(1-3)/Fever >100.5/JUAREZ Dextrose (Dextrose 50% In Water (25gm) 50 Ml Syringe) 50 ml IV Q30MIN PRN; Protocol PRN Reason: Hypoglycemia Enoxaparin Sodium (Enoxaparin 40 Mg/0.4 Ml Inj) 40 mg SUB-Q QDAY@2200 NELLY; Protocol Last Admin: 01/31/21 22:59 Dose: 40 mg Documented by: Hydralazine HCl (Hydralazine 20 Mg/1 Ml Inj) 5 mg IV Q30MIN PRN PRN Reason: Hypertension Last Admin: 01/31/21 22:59 Dose: 5 mg Documented by: Sodium Chloride (Nacl 0.9% 1000 Ml) 1,000 mls @ 100 mls/hr IV DIRECT [facility] Last Admin: 02/01/21 09:01 Dose: 100 mls/hr Documented by: Insulin Human Lispro (Insulin Lispro 100 Unit/Ml) 0 unit SUB-Q Q4H [facility]; Protocol Last Admin: 02/01/21 11:59 Dose: 3 unit Documented by: Insulin Human NPH (Insulin Nph, Human 100 Unit/1 Ml) 25 unit SUB-Q BIDDIAB [facility] Last Admin: 02/01/21 09:24 Dose: 25 unit Documented by: Losartan Potassium (Losartan 25 Mg Tab) 25 mg PO QDAY [facility] Last Admin: 02/01/21 09:00 Dose: 25 mg Documented by: Ondansetron HCl (Ondansetron 4 Mg/2 Ml Inj) 4 mg IV Q8H PRN PRN Reason: N/V unrelieved by Reglan Last Admin: 02/01/21 01:14 Dose: 4 mg Documented by: Physical Examination - Physical Exam Narrative exam: Physical Exam (reviewed in chart to minimize risk of transmission) Constitutional: deferred Head, Ears, Nose: deferred Eyes: deferred Neck: deferred Oral: deferred Cardiovascular: deferred Respiratory: deferred GI: deferred Musculoskeletal: deferred Skin: deferred Hem/Lymphatic: deferred Psych: deferred Neurological: deferred - Constitutional Vitals: Vital Signs Temp Pulse Resp BP Pulse Ox 97.5 F L 94 H 19 128/77 100 02/01/21 11:12 02/01/21 11:12 02/01/21 11:12 02/01/21 11:12 02/01/21 11:12 Temperature -Last 24 Hours Temperature 97.5 F Temperature 98.0 F Temperature 97.7 F Temperature 98.2 F Results - Labs CBC & Chem 7: 02/01/21 06:12 02/01/21 06:12 Labs: Abnormal lab results 01/30/21 01/31/21 01/31/21 Range/Units Unknown 16:16 16:16 WBC 14.4 H (4.5-11.0) K/mm3 MCH 25 L (28-32) pg RDW 15.4 H (13.2-15.2) % Hartley % (Auto) (0.0-7.3) % Hartley # (Auto) (0.0-0.8) K/mm3 Seg Neutrophils % (40.0-70.0) % Seg Neuts % (Manual) 72.0 H (40.0-70.0) % Monocytes % (Manual) 11.0 H (0.0-7.3) % Seg Neutrophils # (1.8-7.7) K/mm3 Seg Neutrophils # Man 10.4 H (1.8-7.7) K/mm3 Monocytes # (Manual) 1.6 H (0.0-0.8) K/mm3 D-Dimer (0-234) ng/mlDDU Chloride (98-107) mmol/L Carbon Dioxide (22-30) mmol/L Creatinine (0.6-1.2) mg/dL Glucose 385 H (65-100) mg/dL POC Glucose (70-105) mg/dL Calcium (8.4-10.2) mg/dL Coronavirus (PCR) Positive A (Negative) 01/31/21 01/31/21 02/01/21 Range/Units 18:49 21:32 01:06 WBC (4.5-11.0) K/mm3 MCH (28-32) pg RDW (13.2-15.2) % Hartley % (Auto) (0.0-7.3) % Hartley # (Auto) (0.0-0.8) K/mm3 Seg Neutrophils % (40.0-70.0) % Seg Neuts % (Manual) (40.0-70.0) % Monocytes % (Manual) (0.0-7.3) % Seg Neutrophils # (1.8-7.7) K/mm3 Seg Neutrophils # Man (1.8-7.7) K/mm3 Monocytes # (Manual) (0.0-0.8) K/mm3 D-Dimer (0-234) ng/mlDDU Chloride (98-107) mmol/L Carbon Dioxide (22-30) mmol/L Creatinine (0.6-1.2) mg/dL Glucose 340 H (65-100) mg/dL POC Glucose 240 H 232 H (70-105) mg/dL Calcium (8.4-10.2) mg/dL Coronavirus (PCR) (Negative) 12/02/01/21 02/01/21 Range/Units 05:17 06:12 06:12 WBC 12.2 H (4.5-11.0) K/mm3 MCH 24 L (28-32) pg RDW 15.7 H (13.2-15.2) % Hartley % (Auto) 11.5 H (0.0-7.3) % Hartley # (Auto) 1.4 H (0.0-0.8) K/mm3 Seg Neutrophils % 70.6 H (40.0-70.0) % Seg Neuts % (Manual) (40.0-70.0) % Monocytes % (Manual) (0.0-7.3) % Seg Neutrophils # 8.6 H (1.8-7.7) K/mm3 Seg Neutrophils # Man (1.8-7.7) K/mm3 Monocytes # (Manual) (0.0-0.8) K/mm3 D-Dimer (0-234) ng/mlDDU Chloride 107.7 H (98-107) mmol/L Carbon Dioxide 20 L (22-30) mmol/L Creatinine 0.5 L (0.6-1.2) mg/dL Glucose 230 H (65-100) mg/dL POC Glucose 217 H (70-105) mg/dL Calcium 8.2 L (8.4-10.2) mg/dL Coronavirus (PCR) (Negative) 02/01/21 02/01/21 02/01/21 Range/Units 09:04 10:54 11:13 WBC (4.5-11.0) K/mm3 MCH (28-32) pg RDW (13.2-15.2) % Hartley % (Auto) (0.0-7.3) % Hartley # (Auto) (0.0-0.8) K/mm3 Seg Neutrophils % (40.0-70.0) % Seg Neuts % (Manual) (40.0-70.0) % Monocytes % (Manual) (0.0-7.3) % Seg Neutrophils # (1.8-7.7) K/mm3 Seg Neutrophils # Man (1.8-7.7) K/mm3 Monocytes # (Manual) (0.0-0.8) K/mm3 D-Dimer 372.44 H (0-234) ng/mlDDU Chloride (98-107) mmol/L Carbon Dioxide (22-30) mmol/L Creatinine (0.6-1.2) mg/dL Glucose (65-100) mg/dL POC Glucose 145 H 231 H (70-105) mg/dL Calcium (8.4-10.2) mg/dL Coronavirus (PCR) (Negative) Assessment and Plan Cultures: SARS CoV2 PCR: Positive A/P: 25-year-old female with diabetes mellitus type 1 admitted with nausea, vomiting and DKA. Also found to be Covid positive. #COVID-19 infection: Asymptomatic from a respiratory standpoint Recs: Remains on room air, no therapeutics indicated from COVID-19 standpoint. ID will sign off. Sonia Sesay MD, FACP, [facility] O: [phone] F: [phone]
== END 2021-02-01 13:21 | disposition home or self-care (01) | DRG 637 ==
LOC: ED 07:09 → CC1 10:11 → 4A 01-31 01:30 → 3A 01-31 02:19
PROVIDERS: ADMIT Internal Medicine; ATTEND Internal Medicine
DX: E10.10 Type 1 diabetes mellitus with ketoacidosis without coma (principal); U07.1 COVID-19; R65.10 Systemic inflammatory response syndrome (SIRS) of non-infectious origin without acute organ dysfunction; E87.0 Hyperosmolality and hypernatremia; E87.5 Hyperkalemia; K21.9 Gastro-esophageal reflux disease without esophagitis; I10 Essential (primary) hypertension
CPT/HCPCS: 36415; 80048; 82728; 82805; 82947; 82962; 83615; 83735; 84100; 84145; 85007; 85025; 85379; 86140; 96374; 96375; G0378; J2354; J3480; Q0162; Q9967; J0360; J1650; J1815; J2270; J2405; J7030; U0003

== ENCOUNTER 2021-06-02 20:23 | Emergency (ER) | payer BC ==
[2021-06-02 20:54] VITALS: BP 166/106
[2021-06-02 21:35] LABS: Bilirubin,Urine NEG (Negative); Blood,Urine MOD (Negative); Color,Urine Red (Yellow); Urobilinogen,Urine < 2.0 mg/dL (<2.0)
[2021-06-02 21:39] LABS: Hematocrit 34.4 % (30.3-42.9); Mean Corpuscular HGB Conc 32 % (30-34); Mean Corpuscular Volume 76 fl (79-97); Platelet Count 284 K/mm3 (140-440); Red Blood Count 4.53 M/mm3 (3.65-5.03); Red Cell Distribution Width 17.3 % (13.2-15.2)
[2021-06-02 21:41] LABS: HCG Qualitative,Urine Negative (Negative)
[2021-06-02 21:42] LABS: RBC,Urine < 1.0 /HPF (0.0-6.0); WBC,Urine < 1.0 /HPF (0.0-6.0)
[2021-06-02 21:44] LABS: Alanine Aminotransferase 16 units/L (7-56); Albumin 4.8 g/dL (3.9-5); Blood Urea Nitrogen 10 mg/dL (7-17); Calcium 9.4 mg/dL (8.4-10.2); Hemolysis Index 16
[2021-06-02 21:47] LABS: BUN/Creatinine Ratio 20
[2021-06-02] MEDS ORDERED: FAMOTIDINE 20 MG/2 ML INJ IV ONE (22:49)
[2021-06-02] MEDS ORDERED: SODIUM CHLORIDE 0.9% 1000 ML 1,000 ML IV ONE (22:49)
[2021-06-02] MEDS ORDERED: PROCHLORPERAZINE EDISYLATE 10 MG/2 ML VIAL IV ONE (22:49)
[2021-06-02 23:46] LABS: Basophils % (Manual) 0 % (0.0-1.8); Eosinophils % (Manual) 0 % (0.0-4.3); Monocytes % (Manual) 0 % (0.0-7.3); Total Cells Counted 100
[2021-06-02 23:47] LABS: Hypochromasia 1+; Ovalocytes 1+; Platelet Estimate Consistent w Auto
--- NOTE | 2021-06-03 02:48 | Emergency Department Report ---
ED N/V/D HPI - General Chief complaint: Nausea/Vomiting/Diarrhea Stated complaint: VOMITING Source: patient Mode of arrival: Ambulatory Limitations: No Limitations - History of Present Illness Initial comments: Patient is a 35-year-old -Mauritanian female with a history of type 1 diabetes, gastroparesis and hypertension who presents to the ED with complaint of acute onset persistent intractable nausea and vomiting for the last 2 days. Patient states that she has not been able to keep anything down because of persistent nausea and vomiting. Patient also complains of mild epigastric pain due to vomiting. Patient denies dizziness, chest pain, shortness of breath, dysuria, urinary frequency and urgency, fever, chills, cough, sore throat, headache, vaginal bleeding or vaginal discharge. MD complaint: nausea, vomiting, abdominal pain (mild epigastric pain) -: Sudden, days(s) (2) Description of Vomiting: food contents, watery, bilious Associated Abdominal Pain: Yes (mild epigastric pain) Location: epigastric Radiation: none Severity: moderate Pain Scale: 5 Quality: aching, dull Consistency: constant Improves with: none Worsens with: eating, vomiting Context: possible food poisoning Associated Symptoms: denies other symptoms, loss of appetite, malaise, nausea/vomiting. denies: myalgias, chest pain, cough, diaphoresis, fever/chills, headaches, rash, dysuria, shortness of breath, syncope, weakness - Related Data Previous Rx's Medication Instructions Recorded Last Taken Type Insulin NPH, Human [NovoLIN N] 25 unit SUB-Q BIDDIAB #60 units 06/03/20 01/30/21 22:00 Rx Losartan [Cozaar] 25 mg PO QDAY #30 tablet 06/03/20 Unknown Rx SUMAtriptan succinate [SUMAtriptan 100 mg PO DAILY #9 tablet 12/18/20 Unknown Rx Succinate] Ascorbic Acid [Vitamin C] 500 mg PO QDAY #20 tablet 02/01/21 Unknown Rx Cholecalciferol (Vitamin D3) 5,000 unit PO DAILY #20 tablet 02/01/21 Unknown Rx [Vitamin D3] Zinc Sulfate 220 mg PO BID #14 capsule 02/01/21 Unknown Rx Dicyclomine [Bentyl] 20 mg PO Q6H PRN #30 tablet 06/03/21 Unknown Rx Famotidine [Pepcid] 20 mg PO BID #60 tablet 06/03/21 Unknown Rx Ondansetron [Zofran ODT TAB] 4 mg PO Q8HR PRN #20 tab.rapdis 06/03/21 Unknown Rx Pantoprazole [Protonix TAB] 40 mg PO DAILY #30 tablet 06/03/21 Unknown Rx Promethazine [Phenergan] 25 mg [place] Q6HR PRN #20 supp.rect 06/03/21 Unknown Rx Allergies Allergy/AdvReac Type Severity Reaction Status Date / Time No Known Allergies Allergy Verified 02/01/21 00:01 ED Review of Systems ROS: Stated complaint: VOMITING Other details as noted in HPI Constitutional: denies: chills, fever, weakness Eyes: denies: eye pain, eye discharge, vision change ENT: denies: ear pain, throat pain, congestion Respiratory: denies: cough, shortness of breath, wheezing Cardiovascular: denies: chest pain, palpitations Endocrine: no symptoms reported Gastrointestinal: abdominal pain (mild epigastric pain), nausea, vomiting. denies: diarrhea, constipation, hematemesis, hematochezia Genitourinary: denies: urgency, dysuria, discharge Musculoskeletal: denies: back pain, joint swelling, arthralgia Skin: denies: rash, lesions Neurological: denies: headache, weakness, paresthesias Psychiatric: denies: anxiety, depression Hematological/Lymphatic: denies: easy bleeding, easy bruising ED Past Medical Hx - Past Medical History Previous Medical History?: Yes Hx Hypertension: Yes Hx Congestive Heart Failure: No Hx Diabetes: Yes (TYPE 1) Hx Asthma: No Hx COPD: No Hx HIV: No Additional medical history: gastroparesis - Surgical History Past Surgical History?: Yes Additional Surgical History: mouth - Social History Smoking Status: Never Smoker - Medications Home Medications: Home Medications Medication Instructions Recorded Confirmed Last Taken Type Insulin NPH, Human [NovoLIN N] 25 unit SUB-Q BIDDIAB #60 units 06/03/20 02/01/21 01/30/21 22:00 Rx Losartan [Cozaar] 25 mg PO QDAY #30 tablet 06/03/20 Unknown Rx SUMAtriptan succinate [SUMAtriptan 100 mg PO DAILY #9 tablet 12/18/20 Unknown Rx Succinate] Ascorbic Acid [Vitamin C] 500 mg PO QDAY #20 tablet 02/01/21 Unknown Rx Cholecalciferol (Vitamin D3) 5,000 unit PO DAILY #20 tablet 02/01/21 Unknown Rx [Vitamin D3] Zinc Sulfate 220 mg PO BID #14 capsule 02/01/21 Unknown Rx Dicyclomine [Bentyl] 20 mg PO Q6H PRN #30 tablet 06/03/21 Unknown Rx Famotidine [Pepcid] 20 mg PO BID #60 tablet 06/03/21 Unknown Rx Ondansetron [Zofran ODT TAB] 4 mg PO Q8HR PRN #20 tab.rapdis 06/03/21 Unknown Rx Pantoprazole [Protonix TAB] 40 mg PO DAILY #30 tablet 06/03/21 Unknown Rx Promethazine [Phenergan] 25 mg [place] Q6HR PRN #20 supp.rect 06/03/21 Unknown Rx ED Physical Exam - General Limitations: No Limitations General appearance: alert, in no apparent distress - Head Head exam: Present: atraumatic, normocephalic, normal inspection - Eye Eye exam: Present: normal appearance, PERRL, EOMI Pupils: Present: normal accommodation - ENT ENT exam: Present: normal exam, normal orophraynx, mucous membranes moist, TM's normal bilaterally, normal external ear exam - Neck Neck exam: Present: normal inspection, full ROM. Absent: tenderness - Respiratory Respiratory exam: Present: normal lung sounds bilaterally. Absent: respiratory distress, wheezes, rales, rhonchi, chest wall tenderness, accessory muscle use, decreased breath sounds - Cardiovascular Cardiovascular Exam: Present: normal rhythm, tachycardia, normal heart sounds. Absent: systolic murmur, diastolic murmur, rubs, gallop - GI/Abdominal GI/Abdominal exam: Present: soft, normal bowel sounds. Absent: tenderness, guarding, rebound, hyperactive bowel sounds, hypoactive bowel sounds, mass - Extremities Exam Extremities exam: Present: normal inspection, full ROM, normal capillary refill. Absent: tenderness - Back Exam Back exam: Present: normal inspection, full ROM. Absent: tenderness, CVA tenderness (R), CVA tenderness (L), muscle spasm, paraspinal tenderness, vertebral tenderness - Neurological Exam Neurological exam: Present: alert, oriented X3, CN II-XII intact, normal gait, reflexes normal - Psychiatric Psychiatric exam: Present: normal affect, normal mood - Skin Skin exam: Present: warm, dry, intact, normal color. Absent: rash ED Course Vital Signs 06/02/21 20:50 Temperature 98.2 F Pulse Rate 103 H Respiratory 16 Rate Blood Pressure 166/106 O2 Sat by Pulse 99 Oximetry ED Medical Decision Making - Lab Data Result diagrams: 06/02/21 21:12 06/02/21 21:12 - Medical Decision Making This is a 35-year-old -[place]auritan[place] female with a history of type 1 diabetes, gastroparesis and hypertension who presents to the ED with complaint of acute onset persistent intractable nausea and vomiting for the last 2 days. Patient states that she has not been able to keep anything down because of persistent nausea and vomiting. Patient also complains of mild epigastric pain due to vomiting. In the ED, patient is alert and oriented x3 and is not in any distress. Lab test results were reviewed and showed hyperglycemia of 276 mg/dL and acute leukocytosis of 12,800. Patient was treated for nausea and vomiting and also received normal saline 1 L IV bolus x1. On reevaluation, patient nausea and vomiting resolved, patient passed oral fluid challenge in the ED. Patient was discharged home on medications and advised to maintain a clear liquid diet for 12 to 24 hours, take medications and follow-up with her primary care physician in 5 to 7 days for reevaluation or return to the ED immediately if symptoms get worse. - Differential Diagnosis GERD; Gastroparesis; Dehydration; DKA; Hyperglycemia Critical care attestation.: If time is entered above; I have spent that time in minutes in the direct care of this critically ill patient, excluding procedure time. ED Disposition Clinical Impression: Hyperglycemia due to type 1 diabetes mellitus, Nausea and vomiting in adult patient GERD (gastroesophageal reflux disease) Qualifiers: Esophagitis presence: esophagitis presence not specified Qualified Code(s): K21.9 - Gastro-esophageal reflux disease without esophagitis Disposition: 01 HOME / SELF CARE / HOMELESS Is pt being admited?: No Does the pt Need Aspirin: No Condition: Stable Instructions: Diabetes Mellitus Type 2 in Adults (ED), Hyperglycemia, Eas y-to-Read, Type 1 Diabetes Mellitus, Self Care, Adult, Nausea and Vomiting, Adult, [id number], Type 1 Diabetes Mellitus, Self Care, Adult, [id number], Gastroesophageal Reflux Disease, Adult, [id number] Additional Instructions: Reviewed and are all nonactionable except for hyperglycemia. Therefore maintain a clear liquid diet for the next 12 to 24 hours, take medications with food, drink plenty of fluids, follow-up with your primary care physician in 5 to 7 days for reevaluation. Return to the ED immediately if symptoms get worse. Prescriptions: Dicyclomine [Bentyl] 20 mg PO Q6H PRN #30 tablet PRN Reason: Abdominal pain Famotidine [Pepcid] 20 mg PO BID #60 tablet Promethazine [Phenergan] 25 mg [place] Q6HR PRN #20 supp.rect PRN Reason: Nausea And Vomiting Pantoprazole [Protonix TAB] 40 mg PO DAILY #30 tablet Ondansetron [Zofran ODT TAB] 4 mg PO Q8HR PRN #20 tab.rapdis PRN Reason: Nausea Referrals: ZE MILTON MD [Staff Physician] - 3-5 Days Time of Disposition: 02:48 Print Language: CROATIAN
== END 2021-06-03 03:27 | disposition home or self-care (01) ==
LOC: ED 20:23
DX: E10.65 Type 1 diabetes mellitus with hyperglycemia (principal); K21.9 Gastro-esophageal reflux disease without esophagitis; I10 Essential (primary) hypertension; Z79.899 Other long term (current) drug therapy
CPT/HCPCS: 36415; 80053; 81001; 81025; 82962; 83690; 85007; 85025; 96361; 96374; 96375; 99283; J0780; J3490; J7030

== ENCOUNTER 2021-07-06 13:07 | Inpatient (IN) | payer BC ==
[2021-07-06] MEDS ORDERED: ONDANSETRON 4 MG/2 ML INJ IV ONE ×2 (13:22→16:51)
[2021-07-06] MEDS ORDERED: SODIUM CHLORIDE 0.9% 1000 ML 1,000 ML IV ONE ×2 (13:22→15:42)
--- NOTE | 2021-07-06 13:25 | Emergency Department Report ---
HPI - General Chief Complaint: Weakness Time Seen by Provider: 07/06/21 13:20 - HPI HPI: Since yesterday the patient has been experiencing several episodes of clear emesis. She denies abdominal pain but relates generalized profound weakness and malaise. She is a diabetic that has been keeping up with her insulin she says that her last blood sugar this morning was 129. She denies fever chills diarrhea abdominal pain focal weakness headache or any other associated symptoms. Nothing makes it better nor worse and she has taken no medications for this. ED Past Medical Hx - Past Medical History Hx Hypertension: Yes Hx Congestive Heart Failure: No Hx Diabetes: Yes (TYPE 1) Hx Asthma: No Hx COPD: No Hx HIV: No Additional medical history: gastroparesis - Surgical History Past Surgical History?: No Additional Surgical History: mouth - Family History Family history: no significant - Social History Smoking Status: Never Smoker Substance Use Type: None - Medications Home Medications: Home Medications Medication Instructions Recorded Confirmed Last Taken Type Insulin NPH, Human [NovoLIN N] 25 unit SUB-Q BIDDIAB #60 units 06/03/20 02/01/21 01/30/21 22:00 Rx Losartan [Cozaar] 25 mg PO QDAY #30 tablet 06/03/20 Unknown Rx SUMAtriptan succinate [SUMAtriptan 100 mg PO DAILY #9 tablet 12/18/20 Unknown Rx Succinate] Ascorbic Acid [Vitamin C] 500 mg PO QDAY #20 tablet 02/01/21 Unknown Rx Cholecalciferol (Vitamin D3) 5,000 unit PO DAILY #20 tablet 02/01/21 Unknown Rx [Vitamin D3] Zinc Sulfate 220 mg PO BID #14 capsule 02/01/21 Unknown Rx Dicyclomine [Bentyl] 20 mg PO Q6H PRN #30 tablet 06/03/21 Unknown Rx Famotidine [Pepcid] 20 mg PO BID #60 tablet 06/03/21 Unknown Rx Ondansetron [Zofran ODT TAB] 4 mg PO Q8HR PRN #20 tab.rapdis 06/03/21 Unknown Rx Pantoprazole [Protonix TAB] 40 mg PO DAILY #30 tablet 06/03/21 Unknown Rx Promethazine [Phenergan] 25 mg [place] Q6HR PRN #20 supp.rect 06/03/21 Unknown Rx ED Review of Systems ROS: Stated complaint: WEAKNESS Other details as noted in HPI Other: All other systems reviewed and negative. Physical Exam - Physical Exam Vital Signs: Vital Signs 07/06/21 13:13 Temperature 96.4 F L Pulse Rate 105 H Respiratory 18 Rate Blood Pressure 106/59 [Right] O2 Sat by Pulse 99 Oximetry Physical Exam: Physical Exam: Constitutional: AAOX3. In moderate acute distress. No diaphoresis. Her breath smells like ketones. HENT: Normocephalic. Pupils equal and reactive. No throat edema or erythema. Neck: No neck rigidity or tenderness. Cardiovascular: Heart sounds: No murmur. Normal rate and regular rhythm. Pulses: Intact distal pulses. Lungs: No wheezing or rales. Chest wall: No tenderness. Abdominal: No distension. No mass/pulsatile mass. No abdominal tenderness, guarding nor rebound. Back: No CVA TTP. Musculoskeletal: Normal range of motion. No edema, No calf TTP. Skin: Warm and dry. Neurological: Alert and oriented to person, place, and time. Psychiatric: Mood and affect normal. Normal cognition and memory. Normal judgement. ED Course Vital Signs 07/06/21 13:13 Temperature 96.4 F L Pulse Rate 105 H Respiratory 18 Rate Blood Pressure 106/59 [Right] O2 Sat by Pulse 99 Oximetry - Reevaluation(s) Reevaluation #1: 07/06/21 13:42 EKG done interpreted at 1334 shows a rate of 98, normal. The rhythm is sinus rhythm. There are no ST or T wave normalities. Reevaluation #2: 07/06/21 16:28 The patient is really dry. She has not started producing urine yet. Her blood glucose was 376 but her acetone level was positive and her pH was 7.25 consistent with acute diabetic ketoacidosis. I went to put her on half-normal saline with potassium and give her some insulin and she will be admitted to the hospital. The ABG showed a low PO2 but she is saturating at 97% on room air and does not seem in respiratory distress. The x-ray suggested there could be some pneumonia some treating with antibiotics empirically. Total critical care time: 30 minutes. 07/06/21 16:29 ED Medical Decision Making - Lab Data Result diagrams: 07/06/21 13:50 07/06/21 13:50 Critical care attestation.: If time is entered above; I have spent that time in minutes in the direct care of this critically ill patient, excluding procedure time. ED Disposition Clinical Impression: Diabetic ketoacidosis Disposition: 02 [facility]ORT TERM [facility]OS[facility] Is pt being admited?: Yes Does the pt Need Aspirin: No Condition: Critical Instructions: Diabetic Ketoacidosis (ED)
[2021-07-06 14:09] LABS: Basophils % (Auto) 0.2 % (0.0-1.8); Hematocrit 37.7 % (30.3-42.9); Hemoglobin 11.9 gm/dl (10.1-14.3); Lymphocytes # (Auto) 1.5 K/mm3 (1.2-5.4); Lymphocytes % (Auto) 11.8 % (13.4-35.0); Mean Corpuscular HGB Conc 32 % (30-34); Mean Corpuscular Volume 77 fl (79-97); Monocytes # (Auto) 0.5 K/mm3 (0.0-0.8); Platelet Count 350 K/mm3 (140-440); Red Blood Count 4.89 M/mm3 (3.65-5.03); Red Cell Distribution Width 17.8 % (13.2-15.2)
[2021-07-06 14:28] LABS: Alanine Aminotransferase 18 units/L (7-56); Albumin 4.5 g/dL (3.9-5); Blood Urea Nitrogen 20 mg/dL (7-17); Calcium 9.7 mg/dL (8.4-10.2); Hemolysis Index 9
[2021-07-06 14:34] LABS: BUN/Creatinine Ratio 33
[2021-07-06] MEDS ORDERED: LIDOCAINE-MPF (1%) 10 MG/1 ML VIAL 5 ML INFILTRATI ONE (15:42)
[2021-07-06] MEDS ORDERED: cefTRIAXone/NS 1 GM/50 ML 1 GM/50 ML BAG IV SCH (16:00)
[2021-07-06 16:17] LABS: ABG Base Excess -12.4 mmol/L (-2.0-3.0); ABG HCO3 13.6 mmol/L (20.0-26.0); ABG Methemoglobin 0.6 % (0.0-1.5); ABG Oxygen Saturation 80.2 % (95.0-99.0); ABG PCO2 31.3 mm Hg; ABG PH 7.255 pH Units (7.350-7.450); ABG PO2 48.3 mm Hg (80.0-90.0)
[2021-07-06] MEDS ORDERED: INSULIN REGULAR, HUMAN 100 UNITS/1 ML IV ONE (16:27)
[2021-07-06] MEDS ORDERED: SODIUM BICARB 8.4% 50 MEQ/50 ML SYRINGE IV SCH (16:31)
--- NOTE | 2021-07-06 16:34 | History and Physical Report ---
History of Present Illness Chief complaint: I feel sick History of present illness: 35 YO Female with DM complicated by Gastroparesis, HTN, GERD presents to ED for evalution. Patient reports "I feel sick". Patient is lethargic with diminished cognition and provides only minimal history. Patient reports she has been feeling sick for the past several days and has not gotten out of bed. Patient transported to [facility] via private vehicle for further care and evaluation of the aforementioned symptoms. The patient was seen and evaluated in the emergency department. All lab and imaging studies reviewed. Patient found to have DKA, metabolic acidosis, volume depletion, as well as systemic inflammatory response syndrome. Patient also found to be hypotensive with a blood pressure of 84/48. Patient admitted to ICU and initiated on DKA protocol. Patient treated with IV fluid resuscitation therapy with mild improvement in symptoms. No reports of fever, chills, chest pain, palpitation, productive cough, skin rash, recent contact, known exposure to COVID-19. Prior admission on 01/30/2021 reviewed. All medication listed at time of admission has been reconciled. Advanced care planning conducted in ED. Patient is lethargic with diminished cognition but has a positive gag reflex and is able to protect her airway without difficulty. No further history is obtainable. Past History Past Medical History: diabetes, other (See HPI) Past Surgical History: No surgical history, Other (Reviewed) Social history: single. denies: smoking, alcohol abuse, prescription drug abuse Family history: diabetes, hypertension Medications and Allergies Allergies Allergy/AdvReac Type Severity Reaction Status Date / Time No Known Allergies Allergy Verified 07/06/21 13:17 Home Medications Medication Instructions Recorded Confirmed Last Taken Type Insulin NPH, Human [NovoLIN N] 25 unit SUB-Q BIDDIAB #60 units 06/03/20 02/01/21 01/30/21 22:00 Rx Losartan [Cozaar] 25 mg PO QDAY #30 tablet 06/03/20 Unknown Rx SUMAtriptan succinate [SUMAtriptan 100 mg PO DAILY #9 tablet 12/18/20 Unknown Rx Succinate] Ascorbic Acid [Vitamin C] 500 mg PO QDAY #20 tablet 02/01/21 Unknown Rx Cholecalciferol (Vitamin D3) 5,000 unit PO DAILY #20 tablet 02/01/21 Unknown Rx [Vitamin D3] Zinc Sulfate 220 mg PO BID #14 capsule 02/01/21 Unknown Rx Dicyclomine [Bentyl] 20 mg PO Q6H PRN #30 tablet 06/03/21 Unknown Rx Famotidine [Pepcid] 20 mg PO BID #60 tablet 06/03/21 Unknown Rx Ondansetron [Zofran ODT TAB] 4 mg PO Q8HR PRN #20 tab.rapdis 06/03/21 Unknown Rx Pantoprazole [Protonix TAB] 40 mg PO DAILY #30 tablet 06/03/21 Unknown Rx Promethazine [Phenergan] 25 mg [place] Q6HR PRN #20 supp.rect 06/03/21 Unknown Rx Active Meds: Active Medications Sodium Chloride (Nacl 0.9% 1000 Ml) 1,000 mls @ 999 mls/hr IV BOLUS ONE Stop: 07/06/21 16:42 Ceftriaxone Sodium (Rocephin/Ns 1 Gm/50 Ml) 1 gm in 50 mls @ 100 mls/hr IV ONCE NELLY; Protocol Stop: 07/06/21 23:00 Potassium Chloride 30 meq/ (Sodium Chloride) 1,015 mls @ 200 mls/hr IV DIRECT NELLY Sodium Chloride (Nacl 0.9% 1000 Ml) 3,000 mls @ 999 mls/hr IV BOLUS ONE Stop: 07/06/21 19:31 Sodium Bicarbonate (Sodium Bicarb 8.4% 50 Meq/50 Ml Syringe) 50 meq IV ONCE ONE Stop: 07/06/21 16:32 Review of Systems ROS unobtainable: due to mental status Exam - Constitutional Vitals: Temp Pulse Resp BP Pulse Ox 98 F 100 H 11 L 108/52 99 07/06/21 13:38 07/06/21 14:30 07/06/21 14:30 07/06/21 14:30 07/06/21 14:30 General appearance: Present: mild distress - EENT Eyes: Present: PERRL ENT: hearing intact, clear oral mucosa - Neck Neck: Present: supple, other (Oral mucosa dry) - Respiratory Respiratory effort: normal Respiratory: bilateral: diminished - Cardiovascular Rhythm: regular (Hypotensive, tachycardic) - Extremities Extremities: pulses symmetrical, No edema Peripheral Pulses: within normal limits - Abdominal General gastrointestinal: Present: soft, non-tender, non-distended, normal bowel sounds Female genitourinary: Present: normal - Integumentary Integumentary: Present: dry, clammy, decreased turgor - Musculoskeletal Musculoskeletal: generalized weakness - Psychiatric Psychiatric: no appropriate mood/affect, no intact judgment & insight, no memory intact - Neurologic Neurologic: CNII-XII intact, no focal deficits, moves all extremities, no gait normal Results - Labs CBC & Chem 7: 07/06/21 13:50 07/06/21 13:50 Labs: Abnormal lab results 07/06/21 07/06/21 07/06/21 Range/Units 13:50 13:50 13:50 WBC 12.9 H (4.5-11.0) K/mm3 MCV 77 L (79-97) fl MCH 24 L (28-32) pg RDW 17.8 H (13.2-15.2) % Lymph % (Auto) 11.8 L (13.4-35.0) % Seg Neutrophils % 84.0 H (40.0-70.0) % Seg Neutrophils # 10.8 H (1.8-7.7) K/mm3 ABG pH (7.350-7.450) pH Units ABG pO2 (80.0-90.0) mm Hg ABG HCO3 (20.0-26.0) mmol/L ABG O2 Saturation (95.0-99.0) % ABG Base Excess (-2.0-3.0) mmol/L ABG Hemoglobin (12.0-16.0) gm/dl Oxyhemoglobin (95.0-99.0) % Sodium 134 L (137-145) mmol/L Chloride 97.4 L (98-107) mmol/L Carbon Dioxide 11 L (22-30) mmol/L BUN 20 H (7-17) mg/dL Glucose 376 H (65-100) mg/dL Lactic Acid 3.70 H* (0.7-2.0) mmol/L 07/06/21 Range/Units 16:00 WBC (4.5-11.0) K/mm3 MCV (79-97) fl MCH (28-32) pg RDW (13.2-15.2) % Lymph % (Auto) (13.4-35.0) % Seg Neutrophils % (40.0-70.0) % Seg Neutrophils # (1.8-7.7) K/mm3 ABG pH 7.255 L (7.350-7.450) pH Units ABG pO2 48.3 L (80.0-90.0) mm Hg ABG HCO3 13.6 L (20.0-26.0) mmol/L ABG O2 Saturation 80.2 L (95.0-99.0) % ABG Base Excess -12.4 L (-2.0-3.0) mmol/L ABG Hemoglobin 10.9 L (12.0-16.0) gm/dl Oxyhemoglobin 78.2 L (95.0-99.0) % Sodium (137-145) mmol/L Chloride (98-107) mmol/L Carbon Dioxide (22-30) mmol/L BUN (7-17) mg/dL Glucose (65-100) mg/dL Lactic Acid (0.7-2.0) mmol/L Assessment and Plan - Patient Problems (1) DKA (diabetic ketoacidoses) Current Visit: Yes Status: Acute Qualifiers: Diabetes mellitus type: type 1 Plan to address problem: DKA protocol: Admit to ICU, IV fluid resuscitation therapy, insulin drip, monitor urine output every shift, monitor fluid balance, monitor anion gap, monitor serum potassium, potassium repletion as per protocol, serial BMP, The high probability of a clinically significant, sudden or life threatening deterioration of the [endocrine, neuro, renal] system(s) required my full and direct attention, intervention and personal management. The aggregate critical care time was [95] minutes. This time is in addition to time spent performing reported procedures but includes the following: [x] Data Review and interpretation [x] Patient assessment and monitoring of vital signs [x] Documentation [x] Medication orders and management (2) Volume depletion Current Visit: Yes Status: Acute Plan to address problem: BMP, IV fluid resuscitation therapy, repeat BMP in a.m., monitor fluid balance. (3) Metabolic acidosis Current Visit: Yes Status: Acute Plan to address problem: IV fluid resuscitation therapy, serial BMP, repeat BMP in a.m., IV bicarbonate therapy. (4) Metabolic encephalopathy Current Visit: Yes Status: Acute Plan to address problem: IV fluid resuscitation therapy, treat DKA, neuro check, seizure precautions. (5) SIRS (systemic inflammatory response syndrome) Current Visit: Yes Status: Acute Plan to address problem: CBC, urinalysis, empiric IV antibiotic therapy x1 dose. Patient is afebrile without an active source of infection at this time. (6) DVT prophylaxis Current Visit: Yes Status: Acute Plan to address problem: SCD to bilateral lower extremities while in bed (7) Advance care planning Current Visit: Yes Status: Acute Plan to address problem: Disease education data, care plan discussed, diagnosis discussed, prognosis discussed, patient is full code. +30 minutes. (8) Preventative health care Current Visit: Yes Status: Acute Plan to address problem: Patient counseled regarding medication compliance, carbohydrate counting, frequent small meals, and seeking medical care early for the aforementioned symptoms. +30 minutes. Patient counseled to take daily multivitamin with iron.
[2021-07-06] MEDS ORDERED: SODIUM CHLORIDE 0.9% 1000 ML 3,000 ML IV ONE (16:45)
[2021-07-06] MEDS ORDERED: ALBUTEROL 2.5 MG/3 ML NEBU IH PRN (16:56)
[2021-07-06] MEDS ORDERED: ACETAMINOPHEN 325 MG TAB PO PRN (16:56)
[2021-07-06] MEDS ORDERED: oxyCODONE /ACETAMINOPHEN 5-325MG TAB PO PRN (16:56)
[2021-07-06] MEDS ORDERED: HYDROmorphone 0.5 MG/0.5 ML INJ IV PRN (16:56)
[2021-07-06] MEDS ORDERED: INSULIN REGULAR, HUMAN 100 UNITS in SODIUM CHLORIDE 0.9% 99 ML IV SCH (17:00)
[2021-07-06] MEDS ORDERED: POTASSIUM CHLORIDE IV SCH (17:30)
[2021-07-06] MEDS ORDERED: SODIUM CHLORIDE 0.45% IV SCH (17:30)
[2021-07-06 18:32] LABS: Bilirubin,Urine NEG (Negative); Blood,Urine SM (Negative); Color,Urine Yellow (Yellow); Mucus,Urine FEW /HPF; Urobilinogen,Urine < 2.0 mg/dL (<2.0)
[2021-07-06 18:33] LABS: HCG Qualitative,Urine Negative (Negative)
--- NOTE | 2021-07-06 18:53 | Consultation ---
History of Present Illness Consult date: 07/06/21 Requesting physician: LILY LACY Reason for consult: other (DKA) History of present illness: 35 YO Female with DM complicated by Gastroparesis, HTN, GERD presents to ED for evaluation. Patient reports "I feel sick". Patient is lethargic with diminished cognition and provides only minimal history. Patient reports she has been feeling sick for the past several days and has not gotten out of bed. Patient transported to [facility] via private vehicle for further care and evaluation of the aforementioned symptoms. The patient was seen and evaluated in the emergency department. All lab and imaging studies reviewed. Patient found to have DKA, metabolic acidosis, volume depletion, as well as systemic inflammatory response syndrome. Patient also found to be hypotensive with a blood pressure of 84/48. Patient admitted to ICU and initiated on DKA protocol. Patient treated with IV fluid resuscitation therapy with mild improvement in symptoms. No reports of fever, chills, chest pain, palpitation, productive cough, skin rash, recent contact, known exposure to COVID-19. A critical care consult was placed. Patient seen and examined. Vitals, albs, medications, chart reviewed. She is resting in bed in the ICU, on an insulin infusion. She states she has had a migraine, associated with nausea and vomiting. Past History Past Medical History: diabetes, other (See HPI) Past Surgical History: No surgical history, Other (Reviewed) Social history: single. denies: smoking, alcohol abuse, prescription drug abuse Family history: diabetes, hypertension Medications and Allergies Allergies Allergy/AdvReac Type Severity Reaction Status Date / Time No Known Allergies Allergy Verified 07/06/21 13:17 Home Medications Medication Instructions Recorded Confirmed Last Taken Type Insulin NPH, Human [NovoLIN N] 21 units BID 07/07/21 07/07/21 07/05/21 History Insulin Regular, Human [Novolin R] 7 unit IJ BID 07/07/21 07/07/21 07/05/21 History Active Meds: Active Medications Acetaminophen (Acetaminophen 325 Mg Tab) 650 mg PO Q6H PRN PRN Reason: Pain MILD(1-3)/Fever >100.5/JUAREZ Albuterol (Albuterol 2.5 Mg/3 Ml Nebu) 2.5 mg IH Q3HRT PRN PRN Reason: Shortness Of Breath Hydromorphone HCl (Hydromorphone 0.5 Mg/0.5 Ml Inj) 0.5 mg IV Q23H PRN PRN Reason: Pain , Severe (7-10) Ceftriaxone Sodium (Rocephin/Ns 1 Gm/50 Ml) 1 gm in 50 mls @ 100 mls/hr IV ONCE NELLY; Protocol Stop: 07/06/21 23:00 Last Admin: 07/06/21 16:49 Dose: 100 mls/hr Potassium Chloride 30 meq/ (Sodium Chloride) 1,015 mls @ 200 mls/hr IV DIRECT NELLY Last Admin: 07/06/21 17:50 Dose: 200 mls/hr Sodium Chloride (Nacl 0.9% 1000 Ml) 3,000 mls @ 999 mls/hr IV BOLUS ONE Stop: 07/06/21 19:45 Last Admin: 07/06/21 16:36 Dose: 999 mls/hr Insulin Human Regular 100 (units/ Sodium Chloride) 100 mls @ 1 mls/hr IV TITR NELLY; Protocol Last Admin: 07/06/21 17:55 Dose: 1 units/hr, 1 mls/hr Oxycodone/Acetaminophen (Oxycodone /Acetaminophen 5-325mg Tab) 1 tab PO Q16H PRN PRN Reason: Pain, Moderate (4-6) Sodium Bicarbonate (Sodium Bicarb 8.4% 50 Meq/50 Ml Syringe) 50 meq IV ONCE NELLY Stop: 07/07/21 16:30 Last Admin: 07/06/21 16:49 Dose: 50 meq Sodium Chloride (Sodium Chloride 0.9% 10 Ml Flush Syringe) 10 ml IV BID NELLY Sodium Chloride (Sodium Chloride 0.9% 10 Ml Flush Syringe) 10 ml IV PRN PRN PRN Reason: LINE FLUSH Review of Systems Constitutional: no weight loss, no weight gain, no fever, no chills Cardiovascular: no chest pain, no orthopnea, no palpitations, no rapid/irregular heart beat Respiratory: no cough, no cough with sputum, no excessive sputum, no shortness of breath Gastrointestinal: abdominal pain, nausea, vomiting, no diarrhea, no constipation, no change in bowel habits Neurological: weakness, no head injury, no paralysis, no parathesias, no numbness, no seizures, no syncope Hematologic/Lymphatic: no easy bruising, no easy bleeding, no lymphadenopathy Physical Examination Vital signs: Vital Signs Pulse Ox 95 07/06/21 09:46 General appearance: appears uncomfortable, other (looks acutely ill) Eyes: non-icteric ENT: oropharynx dry Neck: supple, no lymphadenopathy, no JVD Effort: mildly labored Ascultation: Bilateral: clear, diminished breath sounds Cardiovascular: other (Tachycardia S1,S2) Gastrointestinal: normoactive bowel sounds, soft, non-tender, non-distended Integumentary: normal Extremities: no edema, pulses normal, cool non-focal exam, pupils equal and round mood appropriate, depressed Results - Laboratory Findings CBC and BMP: 07/08/21 05:42 07/08/21 05:42 ABG ABG pH 7.255 pH Units (7.350-7.450) L 07/06/21 16:00 ABG pCO2 31.3 mm Hg 07/06/21 16:00 ABG pO2 48.3 mm Hg (80.0-90.0) L 07/06/21 16:00 ABG O2 Saturation 80.2 % (95.0-99.0) L 07/06/21 16:00 Abnormal lab findings: Abnormal Labs 07/06/21 07/06/21 07/06/21 13:50 13:50 13:50 WBC 12.9 H MCV 77 L MCH 24 L RDW 17.8 H Lymph % (Auto) 11.8 L Seg Neutrophils % 84.0 H Seg Neutrophils # 10.8 H ABG pH ABG pO2 ABG HCO3 ABG O2 Saturation ABG Base Excess ABG Hemoglobin Oxyhemoglobin Sodium 134 L Chloride 97.4 L Carbon Dioxide 11 L BUN 20 H Glucose 376 H POC Glucose Lactic Acid 3.70 H* 07/06/21 07/06/21 16:00 17:54 WBC MCV MCH RDW Lymph % (Auto) Seg Neutrophils % Seg Neutrophils # ABG pH 7.255 L ABG pO2 48.3 L ABG HCO3 13.6 L ABG O2 Saturation 80.2 L ABG Base Excess -12.4 L ABG Hemoglobin 10.9 L Oxyhemoglobin 78.2 L Sodium Chloride Carbon Dioxide BUN Glucose POC Glucose 214 H Lactic Acid - Diagnostic Findings Chest x-ray: image reviewed (No acute cardiopulmoanry disease) Assessment and Plan DKA (Diabetic Ketoacidoses) Uncontrolled Diabetes Anion Gap Metabolic Acidosis Hyponatremia 2/2- Volume Depletion/Dehydration/Hyperglycemia H/o Gastroparesis Acute Metabolic Encephalopathy- resolved h/o Hypertension Anemia Continue with DKA protocol DKA protocol: Admit to ICU, IV fluid resuscitation therapy, insulin infusion with hourly accucheck- titrate insulin infusion per protocol, monitor urine output every shift, monitor fluid balance, monitor anion gap, monitor serum potassium, potassium repletion as per protocol, serial BMP, Keep NPO for now Once anion gap improves- will switch to weight based insulin therapy subcutaneously Volume resuscitation, electrolyte replacement per protocol Anti- emetics, symptoms management of nausea Maintain sleep- wake cycle Early ambulation, SCDs while in bed Hemodynamic monitoring- was hypotensive at presentation Hold home anti-hypertensive agents until the blood pressure improves Disease education data, care plan discussed, diagnosis discussed, prognosis discussed with patient at the bedside. Patient counseled regarding medication compliance, carbohydrate counting, frequent small meals, and seeking medical care early for the aforementioned symptoms. Discussed the need for close outpatient follow up with her primary MD. She may need Endocrinology in put into her care as an outpatient The high probability of a clinically significant, sudden or life threatening deterioration of the endocrine, cardiovascular system(s) required my full and direct attention, intervention and personal management. The aggregate critical care time was [33] minutes. This time is in addition to time spent performing reported procedures but includes the following: [x] Data Review and interpretation [x] Patient assessment and monitoring of vital signs [x] Documentation [x] Medication orders and management
--- NOTE | 2021-07-06 19:03 | XRay Report ---
CHEST 1 VIEW INDICATION: Chest Pain. COMPARISON: 12/18/2020 FINDINGS: SUPPORT DEVICES: None. HEART: Within normal limits. LUNGS/PLEURA: No acute air space or interstitial disease. ADDITIONAL FINDINGS: None. IMPRESSION: 1. No acute findings. Signer Name: Vance Reilly MD Signed: 07/06/2021 6:58 PM Workstation Name: [id number]
[2021-07-06 21:18] LABS: Blood Urea Nitrogen 17 mg/dL (7-17); Calcium 7.6 mg/dL (8.4-10.2); Hemolysis Index 3
[2021-07-06 21:20] LABS: Blood Urea Nitrogen 17 mg/dL (7-17); Calcium 7.6 mg/dL (8.4-10.2); Hemolysis Index 1
[2021-07-06 21:24] LABS: BUN/Creatinine Ratio 34
[2021-07-06 21:25] LABS: BUN/Creatinine Ratio 34
[2021-07-06] MEDS ORDERED: D5W/0.45% NACL/KCL 20 MEQ 20 MEQ/1,000 ML BAG IV SCH (22:00)
[2021-07-06 22:05] LABS: Blood Urea Nitrogen 17 mg/dL (7-17); Calcium 7.8 mg/dL (8.4-10.2); Hemolysis Index 4
[2021-07-06 22:09] LABS: BUN/Creatinine Ratio 34
[2021-07-07 02:48] LABS: Blood Urea Nitrogen 13 mg/dL (7-17); Calcium 7.9 mg/dL (8.4-10.2); Hemolysis Index 2
[2021-07-07 03:03] LABS: BUN/Creatinine Ratio 26
[2021-07-07] MEDS ORDERED: DEXTROSE 50% IN WATER (25GM) 50 ML SYRINGE IV PRN (08:31)
[2021-07-07] MEDS ORDERED: INSULIN LISPRO 100 UNIT/ML SUB-Q ONE (09:00)
[2021-07-07] MEDS: LOSARTAN 25 MG TAB PO SCH (09:03)
[2021-07-07] MEDS: PANTOPRAZOLE 40 MG TAB PO SCH (09:03)
[2021-07-07 09:19] LABS: Blood Urea Nitrogen 11 mg/dL (7-17); Calcium 7.9 mg/dL (8.4-10.2); Hemolysis Index 8
[2021-07-07 09:20] LABS: BUN/Creatinine Ratio 28
[2021-07-07] MEDS ORDERED: FAMOTIDINE 20 MG/2 ML INJ IV ONE (10:00)
[2021-07-07] MEDS ORDERED: SODIUM PHOSPHATE 30 MMOL in SODIUM CHLORIDE 0.9% 500 ML 500 ML IV ONE (11:00)
[2021-07-07] MEDS: INSULIN LISPRO 100 UNIT/ML SUB-Q SCH ×3 (11:29→21:16)
[2021-07-07 12:30] LABS: Blood Urea Nitrogen 10 mg/dL (7-17); Hemolysis Index 4
[2021-07-07 12:51] LABS: BUN/Creatinine Ratio 25
--- NOTE | 2021-07-07 12:55 | Progress Note ---
<ABBY SCHILLING - Last Filed: 07/07/21 17:13> Assessment and Plan Assessment and plan: This is a 35-year-old female with know past medical history of HTN, GERD, and Type 1 DM complicated by Gastroparesis admitted for DKA Hospital Course to Date: 07/07: Patient feeling better this am, denied any N/V, anion gap closed and BG improved. Will transitioned to SubQ insulin. Thorough discussion with patient at the bedside, she reported that she use to follow with s specialist at [place] for diabetes managment and was initially on Humalog and Lantus. But due to financial issues and she is currently buying her insulin from [employer] Humulin R and Novolog. However they are not working for her. She is now insured and would like to go back to Lantus and humalog. Patient counseled on regimen compliance and the need to follow up with her physical therapy technician and PCP for further management of her diabetes. Patient verbalized understanding understanding and agreed to current care plan. All questions and concerns were voiced at addressed at this time. Patient is stable for transfer to the floor once off insulin gtt, possible discharge tomorrow. Assessment and Plan #DKA (Diabetic Ketoacidoses) #Uncontrolled Diabetes #Anion Gap Metabolic Acidosis- resolved - Remains on DKA protocol - Anion gap closed and BG improved - Will transition patient to subQ insulin - 05/2020 hgb A1c- 14.5 - Per patient she is currently on Humilin R and Novolog and they are not working for - She request to resume old regimen humalog and Lantus since she is now insured - Consistent carbs diet - SSI ACHS and Lantus initiated - Continue to monitor electrolytes and repleted as needed #Hyponatremia 2/2 #Volume Depletion/Dehydration - Low Na resolved post IV hydration - Continue to monitor electrolytes and repleted as needed #Nausea/Vomiting- resolved #H/o Gastroparesis - most likely due to DKA - Denied N/V and abdominal pain - Continue PRN Antiemetic for N/V #Acute Metabolic Encephalopathy- resolved - most likely due to DKA - Patient is awake and alert this am, totally appropriate - Avoid benzodiazepine at this time - Maintenance of sleep-wake cycle #Hypertension - BP stable - Resume home meds - Continue blood pressure monitor per protocol - Maintain SBP less than 160 #GI/DVT Prophylaxis - PPI- Pepcid - SCD to bilateral lower extremities while in bed #Advance Care Planning - Disease education data, care plan discussed, diagnosis discussed, prognosis discussed with patient at the bedside. patient is full code. Patient verbalized understanding and agreed with current care plan #Preventative Health Care - Patient counseled regarding medication compliance, carbohydrate counting, frequent small meals, and seeking medical care early for the aforementioned symptoms The high probability of a clinically significant, sudden or life threatening deterioration of the [multiple] system(s) required my full and direct attention, intervention and personal management. The aggregate critical care time was [60] minutes. This time is in addition to time spent performing reported procedures but includes the following: [x] Data Review and interpretation [x] Patient assessment and monitoring of vital signs [x] Documentation [x] Medication orders and management Disposition Plan: Transfer to the floor Total Time Spent with Patient (Minutes): 60 History Interval history: Patient seen and examine at the bedside. Fully AAO, on RA, denied any pain nor any discomfort at this time. Remains on DKA protocol. DANIEL overnight Hospitalist Physical - Constitutional Vitals: Temp Pulse Resp BP Pulse Ox 98.3 F 92 H 10 L 133/90 100 07/07/21 08:00 07/07/21 12:00 07/07/21 12:00 07/07/21 12:00 07/07/21 12:00 General appearance: Present: no acute distress, obese - EENT Eyes: Present: PERRL, EOM intact ENT: hearing intact, clear oral mucosa - Neck Neck: Present: normal ROM - Respiratory Respiratory effort: normal Respiratory: bilateral: CTA - Cardiovascular Rhythm: regular Heart Sounds: Present: S1 & S2 - Extremities Extremities: no ischemia, pulses intact, pulses symmetrical Peripheral Pulses: within normal limits - Abdominal General gastrointestinal: soft, non-distended, normal bowel sounds - Integumentary Integumentary: Present: clear, warm, dry - Psychiatric Psychiatric: appropriate mood/affect, cooperative - Neurologic Neurologic: CNII-XII intact, moves all extremities - Allied Health Allied health notes reviewed: nursing Results - Labs CBC & Chem 7: 07/06/21 13:50 07/07/21 11:29 Labs: Laboratory Last Values WBC 12.9 K/mm3 (4.5-11.0) H 07/06/21 13:50 RBC 4.89 M/mm3 (3.65-5.03) 07/06/21 13:50 Hgb 11.9 gm/dl (10.1-14.3) 07/06/21 13:50 Hct 37.7 % (30.3-42.9) 07/06/21 13:50 MCV 77 fl (79-97) L 07/06/21 13:50 MCH 24 pg (28-32) L 07/06/21 13:50 MCHC 32 % (30-34) 07/06/21 13:50 RDW 17.8 % (13.2-15.2) H 07/06/21 13:50 Plt Count 350 K/mm3 (140-440) 07/06/21 13:50 Lymph % (Auto) 11.8 % (13.4-35.0) L 07/06/21 13:50 [place] % (Auto) 4.0 % (0.0-7.3) 07/06/21 13:50 Eos % (Auto) 0.0 % (0.0-4.3) 07/06/21 13:50 Baso % (Auto) 0.2 % (0.0-1.8) 07/06/21 13:50 Lymph # (Auto) 1.5 K/mm3 (1.2-5.4) 07/06/21 13:50 [place] # (Auto) 0.5 K/mm3 (0.0-0.8) 07/06/21 13:50 Eos # (Auto) 0.0 K/mm3 (0.0-0.4) 07/06/21 13:50 Baso # (Auto) 0.0 K/mm3 (0.0-0.1) 07/06/21 13:50 Seg Neutrophils % 84.0 % (40.0-70.0) H 07/06/21 13:50 Seg Neutrophils # 10.8 K/mm3 (1.8-7.7) H 07/06/21 13:50 ABG pH 7.255 pH Units (7.350-7.450) L 07/06/21 16:00 ABG pCO2 31.3 mm Hg 07/06/21 16:00 ABG pO2 48.3 mm Hg (80.0-90.0) L 07/06/21 16:00 ABG HCO3 13.6 mmol/L (20.0-26.0) L 07/06/21 16:00 ABG O2 Saturation 80.2 % (95.0-99.0) L 07/06/21 16:00 ABG O2 Content 11.9 (0.0-44) 07/06/21 16:00 ABG Base Excess -12.4 mmol/L (-2.0-3.0) L 07/06/21 16:00 ABG Hemoglobin 10.9 gm/dl (12.0-16.0) L 07/06/21 16:00 ABG Carboxyhemoglobin 1.9 % (0.0-5.0) 07/06/21 16:00 ABG Methemoglobin 0.6 % (0.0-1.5) 07/06/21 16:00 Oxyhemoglobin 78.2 % (95.0-99.0) L 07/06/21 16:00 FiO2 21 % 07/06/21 16:00 Sodium 138 mmol/L (137-145) 07/07/21 11:29 Potassium 4.0 mmol/L (3.6-5.0) 07/07/21 11:29 Chloride 109.7 mmol/L (98-107) H 07/07/21 11:29 Carbon Dioxide 20 mmol/L (22-30) L 07/07/21 11:29 Anion Gap 12 mmol/L 07/07/21 11:29 BUN 10 mg/dL (7-17) 07/07/21 11:29 Creatinine 0.4 mg/dL (0.6-1.2) L 07/07/21 11:29 Estimated GFR > 60 ml/min 07/07/21 11:29 BUN/Creatinine Ratio 25 % 07/07/21 11:29 Glucose 114 mg/dL (65-100) H 07/07/21 11:29 POC Glucose 153 mg/dL (70-105) H 07/07/21 10:05 Ketones Quantitative Small (Negative) 07/06/21 13:50 Lactic Acid 1.70 mmol/L (0.7-2.0) 07/06/21 20:18 Calcium 8.0 mg/dL (8.4-10.2) L 07/07/21 11:29 Phosphorus 1.80 mg/dL (2.5-4.5) L 07/07/21 08:33 Magnesium 2.00 mg/dL (1.7-2.3) 07/07/21 08:33 Total Bilirubin 0.70 mg/dL (0.1-1.2) 07/06/21 13:50 AST 19 units/L (5-40) 07/06/21 13:50 ALT 18 units/L (7-56) 07/06/21 13:50 Alkaline Phosphatase 122 units/L (35-129) 07/06/21 13:50 Total Protein 7.7 g/dL (6.3-8.2) 07/06/21 13:50 Albumin 4.5 g/dL (3.9-5) 07/06/21 13:50 Albumin/Globulin Ratio 1.4 % 07/06/21 13:50 Urine Color Yellow (Yellow) 07/06/21 Unknown Urine Turbidity Slightly-cloudy (Clear) 07/06/21 Unknown Urine pH 5.0 (5.0-7.0) 07/06/21 Unknown Ur Specific [place] 1.023 (1.003-1.030) 07/06/21 Unknown Urine Protein 100 mg/dl mg/dL (Negative) 07/06/21 Unknown Urine Glucose (UA) >=500 mg/dL (Negative) 07/06/21 Unknown Urine Ketones 80 mg/dL (Negative) 07/06/21 Unknown Urine Blood Sm (Negative) 07/06/21 Unknown Urine Nitrite Neg (Negative) 07/06/21 Unknown Urine Bilirubin Neg (Negative) 07/06/21 Unknown Urine Urobilinogen < 2.0 mg/dL (<2.0) 07/06/21 Unknown Ur Leukocyte Esterase Mod (Negative) 07/06/21 Unknown Urine WBC (Auto) 6.0 /HPF (0.0-6.0) 07/06/21 Unknown Urine RBC (Auto) 2.0 /HPF (0.0-6.0) 07/06/21 Unknown U Epithel Cells (Auto) 7.0 /HPF (0-13.0) 07/06/21 Unknown Urine Mucus Few /HPF 07/06/21 Unknown Urine Yeast (Budding) Few /HPF 07/06/21 Unknown Urine HCG, Qual Negative (Negative) 07/06/21 Unknown Koenig/IV: Voiding Method External Female Catheter Active Medications - Current Medications Current Medications: Generic Name Dose Route Start Last Admin Trade Name Freq PRN Reason Stop Dose Admin Acetaminophen 650 mg 07/06/21 16:56 Acetaminophen 325 Mg Tab PO Q6H PRN Pain MILD(1-3)/Fever >100.5/JUAREZ Albuterol 2.5 mg 07/06/21 16:56 Albuterol 2.5 Mg/3 Ml Nebu IH Q3HRT PRN Shortness Of Breath Dextrose 50 ml 07/07/21 08:31 Dextrose 50% In Water (25gm) 50 Ml Syringe IV Q30MIN PRN Hypoglycemia Protocol Hydromorphone HCl 0.5 mg 07/06/21 16:56 Hydromorphone 0.5 Mg/0.5 Ml Inj IV Q23H PRN Pain , Severe (7-10) Potassium Chloride/Dextrose/Sod Cl 20 meq in 1,000 mls @ 125 mls/hr 07/06/21 22:00 07/07/21 10:10 D5w/0.45% Nacl/Kcl 20 Meq IV 0 mls/hr DIRECT NELLY Infusion Sodium Phosphate 30 mmol/ 510 mls @ 125 mls/hr 07/07/21 11:00 07/07/21 10:35 Sodium Chloride IV 07/07/21 15:04 125 mls/hr ONCE ONE Administration Insulin Glargine 10 units 07/07/21 22:00 Insulin Glargine 100 Units/Ml SUB-Q QHS NELLY Insulin Human Lispro 0 unit 07/07/21 11:30 07/07/21 11:29 Insulin Lispro 100 Unit/Ml SUB-Q Not Given ACHS NELLY Protocol Losartan Potassium 25 mg 07/07/21 10:00 07/07/21 09:03 Losartan 25 Mg Tab PO 25 mg QDAY NELLY Administration Oxycodone/Acetaminophen 1 tab 07/06/21 16:56 Oxycodone /Acetaminophen 5-325mg Tab PO Q16H PRN Pain, Moderate (4-6) Pantoprazole Sodium 40 mg 07/07/21 10:00 07/07/21 09:03 Pantoprazole 40 Mg Tab PO 40 mg DAILY NELLY Administration Sodium Bicarbonate 50 meq 07/06/21 16:31 07/06/21 16:49 Sodium Bicarb 8.4% 50 Meq/50 Ml Syringe IV 07/07/21 16:30 50 meq ONCE NELLY Administration Sodium Chloride 10 ml 07/06/21 22:00 07/07/21 09:04 Sodium Chloride 0.9% 10 Ml Flush Syringe IV 10 ml BID NELLY Administration Sodium Chloride 10 ml 07/06/21 16:56 Sodium Chloride 0.9% 10 Ml Flush Syringe IV PRN PRN LINE FLUSH <NANCY BUNN - Last Filed: 07/08/21 07:42> Assessment and Plan Assessment and plan: I saw and evaluated the patient. I agree with the findings and the plan of care as documented in the Nurse Practitioner's~note, with the following corrections and additions. Hospitalist Physical - Constitutional Vitals: Temp Pulse Resp BP Pulse Ox 98 F 88 16 129/82 98 07/07/21 20:15 07/07/21 20:15 07/07/21 20:15 07/07/21 20:15 07/07/21 20:15 Results - Labs CBC & Chem 7: 07/08/21 05:42 07/08/21 05:42 Labs: Laboratory Last Values WBC 7.6 K/mm3 (4.5-11.0) 07/08/21 05:42 RBC 3.69 M/mm3 (3.65-5.03) 07/08/21 05:42 Hgb 8.8 gm/dl (10.1-14.3) L D 07/08/21 05:42 Hct 27.9 % (30.3-42.9) L D 07/08/21 05:42 MCV 76 fl (79-97) L 07/08/21 05:42 MCH 24 pg (28-32) L 07/08/21 05:42 MCHC 32 % (30-34) 07/08/21 05:42 RDW 17.8 % (13.2-15.2) H 07/08/21 05:42 Plt Count 269 K/mm3 (140-440) 07/08/21 05:42 Lymph % (Auto) 11.8 % (13.4-35.0) L 07/06/21 13:50 [place] % (Auto) 4.0 % (0.0-7.3) 07/06/21 13:50 Eos % (Auto) 0.0 % (0.0-4.3) 07/06/21 13:50 Baso % (Auto) 0.2 % (0.0-1.8) 07/06/21 13:50 Lymph # (Auto) 1.5 K/mm3 (1.2-5.4) 07/06/21 13:50 [place] # (Auto) 0.5 K/mm3 (0.0-0.8) 07/06/21 13:50 Eos # (Auto) 0.0 K/mm3 (0.0-0.4) 07/06/21 13:50 Baso # (Auto) 0.0 K/mm3 (0.0-0.1) 07/06/21 13:50 Seg Neutrophils % 84.0 % (40.0-70.0) H 07/06/21 13:50 Seg Neutrophils # 10.8 K/mm3 (1.8-7.7) H 07/06/21 13:50 ABG pH 7.255 pH Units (7.350-7.450) L 07/06/21 16:00 ABG pCO2 31.3 mm Hg 07/06/21 16:00 ABG pO2 48.3 mm Hg (80.0-90.0) L 07/06/21 16:00 ABG HCO3 13.6 mmol/L (20.0-26.0) L 07/06/21 16:00 ABG O2 Saturation 80.2 % (95.0-99.0) L 07/06/21 16:00 ABG O2 Content 11.9 (0.0-44) 07/06/21 16:00 ABG Base Excess -12.4 mmol/L (-2.0-3.0) L 07/06/21 16:00 ABG Hemoglobin 10.9 gm/dl (12.0-16.0) L 07/06/21 16:00 ABG Carboxyhemoglobin 1.9 % (0.0-5.0) 07/06/21 16:00 ABG Methemoglobin 0.6 % (0.0-1.5) 07/06/21 16:00 Oxyhemoglobin 78.2 % (95.0-99.0) L 07/06/21 16:00 FiO2 21 % 07/06/21 16:00 Sodium 135 mmol/L (137-145) L 07/08/21 05:42 Potassium 3.5 mmol/L (3.6-5.0) L 07/08/21 05:42 Chloride 107.7 mmol/L (98-107) H 07/08/21 05:42 Carbon Dioxide 21 mmol/L (22-30) L 07/08/21 05:42 Anion Gap 10 mmol/L 07/08/21 05:42 BUN 7 mg/dL (7-17) 07/08/21 05:42 Creatinine 0.4 mg/dL (0.6-1.2) L 07/08/21 05:42 Estimated GFR > 60 ml/min 07/08/21 05:42 BUN/Creatinine Ratio 18 % 07/08/21 05:42 Glucose 202 mg/dL (65-100) H 07/08/21 05:42 POC Glucose 212 mg/dL (70-105) H 07/07/21 20:17 Ketones Quantitative Small (Negative) 07/06/21 13:50 Lactic Acid 1.70 mmol/L (0.7-2.0) 07/06/21 20:18 Calcium 7.9 mg/dL (8.4-10.2) L 07/08/21 05:42 Phosphorus 2.40 mg/dL (2.5-4.5) L D 07/08/21 05:42 Magnesium 1.90 mg/dL (1.7-2.3) 07/08/21 05:42 Total Bilirubin 0.70 mg/dL (0.1-1.2) 07/06/21 13:50 AST 19 units/L (5-40) 07/06/21 13:50 ALT 18 units/L (7-56) 07/06/21 13:50 Alkaline Phosphatase 122 units/L (35-129) 07/06/21 13:50 Total Protein 7.7 g/dL (6.3-8.2) 07/06/21 13:50 Albumin 4.5 g/dL (3.9-5) 07/06/21 13:50 Albumin/Globulin Ratio 1.4 % 07/06/21 13:50 Urine Color Yellow (Yellow) 07/06/21 Unknown Urine Turbidity Slightly-cloudy (Clear) 07/06/21 Unknown Urine pH 5.0 (5.0-7.0) 07/06/21 Unknown Ur Specific [place] 1.023 (1.003-1.030) 07/06/21 Unknown Urine Protein 100 mg/dl mg/dL (Negative) 07/06/21 Unknown Urine Glucose (UA) >=500 mg/dL (Negative) 07/06/21 Unknown Urine Ketones 80 mg/dL (Negative) 07/06/21 Unknown Urine Blood Sm (Negative) 07/06/21 Unknown Urine Nitrite Neg (Negative) 07/06/21 Unknown Urine Bilirubin Neg (Negative) 07/06/21 Unknown Urine Urobilinogen < 2.0 mg/dL (<2.0) 07/06/21 Unknown Ur Leukocyte Esterase Mod (Negative) 07/06/21 Unknown Urine WBC (Auto) 6.0 /HPF (0.0-6.0) 07/06/21 Unknown Urine RBC (Auto) 2.0 /HPF (0.0-6.0) 07/06/21 Unknown U Epithel Cells (Auto) 7.0 /HPF (0-13.0) 07/06/21 Unknown Urine Mucus Few /HPF 07/06/21 Unknown Urine Yeast (Budding) Few /HPF 07/06/21 Unknown Urine HCG, Qual Negative (Negative) 07/06/21 Unknown Koenig/IV: Voiding Method Toilet Active Medications - Current Medications Current Medications: Generic Name Dose Route Start Last Admin Trade Name Freq PRN Reason Stop Dose Admin Acetaminophen 650 mg 07/06/21 16:56 Acetaminophen 325 Mg Tab PO Q6H PRN Pain MILD(1-3)/Fever >100.5/JUAREZ Albuterol 2.5 mg 07/06/21 16:56 Albuterol 2.5 Mg/3 Ml Nebu IH Q3HRT PRN Shortness Of Breath Dextrose 50 ml 07/07/21 08:31 Dextrose 50% In Water (25gm) 50 Ml Syringe IV Q30MIN PRN Hypoglycemia Protocol Insulin Glargine 15 units 07/07/21 22:00 07/07/21 21:17 Insulin Glargine 100 Units/Ml SUB-Q 15 units QHS NELLY Administration Insulin Human Lispro 0 unit 07/07/21 11:30 07/07/21 21:16 Insulin Lispro 100 Unit/Ml SUB-Q 4 unit ACHS NELLY Administration Protocol Losartan Potassium 25 mg 07/07/21 10:00 07/07/21 09:03 Losartan 25 Mg Tab PO 25 mg QDAY NELLY Administration Oxycodone/Acetaminophen 1 tab 07/06/21 16:56 Oxycodone /Acetaminophen 5-325mg Tab PO Q16H PRN Pain, Moderate (4-6) Pantoprazole Sodium 40 mg 07/07/21 10:00 07/07/21 09:03 Pantoprazole 40 Mg Tab PO 40 mg DAILY NELLY Administration Sodium Chloride 10 ml 07/06/21 22:00 07/07/21 21:16 Sodium Chloride 0.9% 10 Ml Flush Syringe IV 10 ml BID NELLY Administration Sodium Chloride 10 ml 07/06/21 16:56 Sodium Chloride 0.9% 10 Ml Flush Syringe IV PRN PRN LINE FLUSH
[2021-07-07] MEDS ORDERED: INSULIN NPH, HUMAN 100 UNIT/1 ML SUB-Q SCH (18:00)
--- NOTE | 2021-07-07 19:22 | Progress Note ---
Assessment and Plan DKA (Diabetic Ketoacidoses) Uncontrolled Diabetes Anion Gap Metabolic Acidosis Hyponatremia 2/2- Volume Depletion/Dehydration/Hyperglycemia H/o Gastroparesis Acute Metabolic Encephalopathy- resolved h/o Hypertension Anemia Replete potassium, keep K>3.5 Weight based subcut insulin, steady carb diet Patient had challenges with her health insurance coverage, which impacted her ability to see any physician. Will like to get a local PMD while she tries to call [place] for the specialist care Anti- emetics, symptoms management of nausea Maintain sleep- wake cycle Increase activity Discharge planning per primary service Discussed with primer service Patient counseled regarding medication compliance, carbohydrate counting, frequent small meals, and seeking medical care early for the aforementioned symptoms. Subjective Date of service: 07/07/21 Interval history: This is a 35-year-old female with know past medical history of HTN, GERD, and Type 1 DM complicated by Gastroparesis admitted to the ICU in [facility] Hospital Course to Date: Patient feeling better this am, denied any N/V, anion gap closed and BG improved. No fevers, no chills. No diarrhea Seen and examined Vitals, labs, medications, chart reviewed. Objective Vital Signs - 12hr 07/07/21 07/07/21 07/07/21 08:00 09:00 09:03 Temperature 98.3 F Pulse Rate 89 90 93 H Pulse Rate [ 92 H From Monitor] Respiratory 11 L 10 L Rate Blood Pressure 129/80 137/91 137/81 O2 Sat by Pulse 98 Oximetry 07/07/21 07/07/21 07/07/21 10:00 11:00 11:10 Temperature Pulse Rate 87 89 Pulse Rate [ From Monitor] Respiratory 11 L 9 L Rate Blood Pressure 110/67 126/87 O2 Sat by Pulse 99 99 Oximetry 07/07/21 07/07/21 07/07/21 11:57 11:58 12:00 Temperature 97.6 F Pulse Rate 93 H 92 H Pulse Rate [ 93 H From Monitor] Respiratory 18 10 L Rate Blood Pressure 133/90 O2 Sat by Pulse 99 100 Oximetry 07/07/21 07/07/21 07/07/21 13:00 14:00 15:11 Temperature Pulse Rate 93 H 89 Pulse Rate [ 93 H From Monitor] Respiratory 12 13 Rate Blood Pressure 132/87 136/95 O2 Sat by Pulse 99 99 Oximetry Constitutional: no acute distress, alert Eyes: non-icteric ENT: oropharynx moist Neck: supple, no lymphadenopathy Effort: normal Ascultation: Bilateral: clear Cardiovascular: regular rate and rhythm, other (S1,S2) Gastrointestinal: normoactive bowel sounds, soft, non-tender, non-distended Integumentary: normal Extremities: no cyanosis, no edema Neurologic: normal mental status, non-focal exam, pupils equal and round, motor strength normal and Psychiatric: mood appropriate, affect normal CBC and BMP: 07/08/21 05:42 07/08/21 05:42 ABG, PT/INR, D-dimer: ABG ABG pH 7.255 pH Units (7.350-7.450) L 07/06/21 16:00 ABG pCO2 31.3 mm Hg 07/06/21 16:00 ABG pO2 48.3 mm Hg (80.0-90.0) L 07/06/21 16:00 ABG O2 Saturation 80.2 % (95.0-99.0) L 07/06/21 16:00 Abnormal lab findings: Abnormal Labs 07/06/21 07/06/21 07/06/21 13:50 13:50 13:50 WBC 12.9 H MCV 77 L MCH 24 L RDW 17.8 H Lymph % (Auto) 11.8 L Seg Neutrophils % 84.0 H Seg Neutrophils # 10.8 H ABG pH ABG pO2 ABG HCO3 ABG O2 Saturation ABG Base Excess ABG Hemoglobin Oxyhemoglobin Sodium 134 L Chloride 97.4 L Carbon Dioxide 11 L BUN 20 H Creatinine Glucose 376 H POC Glucose Lactic Acid 3.70 H* Calcium Phosphorus 07/06/21 07/06/21 07/06/21 16:00 17:54 18:49 WBC MCV MCH RDW Lymph % (Auto) Seg Neutrophils % Seg Neutrophils # ABG pH 7.255 L ABG pO2 48.3 L ABG HCO3 13.6 L ABG O2 Saturation 80.2 L ABG Base Excess -12.4 L ABG Hemoglobin 10.9 L Oxyhemoglobin 78.2 L Sodium Chloride Carbon Dioxide BUN Creatinine Glucose POC Glucose 214 H 211 H Lactic Acid Calcium Phosphorus 07/06/21 07/06/21 07/06/21 19:54 20:18 20:18 WBC MCV MCH RDW Lymph % (Auto) Seg Neutrophils % Seg Neutrophils # ABG pH ABG pO2 ABG HCO3 ABG O2 Saturation ABG Base Excess ABG Hemoglobin Oxyhemoglobin Sodium Chloride 112.9 H 112.4 H Carbon Dioxide 16 L 16 L BUN Creatinine 0.5 L 0.5 L Glucose 175 H 174 H POC Glucose 181 H Lactic Acid Calcium 7.6 L D 7.6 L Phosphorus 07/06/21 07/06/21 07/07/21 20:56 20:58 02:20 WBC MCV MCH RDW Lymph % (Auto) Seg Neutrophils % Seg Neutrophils # ABG pH ABG pO2 ABG HCO3 ABG O2 Saturation ABG Base Excess ABG Hemoglobin Oxyhemoglobin Sodium Chloride 110.1 H 112.6 H Carbon Dioxide 15 L 19 L BUN Creatinine 0.5 L 0.5 L Glucose 178 H 164 H POC Glucose 139 H Lactic Acid Calcium 7.8 L 7.9 L Phosphorus 07/07/21 07/07/21 07/07/21 08:33 08:33 10:05 WBC MCV MCH RDW Lymph % (Auto) Seg Neutrophils % Seg Neutrophils # ABG pH ABG pO2 ABG HCO3 ABG O2 Saturation ABG Base Excess ABG Hemoglobin Oxyhemoglobin Sodium Chloride 110.7 H Carbon Dioxide 20 L BUN Creatinine 0.4 L Glucose 153 H POC Glucose 153 H Lactic Acid Calcium 7.9 L Phosphorus 1.80 L 07/07/21 07/07/21 07/07/21 11:25 11:29 16:16 WBC MCV MCH RDW Lymph % (Auto) Seg Neutrophils % Seg Neutrophils # ABG pH ABG pO2 ABG HCO3 ABG O2 Saturation ABG Base Excess ABG Hemoglobin Oxyhemoglobin Sodium Chloride 109.7 H Carbon Dioxide 20 L BUN Creatinine 0.4 L Glucose 114 H POC Glucose 115 H 318 H Lactic Acid Calcium 8.0 L Phosphorus Allied health notes reviewed: nursing
[2021-07-07] MEDS ORDERED: INSULIN GLARGINE 100 UNITS/ML SUB-Q SCH ×2 (22:00)
[2021-07-08 00:10] LABS: BUN/Creatinine Ratio 20; Blood Urea Nitrogen 8 mg/dL (7-17); Calcium 8.2 mg/dL (8.4-10.2); Hemolysis Index 0
[2021-07-08 06:25] LABS: Blood Urea Nitrogen 7 mg/dL (7-17); Calcium 7.9 mg/dL (8.4-10.2); Hemolysis Index 0
[2021-07-08 06:36] LABS: BUN/Creatinine Ratio 18
[2021-07-08 07:17] LABS: Hematocrit 27.9 % (30.3-42.9); Hemoglobin 8.8 gm/dl (10.1-14.3); Mean Corpuscular HGB Conc 32 % (30-34); Mean Corpuscular Volume 76 fl (79-97); Platelet Count 269 K/mm3 (140-440); Red Blood Count 3.69 M/mm3 (3.65-5.03); Red Cell Distribution Width 17.8 % (13.2-15.2)
--- NOTE | 2021-07-08 09:12 | Progress Note ---
Assessment and Plan 35 YO Female with DM complicated by Gastroparesis, HTN, GERD presents to ED for evalution. Patient is lethargic with diminished cognition and provides only minimal history. Patient reports she has been feeling sick for the past several days and has not gotten out of bed. Patient transported to [facility] via private vehicle for further care and evaluation of the aforementioned symptoms. Patient found to have DKA, metabolic acidosis, volume depletion, as well as systemic inflammatory response syndrome. Patient also found to be hypotensive with a blood pressure of 84/48. Patient admitted to ICU and initiated on DKA protocol. Patient treated with IV fluid resuscitation therapy with mild improvement in symptoms. No reports of fever, chills, chest pain, palpitation, productive cough, skin rash, recent contact, known exposure to COVID-19. Patient is lethargic with diminished cognition but has a positive gag reflex and is able to protect her airway without difficulty. Patients condition improved. Patient transfered to medical floor. Patient alert, awake and walking in the room. Patient has no history of smoking, alcohol or drug abuse. Works in [employer]. Not . No children. No known drug allergies. Patient is on room air. O2 saturation 98%. No complaint of chest pain, shortness of breath or cough. Patient afebrile. No leukocytosis. Blood pressure 131/81, Pulse 93, respirations 12. Chest xray 07/06/21 reported No acute findings. Patient is on S/C Insulin, Protonix and albuterol inhaler prn for shortness of breath. - Patient Problems (1) DKA (diabetic ketoacidoses) Status: Acute Qualifiers: Diabetes mellitus type: type 1 Plan to address problem: Management as per primary care. (2) Metabolic encephalopathy Status: Acute Plan to address problem: Improved. Management as primary care. (3) Volume depletion Status: Acute Plan to address problem: Patient given I/V fluids. (4) COVID-19 virus infection Status: Acute Plan to address problem: History of COVID 19 infection in the past. (5) Hypertension Status: Acute Plan to address problem: Management as per primary care. Subjective Date of service: 07/08/21 Interval history: 35 YO Female with DM complicated by Gastroparesis, HTN, GERD presents to ED for evalution. Patient is lethargic with diminished cognition and provides only minimal history. Patient reports she has been feeling sick for the past several days and has not gotten out of bed. Patient transported to [facility] via private vehicle for further care and evaluation of the aforementioned symptoms. Patient found to have DKA, metabolic acidosis, volume depletion, as well as systemic inflammatory response syndrome. Patient also found to be hypotensive with a blood pressure of 84/48. Patient admitted to ICU and initiated on DKA protocol. Patient treated with IV fluid resuscitation therapy with mild improvement in symptoms. No reports of fever, chills, chest pain, palpitation, productive cough, skin rash, recent contact, known exposure to COVID-19. Patient is lethargic with diminished cognition but has a positive gag reflex and is able to protect her airway without difficulty. Patients condition improved. Patient transfered to medical floor. Patient alert, awake and walking in the room. Patient has no history of smoking, alcohol or drug abuse. Works in [employer]. Not . No children. No known drug allergies. Patient is on room air. O2 saturation 98%. No complaint of chest pain, shortness of breath or cough. Patient afebrile. No leukocytosis. Blood pressure 131/81, Pulse 93, respirations 12. Chest xray 07/06/21 reported No acute findings. Patient is on S/C Insulin, Protonix and albuterol inhaler prn for shortness of breath. Objective Constitutional: no acute distress, alert Eyes: non-icteric ENT: oropharynx moist Neck: supple, no lymphadenopathy Effort: normal Ascultation: Bilateral: diminished breath sounds Cardiovascular: regular rate and rhythm, other (S1,S2) Gastrointestinal: normoactive bowel sounds, soft, non-tender, non-distended Integumentary: normal Extremities: no cyanosis, no edema Neurologic: normal mental status, non-focal exam, pupils equal and round, motor strength normal and Psychiatric: mood appropriate, affect normal CBC and BMP: 07/08/21 05:42 07/08/21 05:42 ABG, PT/INR, D-dimer: ABG ABG pH 7.255 pH Units (7.350-7.450) L 07/06/21 16:00 ABG pCO2 31.3 mm Hg 07/06/21 16:00 ABG pO2 48.3 mm Hg (80.0-90.0) L 07/06/21 16:00 ABG O2 Saturation 80.2 % (95.0-99.0) L 07/06/21 16:00 Abnormal lab findings: Abnormal Labs 07/06/21 07/06/21 07/06/21 13:50 13:50 13:50 WBC 12.9 H Hgb Hct MCV 77 L MCH 24 L RDW 17.8 H Lymph % (Auto) 11.8 L Seg Neutrophils % 84.0 H Seg Neutrophils # 10.8 H ABG pH ABG pO2 ABG HCO3 ABG O2 Saturation ABG Base Excess ABG Hemoglobin Oxyhemoglobin Sodium 134 L Potassium Chloride 97.4 L Carbon Dioxide 11 L BUN 20 H Creatinine Glucose 376 H POC Glucose Lactic Acid 3.70 H* Calcium Phosphorus 07/06/21 07/06/21 07/06/21 16:00 17:54 18:49 WBC Hgb Hct MCV MCH RDW Lymph % (Auto) Seg Neutrophils % Seg Neutrophils # ABG pH 7.255 L ABG pO2 48.3 L ABG HCO3 13.6 L ABG O2 Saturation 80.2 L ABG Base Excess -12.4 L ABG Hemoglobin 10.9 L Oxyhemoglobin 78.2 L Sodium Potassium Chloride Carbon Dioxide BUN Creatinine Glucose POC Glucose 214 H 211 H Lactic Acid Calcium Phosphorus 07/06/21 07/06/21 07/06/21 19:54 20:18 20:18 WBC Hgb Hct MCV MCH RDW Lymph % (Auto) Seg Neutrophils % Seg Neutrophils # ABG pH ABG pO2 ABG HCO3 ABG O2 Saturation ABG Base Excess ABG Hemoglobin Oxyhemoglobin Sodium Potassium Chloride 112.9 H 112.4 H Carbon Dioxide 16 L 16 L BUN Creatinine 0.5 L 0.5 L Glucose 175 H 174 H POC Glucose 181 H Lactic Acid Calcium 7.6 L D 7.6 L Phosphorus 07/06/21 07/06/21 07/07/21 20:56 20:58 02:20 WBC Hgb Hct MCV MCH RDW Lymph % (Auto) Seg Neutrophils % Seg Neutrophils # ABG pH ABG pO2 ABG HCO3 ABG O2 Saturation ABG Base Excess ABG Hemoglobin Oxyhemoglobin Sodium Potassium Chloride 110.1 H 112.6 H Carbon Dioxide 15 L 19 L BUN Creatinine 0.5 L 0.5 L Glucose 178 H 164 H POC Glucose 139 H Lactic Acid Calcium 7.8 L 7.9 L Phosphorus 07/07/21 07/07/21 07/07/21 08:33 08:33 10:05 WBC Hgb Hct MCV MCH RDW Lymph % (Auto) Seg Neutrophils % Seg Neutrophils # ABG pH ABG pO2 ABG HCO3 ABG O2 Saturation ABG Base Excess ABG Hemoglobin Oxyhemoglobin Sodium Potassium Chloride 110.7 H Carbon Dioxide 20 L BUN Creatinine 0.4 L Glucose 153 H POC Glucose 153 H Lactic Acid Calcium 7.9 L Phosphorus 1.80 L 07/07/21 07/07/21 07/07/21 11:25 11:29 16:16 WBC Hgb Hct MCV MCH RDW Lymph % (Auto) Seg Neutrophils % Seg Neutrophils # ABG pH ABG pO2 ABG HCO3 ABG O2 Saturation ABG Base Excess ABG Hemoglobin Oxyhemoglobin Sodium Potassium Chloride 109.7 H Carbon Dioxide 20 L BUN Creatinine 0.4 L Glucose 114 H POC Glucose 115 H 318 H Lactic Acid Calcium 8.0 L Phosphorus 07/07/21 07/07/21 07/08/21 20:17 23:09 05:42 WBC Hgb 8.8 L D Hct 27.9 L D MCV 76 L MCH 24 L RDW 17.8 H Lymph % (Auto) Seg Neutrophils % Seg Neutrophils # ABG pH ABG pO2 ABG HCO3 ABG O2 Saturation ABG Base Excess ABG Hemoglobin Oxyhemoglobin Sodium Potassium Chloride 107.4 H Carbon Dioxide 21 L BUN Creatinine 0.4 L Glucose 139 H POC Glucose 212 H Lactic Acid Calcium 8.2 L Phosphorus 07/08/21 07/08/21 05:42 07:43 WBC Hgb Hct MCV MCH RDW Lymph % (Auto) Seg Neutrophils % Seg Neutrophils # ABG pH ABG pO2 ABG HCO3 ABG O2 Saturation ABG Base Excess ABG Hemoglobin Oxyhemoglobin Sodium 135 L Potassium 3.5 L Chloride 107.7 H Carbon Dioxide 21 L BUN Creatinine 0.4 L Glucose 202 H POC Glucose 163 H Lactic Acid Calcium 7.9 L Phosphorus 2.40 L D Chest x-ray: report reviewed, image reviewed Additional Studies: CHEST 1 VIEW 07/06/21 INDICATION: Chest Pain. COMPARISON: 12/18/2020 FINDINGS: SUPPORT DEVICES: None. HEART: Within normal limits. LUNGS/PLEURA: No acute air space or interstitial disease. ADDITIONAL FINDINGS: None. IMPRESSION: 1. No acute findings. Allied health notes reviewed: nursing
[2021-07-08] MEDS: PANTOPRAZOLE 40 MG TAB PO SCH (09:26)
[2021-07-08] MEDS: INSULIN LISPRO 100 UNIT/ML SUB-Q SCH (09:27)
[2021-07-08] MEDS: LOSARTAN 25 MG TAB PO SCH (09:30)
[2021-07-08 09:36] VITALS: BP 152/94
[2021-07-08] MEDS ORDERED: FAMOTIDINE 20 MG TAB PO SCH (10:00)
--- NOTE | 2021-07-08 12:08 | Discharge Summary ---
Providers - Providers Date of Admission: 07/06/21 17:56 Date of discharge: 07/08/21 Attending physician: KUN CEDILLO 07/06/21 18:51 Consult to Physician [CONS] Routine Comment: Consulting Provider: MARCIA MOTT Physician Instructions: Reason For Exam: critical care Primary care physician: LOAD MANAGER Hospitalization Reason for admission: DKA Condition: Critical Hospital course: This is a 35-year-old female with know past medical history of HTN, GERD, and Type 1 DM complicated by Gastroparesis admitted for DKA, uncontrolled diabetes mellitus type 2, hyponatremia, volume nutrition/dehydration, gastroparesis exacerbation, metabolic encephalopathy and hypertension. Hospital course by disease process below #DKA (Diabetic Ketoacidoses) #Uncontrolled Diabetes #Anion Gap Metabolic Acidosis- resolved - Remains on DKA protocol - Anion gap closed and BG improved - Will transition patient to subQ insulin - 05/2020 hgb A1c- 14.5 - Per patient she is currently on Humilin R and Novolog and they are not working for - She request to resume old regimen humalog and Lantus since she is now insured - Consistent carbs diet - SSI ACHS and Lantus initiated - Continue to monitor electrolytes and repleted as needed #Hyponatremia 2/2 #Volume Depletion/Dehydration - Low Na resolved post IV hydration - Continue to monitor electrolytes and repleted as needed #Nausea/Vomiting- resolved #H/o Gastroparesis - most likely due to DKA - Denied N/V and abdominal pain - Continue PRN Antiemetic for N/V #Acute Metabolic Encephalopathy- resolved - most likely due to DKA - Patient is awake and alert this am, totally appropriate - Avoid benzodiazepine at this time - Maintenance of sleep-wake cycle #Hypertension - BP stable - Resume home meds - Continue blood pressure monitor per protocol - Maintain SBP less than 160 Hospital Course by Date: 07/07: Patient feeling better this am, denied any N/V, anion gap closed and BG improved. Will transitioned to SubQ insulin. Thorough discussion with patient at the bedside, she reported that she use to follow with s specialist at [place] for diabetes managment and was initially on Humalog and Lantus. But due to financial issues and she is currently buying her insulin from [email or web address] Humulin R and Novolog. However they are not working for her. She is now insured and would like to go back to Lantus and humalog. Patient counseled on regimen compliance and the need to follow up with her smoking tobacco packing machine hand and PCP for further management of her diabetes. Patient verbalized understanding understanding and agreed to current care plan. All questions and concerns were voiced at addressed at this time. Patient is stable for transfer to the floor once off insulin gtt, possible discharge tomorrow. 07/08: Patient reportedly left AMA before being seen this morning. Dedicated discharge time 32 minutes Disposition: LEFT AGAINST MEDICAL ADVICE Final Discharge Diagnosis (Prints w/discharge instructions): DKA, uncontrolled diabetes mellitus type 2, hyponatremia, volume nutrition/dehydration, gastroparesis exacerbation, metabolic encephalopathy and hypertension. Core Measure Documentation - Palliative Care Palliative Care/ Comfort Measures: Not Applicable - Core Measures Any of the following diagnoses?: none Exam - Constitutional Vitals: Temp Pulse Resp BP Pulse Ox 98 F 86 16 152/94 98 07/07/21 20:15 07/08/21 09:30 07/07/21 20:15 07/08/21 09:30 07/07/21 20:15 Plan Follow up with: SPENCER SILVERMAN MD [Staff Physician] - 7 Days
== END 2021-07-08 11:33 | disposition left against medical advice (07) | DRG 637 ==
LOC: ED 13:07 → CC1 17:56 → 3A 07-07 14:50
PROVIDERS: ADMIT Internal Medicine; ATTEND Hospitalist
DX: E11.10 Type 2 diabetes mellitus with ketoacidosis without coma (principal); G93.41 Metabolic encephalopathy; R65.10 Systemic inflammatory response syndrome (SIRS) of non-infectious origin without acute organ dysfunction; E87.1 Hypo-osmolality and hyponatremia; I10 Essential (primary) hypertension; E86.9 Volume depletion, unspecified; K21.9 Gastro-esophageal reflux disease without esophagitis; D64.9 Anemia, unspecified; E86.0 Dehydration; E11.65 Type 2 diabetes mellitus with hyperglycemia; E11.43 Type 2 diabetes mellitus with diabetic autonomic (poly)neuropathy; K31.84 Gastroparesis; Z83.3 Family history of diabetes mellitus; Z82.49 Family history of ischemic heart disease and other diseases of the circulatory system
CPT/HCPCS: 36415; 71045; 80048; 80053; 81001; 81025; 82010; 82140; 82803; 82962; 83735; 84100; 85025; 85027; 93005; G0378; J2354; J3480; J3490; Q9967; J0696; J1815; J2405; J7030; J7040

== ENCOUNTER 2021-10-27 08:37 | Emergency (ER) | payer BC ==
[2021-10-27] MEDS ORDERED: ONDANSETRON 4 MG ODT TAB PO ONE (12:04)
[2021-10-27] MEDS ORDERED: METOCLOPRAMIDE 10 MG/2 ML INJ IV ONE (12:48)
[2021-10-27] MEDS ORDERED: diphenhydrAMINE 50 MG/ML VIAL IV ONE (12:48)
[2021-10-27] MEDS ORDERED: SODIUM CHLORIDE 0.9% 1000 ML IV SOLN IV ONE (12:48)
[2021-10-27] MEDS ORDERED: HYOSCYAMINE SUBL 0.125 MG TAB SL ONE (12:49)
[2021-10-27 13:39] LABS: Alanine Aminotransferase 19 units/L (7-56); Albumin 4.7 g/dL (3.9-5); Blood Urea Nitrogen 11 mg/dL (7-17); Calcium 9.9 mg/dL (8.4-10.2); Hemolysis Index 4
[2021-10-27 13:40] LABS: BUN/Creatinine Ratio 28
--- NOTE | 2021-10-27 13:46 | Emergency Department Report ---
ED N/V/D HPI - General Chief complaint: Nausea/Vomiting/Diarrhea Stated complaint: VOMITTING Time Seen by Provider: 10/27/21 12:46 Source: patient Mode of arrival: Ambulatory Limitations: No Limitations - History of Present Illness Initial comments: 34-year-old insulin-dependent diabetic with history of gastroparesis [facility] emerged department complaining 1 day history of nausea headache and burning sensation to the upper stomach which started last night for unknown reasons. She reports no home no fevers, chills, sweats. No diarrhea, no rashes, no c onstipation but may have noticed some blood pressure. MD complaint: nausea, vomiting -: Gradual - Related Data Home Medications Medication Instructions Recorded Confirmed Last Taken Insulin NPH, Human [NovoLIN N] 21 units BID 07/07/21 07/07/21 07/05/21 Insulin Regular, Human [Novolin R] 7 unit IJ BID 07/07/21 07/07/21 07/05/21 Previous Rx's Medication Instructions Recorded Last Taken Type Hyoscyamine Subl [Levsin Sl] 0.125 mg SL Q4HR PRN #16 tablet 10/27/21 Unknown Rx Metoclopramide [Reglan] 10 mg PO BID #10 tab 10/27/21 Unknown Rx Allergies Allergy/AdvReac Type Severity Reaction Status Date / Time No Known Allergies Allergy Verified 07/06/21 13:17 ED Review of Systems ROS: Stated complaint: VOMITTING Other details as noted in HPI Comment: All other systems reviewed and negative ED Past Medical Hx - Past Medical History Hx Hypertension: Yes Hx Congestive Heart Failure: No Hx Diabetes: Yes Hx Asthma: No Hx COPD: No Hx HIV: No Additional medical history: gastroparesis - Surgical History Additional Surgical History: mouth - Social History Smoking Status: Never Smoker - Medications Home Medications: Home Medications Medication Instructions Recorded Confirmed Last Taken Type Insulin NPH, Human [NovoLIN N] 21 units BID 07/07/21 07/07/21 07/05/21 History Insulin Regular, Human [Novolin R] 7 unit IJ BID 07/07/21 07/07/21 07/05/21 History Hyoscyamine Subl [Levsin Sl] 0.125 mg SL Q4HR PRN #16 tablet 10/27/21 Unknown Rx Metoclopramide [Reglan] 10 mg PO BID #10 tab 10/27/21 Unknown Rx ED Physical Exam - General Limitations: No Limitations General appearance: alert, in no apparent distress - Head Head exam: Present: atraumatic, normocephalic - Eye Eye exam: Present: normal appearance, PERRL, EOMI - ENT ENT exam: Present: mucous membranes moist - Neck Neck exam: Present: normal inspection - Respiratory Respiratory exam: Present: normal lung sounds bilaterally, wheezes, rales. Absent: respiratory distress - Cardiovascular Cardiovascular Exam: Present: normal rhythm, tachycardia. Absent: systolic murmur, diastolic murmur, rubs, gallop - GI/Abdominal GI/Abdominal exam: Present: soft, normal bowel sounds - Extremities Exam Extremities exam: Present: normal inspection - Back Exam Back exam: Present: normal inspection - Neurological Exam Neurological exam: Present: alert, oriented X3 - Psychiatric Psychiatric exam: Present: normal affect, normal mood - Skin Skin exam: Present: warm, dry, intact, normal color. Absent: rash ED Course Vital Signs 10/27/21 10/27/21 09:31 17:50 Temperature 98.3 F 97.4 F L Pulse Rate 104 H 97 H Respiratory 16 16 Rate Blood Pressure 144/93 Blood Pressure 123/82 [Left] O2 Sat by Pulse 100 94 Oximetry ED Medical Decision Making - Lab Data Result diagrams: 10/27/21 14:08 10/27/21 12:51 - Medical Decision Making This patient is a 36 y/o female, presenting with apparent acute hyperglycemia. Differential diagnosis includes gastroentetiris, gasstritis, covid . Considered DKA versus HHS, sepsis as possible etiologies of the patients current presentation. However, given the current history & physical, including current glucose level, the current presentation is consistent with acute, asymptomatic hyperglycemia. Plan to treatment supportively. No indication for further workup at this time. Plan: supportive care, serial POC glucose monitoring, labs, serial reassessment Critical care attestation.: If time is entered above; I have spent that time in minutes in the direct care of this critically ill patient, excluding procedure time. ED Disposition Clinical Impression: Hyperemesis, Diabetes Disposition: HOME / SELF CARE / HOMELESS Is pt being admited?: No Does the pt Need Aspirin: No Condition: Stable Instructions: Diabetes Mellitus and Sick Day Management, Type 2 Diabetes Mellitus, Self Care, Adult, Nausea and Vomiting, Adult, Correction Insulin, Diabetes Mellitus Type 2 in Adults (ED) Prescriptions: Hyoscyamine Subl [Levsin Sl] 0.125 mg SL Q4HR PRN #16 tablet PRN Reason: Spasms Metoclopramide [Reglan] 10 mg PO BID #10 tab Referrals: ZE MILTON MD [Staff Physician] - 3-5 Days PRIMARY CARE, [Primary Care Provider] - 3-5 Days
[2021-10-27 16:06] LABS: Hematocrit 34.8 % (30.3-42.9); Hemoglobin 11.2 gm/dl (10.1-14.3); Mean Corpuscular HGB Conc 32 % (30-34); Mean Corpuscular Volume 77 fl (79-97); Platelet Count 271 K/mm3 (140-440); Red Blood Count 4.54 M/mm3 (3.65-5.03)
[2021-10-27 16:49] LABS: Total Cells Counted 100
[2021-10-27 16:50] LABS: Anisocytosis 1+; Band Neutrophils # (Manual) 0.2 K/mm3; Basophils % (Manual) 0 % (0.0-1.8); Eosinophils % (Manual) 0 % (0.0-4.3); Hypochromasia 1+; Ovalocytes Few; Platelet Estimate Consistent w Auto
[2021-10-27 17:52] VITALS: BP 123/82
== END 2021-10-27 17:52 | disposition home or self-care (01) ==
LOC: ED 08:37
DX: R11.2 Nausea with vomiting, unspecified (principal); R51.9 Headache, unspecified; I10 Essential (primary) hypertension; E11.9 Type 2 diabetes mellitus without complications; Z79.4 Long term (current) use of insulin; Z79.899 Other long term (current) drug therapy
CPT/HCPCS: 36415; 80053; 83690; 85007; 85025; 96361; 96374; 96375; 99283; J1200; J2765; J7030; J3490; Q0162